=== PATIENT | male | born 1995 | race Caucasian/White ===

== ENCOUNTER 2017-07-31 16:16 | Emergency (ER) | payer MEDICARE, MEDICAID ==
[~2017-07-31] VITALS: Ht 165.1 cm; Wt 80.1 kg
[2017-07-31] MEDS ORDERED: TOPR25TA PO (16:28)
[2017-07-31] MEDS ORDERED: TRAM50TA2 PO (16:28)
[2017-07-31] MEDS ORDERED: DEPA250T32 PO (16:28)
[2017-07-31 18:36] VITALS: BP 140/89
== END 2017-07-31 18:37 | disposition home or self-care (01) ==
LOC: M ED 16:16
DX: G89.4 Chronic pain syndrome (principal); Z72.0 Tobacco use

== ENCOUNTER 2017-08-12 17:56 | Emergency (ER) | payer MEDICARE, MEDICAID ==
[~2017-08-12] VITALS: Ht 165.1 cm; Wt 82.1 kg
[~2017-08-12 17:56] MED LIST: DEPA250T32 PO; TOPR25TA PO; TRAM50TA2 PO
[2017-08-12 20:07] LABS: BASO # 0.2 10^3/uL (0.0-0.2); BASO % 1.1 % (0.0-1.0); EOS # 0.4 10^3/uL (0.0-0.50); EOS % 2.8 % (0.0-3.0); IMMATURE GRANULOCYTE % 0.2 % (0-0); LYMPH # 4.4 10^3/uL (1.5-6.5); LYMPH % 31.4 % (24.0-44.0); MEAN CORPUSCULAR HEMOGLOBIN 28.1 pg (27.0-33.0); MEAN CORPUSCULAR HGB CONC 34.2 g/dl (32.0-36.5); MEAN CORPUSCULAR VOLUME 82.2 fl (80.0-96.0); MONO # 1.1 10^3/uL (0.0-0.8); MONO % 8.1 % (0.0-5.0); NEUTROPHILS # 7.8 10^3/uL (1.8-7.7); NEUTROPHILS % 56.4 % (36.0-66.0); PLATELET COUNT, AUTOMATED 283 10^3/uL (150-450); RED CELL DISTRIBUTION WIDTH 13.2 % (11.5-14.5); WHITE BLOOD COUNT 13.9 10^3/uL (4.0-10.0)
[2017-08-12 20:31] LABS: ALBUMIN 3.8 GM/DL (3.2-5.2); ALBUMIN/GLOBULIN RATIO 1.06 (1.00-1.93); ALKALINE PHOSPHATASE 105 U/L (45-117); ALT/SGPT 88 U/L (12-78); ANION GAP 8 MEQ/L (8-16); AST/SGOT 28 U/L (15-37); BILIRUBIN,TOTAL 0.3 MG/DL (0.2-1.0); BLOOD UREA NITROGEN 10 MG/DL (7-18); CALCIUM LEVEL 9.4 MG/DL (8.5-10.1); CARBON DIOXIDE LEVEL 28 MEQ/L (21-32); CHLORIDE LEVEL 106 MEQ/L (98-107); GLOMERULAR FILTRATION RATE > 60.0 (>60); GLUCOSE, FASTING 109 MG/DL (70-105); POTASSIUM SERUM 3.8 MEQ/L (3.5-5.1); SODIUM LEVEL 142 MEQ/L (136-145); TOTAL PROTEIN 7.4 GM/DL (6.4-8.2)
--- NOTE | 2017-08-12 21:50 | REPUSA ---
Clinical history: Right upper quadrant pain. Findings: The pancreas is limited in visualization secondary to overlying bowel gas, but appears umm sly unremarkable. The liver demonstrates uniform echotexture and echogenicity, with no mass lesions. The gallbladder is unremarkable. The common bile duct measures 2 mm and is within normal limits. Ther e is no ascites. The right kidney measures 11.2 cm in length, and is unremarkable. Impression: Unremarkable ultrasound examination of the right upper quadrant.
[2017-08-12 21:59] VITALS: BP 137/91
== END 2017-08-12 22:21 | disposition home or self-care (01) ==
LOC: M ED 17:56
DX: K92.1 Melena (principal); R56.9 Unspecified convulsions; Z79.899 Other long term (current) drug therapy; Z88.8 Allergy status to other drugs, medicaments and biological substances; F17.210 Nicotine dependence, cigarettes, uncomplicated

== ENCOUNTER → 2017-09-13 | Outpatient (CLI) | payer MEDICARE, MEDICAID ==
[2017-09-13 15:53] LABS: BASO # 0.1 10^3/uL (0.0-0.2); BASO % 0.8 % (0.0-1.0); EOS # 0.4 10^3/uL (0.0-0.50); EOS % 3.3 % (0.0-3.0); IMMATURE GRANULOCYTE % 0.4 % (0-0); LYMPH # 3.5 10^3/uL (1.5-6.5); MEAN CORPUSCULAR HEMOGLOBIN 27.9 pg (27.0-33.0); MEAN CORPUSCULAR VOLUME 84.5 fl (80.0-96.0); MONO # 1.2 10^3/uL (0.0-0.8); MONO % 8.8 % (0.0-5.0); NEUTROPHILS # 7.8 10^3/uL (1.8-7.7); NEUTROPHILS % 59.7 % (36.0-66.0); PLATELET COUNT, AUTOMATED 253 10^3/uL (150-450); RED CELL DISTRIBUTION WIDTH 13.2 % (11.5-14.5); WHITE BLOOD COUNT 13.1 10^3/uL (4.0-10.0)
[2017-09-13 16:08] LABS: ALBUMIN 3.6 GM/DL (3.2-5.2); ALBUMIN/GLOBULIN RATIO 1.06 (1.00-1.93); ALKALINE PHOSPHATASE 107 U/L (45-117); ALT/SGPT 36 U/L (12-78); ANION GAP 6 MEQ/L (8-16); AST/SGOT 11 U/L (7-37); BILIRUBIN,TOTAL 0.4 MG/DL (0.2-1.0); BLOOD UREA NITROGEN 7 MG/DL (7-18); CALCIUM LEVEL 9.5 MG/DL (8.5-10.1); CARBON DIOXIDE LEVEL 33 MEQ/L (21-32); CHLORIDE LEVEL 101 MEQ/L (98-107); CREATININE FOR GFR 0.71 MG/DL (0.70-1.30); GLOMERULAR FILTRATION RATE > 60.0 (>60); GLUCOSE, FASTING 79 MG/DL (70-105); SODIUM LEVEL 140 MEQ/L (136-145)
== END ==
LOC: M LABDRAW1 13:20
PROVIDERS: ATTEND Psychiatry & Neurology Neurology
DX: G40.909 Epilepsy, unspecified, not intractable, without status epilepticus (principal)

== ENCOUNTER → 2017-09-14 | Outpatient (CLI) | payer MEDICARE, MEDICAID ==
--- NOTE | 2017-09-15 08:43 | REP ---
MRI CERVICAL SPINE WITHOUT CONTRAST: HISTORY: Spondylosis. A disc bulge is present at the C4-5 level. There is minimal effacement of the thecal sac without spinal cord compression. The C4 neural foramina are patent. There is no other disc bulge or herniation. The remaining neural foramina are patent. The spinal cord is normal in signal intensity. Normal signal intensity is present in the cervical vertebral bodies. IMPRESSION: Disc bulge at the C4-5 level without spinal cord compression. Signed by Tha Medrano MD 09/15/2017 08:54 A
--- NOTE | 2017-09-15 08:47 | REP ---
MRI LUMBAR SPINE WITHOUT CONTRAST: HISTORY: Back pain. Slight decreased signal intensity on T2-weighted images is present in the L1-2 intervertebral disc. The disc is decreased in height. These findings are consistent with disc degeneration. A diffuse disc bulge is present at the L1-2 level. There is minimal compression of the thecal sac. The L1 nerves exit the neural foramina without compression. There is no disc bulge or herniation at the L2-3, L3-4 and L5-S1 levels. The nerves exit the neural foramina without compression. A diffuse disc bulge is present at the L4-5 level. There is minimal compression of the thecal sac. The L4 nerves exit the neural foramina without compression. The conus medullaris is normal in appearance terminating at the level of the T12-L1 intervertebral disc. Normal signal intensity is present in the lumbar vertebral bodies. IMPRESSION: Diffuse disc bulges at the L1-2 and L4-5 levels with minimal thecal sac compression. Signed by Tha Medrano MD 09/15/2017 08:54 A
== END ==
LOC: M RAD 16:41
PROVIDERS: ATTEND Pain Medicine Interventional Pain Medicine
DX: M79.609 Pain in unspecified limb (principal); M79.1 Myalgia; M47.812 Spondylosis without myelopathy or radiculopathy, cervical region; M47.817 Spondylosis without myelopathy or radiculopathy, lumbosacral region; M54.12 Radiculopathy, cervical region; M54.16 Radiculopathy, lumbar region

== ENCOUNTER → 2017-09-20 | Outpatient (CLI) | payer MEDICARE, MEDICAID ==
--- NOTE | 2017-09-20 12:31 | REP ---
ULTRASOUND ABDOMEN: Real-time sonographic evaluation of the abdomen performed. The gallbladder demonstrates on evidence of intraluminal sludge or calculi, wall thickening or pericholecystic fluid. There is no intrahepatic or extrahepatic biliary dilatation, common bile duct measuring 2 mm in diameter. Liver and pancreas demonstrate homogeneous echotexture with no gross mass. Pancreatic tail is not well see due to overlying bowel gas. The spleen is normal in size with no intrinsic abnormality. The length is 11.5 cm. The kidneys are normal in size and echotexture, right kidney measuring 1.1 x 5.7 x 5.7 cm and left kidney 11.3 x 5.3 x 5.9 cm. There is no hydronephrosis, renal mass or nephrolithiasis. The abdominal aorta is normal in caliber, maximum AP diameter approximately 1.9 cm, mid aspect 1.7 cm and distally 1.5 cm. No ascites is seen. IMPRESSION: Essentially negative abdominal ultrasound. Signed by Wilton Estrada MD 09/20/2017 01:55 P
== END ==
LOC: M RAD 07:53
PROVIDERS: ATTEND Physician Assistant Medical
DX: R10.9 Unspecified abdominal pain (principal)

== ENCOUNTER → 2017-10-10 | Outpatient (CLI) | payer MEDICARE, MEDICAID ==
--- NOTE | 2017-10-10 16:23 | REP ---
Left wrist: Four views. History: Pain in the left wrist. Findings: Four views of the left wrist show overall normal mineralization. Bones, joints, soft tissues are unremarkable. No fracture or subluxation is seen. Impression: Negative left wrist radiographs. Signed by Wesley Cox MD 10/11/2017 02:43 P
== END ==
LOC: M RAD 14:34
PROVIDERS: ATTEND Physician Assistant Medical
DX: M25.532 Pain in left wrist (principal)

== ENCOUNTER → 2018-01-08 | Outpatient (REF) | payer OTHER, MEDICARE ==
[2018-01-08 17:49] LABS: BASO # 0.1 10^3/uL (0.0-0.2); BASO % 1.1 % (0.0-1.0); EOS # 0.3 10^3/uL (0.0-0.50); EOS % 2.7 % (0.0-3.0); HEMATOCRIT 49.9 % (42.0-52.0); HEMOGLOBIN 16.5 g/dl (14.0-18.0); IMMATURE GRANULOCYTE % 0.2 % (0-3.0); LYMPH # 4.5 10^3/uL (1.5-6.5); LYMPH % 40.3 % (24.0-44.0); MEAN CORPUSCULAR HGB CONC 33.1 g/dl (32.0-36.5); MEAN CORPUSCULAR VOLUME 84.6 fl (80.0-96.0); MONO # 0.8 10^3/uL (0.0-0.8); MONO % 7.6 % (0.0-5.0); NEUTROPHILS # 5.3 10^3/uL (1.8-7.7); NEUTROPHILS % 48.1 % (36.0-66.0); PLATELET COUNT, AUTOMATED 301 10^3/uL (150-450); RED CELL DISTRIBUTION WIDTH 13.4 % (11.5-14.5); WHITE BLOOD COUNT 11.1 10^3/uL (4.0-10.0)
[2018-01-08 18:21] LABS: ALBUMIN 4.3 GM/DL (3.2-5.2); ALBUMIN/GLOBULIN RATIO 1.23 (1.00-1.93); ALKALINE PHOSPHATASE 112 U/L (45-117); ALT/SGPT 72 U/L (12-78); ANION GAP 5 MEQ/L (8-16); AST/SGOT 24 U/L (7-37); BILIRUBIN,TOTAL 0.4 MG/DL (0.2-1.0); BLOOD UREA NITROGEN 11 MG/DL (7-18); CALCIUM LEVEL 9.4 MG/DL (8.5-10.1); CARBON DIOXIDE LEVEL 30 MEQ/L (21-32); CHLORIDE LEVEL 105 MEQ/L (98-107); CREATININE FOR GFR 0.75 MG/DL (0.70-1.30); GLOMERULAR FILTRATION RATE > 60.0 (>60); GLUCOSE, FASTING 79 MG/DL (70-100); POTASSIUM SERUM 4.4 MEQ/L (3.5-5.1); SODIUM LEVEL 140 MEQ/L (136-145); THYROID STIMULATING HORMONE 0.906 uIU/ML (0.358-3.740); TOTAL PROTEIN 7.8 GM/DL (6.4-8.2)
[2018-01-08 19:08] LABS: ESTIMATED AVERAGE GLUCOSE 108 MG/DL (60-110); HEMOGLOBIN A1c 5.4 %
[2018-01-08 20:41] LABS: HIV 1&2 SCREEN CENTAUR NEGATIVE (NEGATIVE)
[2018-01-08 22:20] LABS: CHLAMYDIA DNA AMPLIFICATION NEGATIVE (NEGATIVE); GC DNA AMPLIFICATION NEGATIVE (NEGATIVE)
== END ==
LOC: M LAB REF 16:31
DX: Z11.3 Encounter for screening for infections with a predominantly sexual mode of transmission (principal); Z83.3 Family history of diabetes mellitus; Z00.00 Encounter for general adult medical examination without abnormal findings

== ENCOUNTER 2018-02-22 19:52 | Emergency (ER) | payer OTHER, MEDICARE | END 2018-02-22 22:19 | disposition left against medical advice (07) | LOC: M ED 19:52 | DX: Z53.29 Procedure and treatment not carried out because of patient's decision for other reasons (principal) ==

== ENCOUNTER → 2018-06-20 | Outpatient (REF) | payer MEDICARE, MEDICAID | LOC: M SFHCLERA 13:18 | DX: L02.415 Cutaneous abscess of right lower limb (principal); L02.419 Cutaneous abscess of limb, unspecified (principal) | CPT/HCPCS: 87070; 87186 ==

== ENCOUNTER → 2018-07-12 | Outpatient (REF) | payer MEDICARE, MEDICAID ==
[2018-07-12 19:33] LABS: INR 1.01; PROTHROMBIN TIME 13.4 SECONDS (12.1-14.4)
[2018-07-12 19:36] LABS: BASO # 0.1 10^3/uL (0.0-0.2); BASO % 0.9 % (0.0-1.0); EOS # 0.2 10^3/uL (0.0-0.50); EOS % 1.7 % (0.0-3.0); HEMATOCRIT 50.9 % (42.0-52.0); HEMOGLOBIN 16.7 g/dl (13.5-17.5); IMMATURE GRANULOCYTE % 0.4 % (0-3.0); LYMPH # 3.6 10^3/uL (1.5-6.5); LYMPH % 34.9 % (24.0-44.0); MEAN CORPUSCULAR HEMOGLOBIN 27.9 pg (27.0-33.0); MEAN CORPUSCULAR HGB CONC 32.8 g/dl (32.0-36.5); MEAN CORPUSCULAR VOLUME 85.1 fl (80.0-96.0); MONO # 0.8 10^3/uL (0.0-0.8); MONO % 7.5 % (0.0-5.0); NEUTROPHILS # 5.7 10^3/uL (1.8-7.7); NEUTROPHILS % 54.6 % (36.0-66.0); PLATELET COUNT, AUTOMATED 325 10^3/uL (150-450); RED BLOOD COUNT 5.98 10^6/uL (4.30-6.10); RED CELL DISTRIBUTION WIDTH 13.3 % (11.5-14.5); WHITE BLOOD COUNT 10.4 10^3/uL (4.0-10.0)
[2018-07-12 19:38] LABS: ALBUMIN 4.6 GM/DL (3.2-5.2); ALBUMIN/GLOBULIN RATIO 1.18 (1.00-1.93); ALKALINE PHOSPHATASE 99 U/L (45-117); ALT/SGPT 64 U/L (12-78); ANION GAP 8 MEQ/L (8-16); AST/SGOT 23 U/L (7-37); BILIRUBIN,TOTAL 0.5 MG/DL (0.2-1.0); BLOOD UREA NITROGEN 9 MG/DL (7-18); CALCIUM LEVEL 9.7 MG/DL (8.5-10.1); CARBON DIOXIDE LEVEL 33 MEQ/L (21-32); CHLORIDE LEVEL 101 MEQ/L (98-107); CREATININE FOR GFR 0.79 MG/DL (0.70-1.30); GLOMERULAR FILTRATION RATE > 60.0 (>60); GLUCOSE, FASTING 94 MG/DL (70-100); POTASSIUM SERUM 3.8 MEQ/L (3.5-5.1); SODIUM LEVEL 142 MEQ/L (136-145); TOTAL PROTEIN 8.5 GM/DL (6.4-8.2)
[2018-07-12 20:43] LABS: ESTIMATED AVERAGE GLUCOSE 108 MG/DL (60-110); HEMOGLOBIN A1c 5.4 %
== END ==
LOC: M LAB REF 18:45
DX: Z01.818 Encounter for other preprocedural examination (principal); Z79.01 Long term (current) use of anticoagulants
CPT/HCPCS: 84443

== ENCOUNTER → 2018-09-03 | Outpatient (REF) | payer MEDICARE, MEDICAID ==
[2018-09-03 18:11] LABS: BASO # 0.1 10^3/uL (0.0-0.2); BASO % 0.9 % (0.0-1.0); EOS # 0.2 10^3/uL (0.0-0.50); EOS % 1.6 % (0.0-3.0); HEMATOCRIT 47.3 % (42.0-52.0); HEMOGLOBIN 15.9 g/dl (13.5-17.5); IMMATURE GRANULOCYTE % 0.3 % (0-3.0); LYMPH # 3.7 10^3/uL (1.5-6.5); LYMPH % 29.9 % (24.0-44.0); MEAN CORPUSCULAR HEMOGLOBIN 28.1 pg (27.0-33.0); MEAN CORPUSCULAR HGB CONC 33.6 g/dl (32.0-36.5); MEAN CORPUSCULAR VOLUME 83.6 fl (80.0-96.0); MONO # 0.6 10^3/uL (0.0-0.8); MONO % 4.8 % (0.0-5.0); NEUTROPHILS # 7.8 10^3/uL (1.8-7.7); NEUTROPHILS % 62.5 % (36.0-66.0); PLATELET COUNT, AUTOMATED 256 10^3/uL (150-450); RED BLOOD COUNT 5.66 10^6/uL (4.30-6.10); RED CELL DISTRIBUTION WIDTH 13.9 % (11.5-14.5); WHITE BLOOD COUNT 12.4 10^3/uL (4.0-10.0)
[2018-09-03 18:27] LABS: ALBUMIN 4.3 GM/DL (3.2-5.2); ALBUMIN/GLOBULIN RATIO 1.23 (1.00-1.93); ALKALINE PHOSPHATASE 101 U/L (45-117); ALT/SGPT 27 U/L (12-78); ANION GAP 11 MEQ/L (8-16); AST/SGOT 14 U/L (7-37); BILIRUBIN,TOTAL 0.4 MG/DL (0.2-1.0); BLOOD UREA NITROGEN 6 MG/DL (7-18); CALCIUM LEVEL 9.8 MG/DL (8.5-10.1); CARBON DIOXIDE LEVEL 31 MEQ/L (21-32); CHLORIDE LEVEL 96 MEQ/L (98-107); CREATININE FOR GFR 0.72 MG/DL (0.70-1.30); FREE THYROXINE INDEX 2.5 % (1.4-3.8); GLOMERULAR FILTRATION RATE > 60.0 (>60); GLUCOSE, FASTING 109 MG/DL (70-100); POTASSIUM SERUM 3.4 MEQ/L (3.5-5.1); SODIUM LEVEL 138 MEQ/L (136-145); T UPTAKE 29 % (33-40); THYROID STIMULATING HORMONE 0.702 uIU/ML (0.358-3.740); THYROXINE (T4) 8.6 UG/DL (4.5-12.0); TOTAL PROTEIN 7.8 GM/DL (6.4-8.2); VALPROIC ACID (DEPAKOTE) 33.2 UG/ML (50.0-100.0)
[2018-09-03 18:28] LABS: TOTAL 25(OH) VITAMIN D 21.5 NG/ML (30.0-100.0)
[2018-09-03 19:24] LABS: ESTIMATED AVERAGE GLUCOSE 108 MG/DL (60-110); HEMOGLOBIN A1c 5.4 %
== END ==
LOC: M LAB REF 16:30
DX: F34.1 Dysthymic disorder (principal)
CPT/HCPCS: 84443

== ENCOUNTER → 2018-09-03 | Outpatient (REF) | payer MEDICARE, MEDICAID | LOC: M LAB REF 17:43 | DX: F34.1 Dysthymic disorder (principal) ==

== ENCOUNTER → 2019-05-07 | Outpatient (CLI) | payer MEDICARE, MEDICAID ==
[~2019-05-07] MED LIST changes: +HYDR25TAB; +OMEP40CA2; +VENTOLIN
[2019-05-07 09:23] LABS: ALBUMIN 3.9 GM/DL (3.2-5.2); ALT/SGPT 30 U/L (12-78); BILIRUBIN,TOTAL 0.3 MG/DL (0.2-1.0); BLOOD UREA NITROGEN 8 MG/DL (7-18); CALCIUM LEVEL 9.4 MG/DL (8.5-10.1); CARBON DIOXIDE LEVEL 33 MEQ/L (21-32); CHLORIDE LEVEL 110 MEQ/L (98-107); CREATININE FOR GFR 0.82 MG/DL (0.70-1.30); GLOMERULAR FILTRATION RATE > 60.0 (>60); GLUCOSE, FASTING 98 MG/DL (70-100); POTASSIUM SERUM 3.3 MEQ/L (3.5-5.1); SODIUM LEVEL 132 MEQ/L (136-145); TOTAL PROTEIN 7.3 GM/DL (6.4-8.2); VALPROIC ACID (DEPAKOTE) 14.3 UG/ML (50.0-100.0)
== END ==
LOC: M LAB 08:19
PROVIDERS: ATTEND Nurse Practitioner Family
DX: G40.89 Other seizures (principal); R40.4 Transient alteration of awareness

== ENCOUNTER 2019-05-22 16:19 | Emergency (ER) | payer MEDICARE, MEDICAID ==
[~2019-05-22] VITALS: Ht 165.1 cm; Wt 75.9 kg
[2019-05-22] MEDS ORDERED: RANI150T14 (16:39)
[2019-05-22] MEDS ORDERED: DICL50TAB (16:39)
[2019-05-22] MEDS ORDERED: METO1TAB32 (16:39)
[2019-05-22] MEDS ORDERED: ACETAMINOPHEN TAB 650MG DOSE (2X325MG) PO ONE (17:45)
[2019-05-22] MEDS ORDERED: KETOROLAC 60 MG/2 ML VIAL (J1885) IM ONE (17:45)
--- NOTE | 2019-05-22 18:57 | REPVR ---
EXAM: CT Lumbar Spine Without Contrast EXAM DATE/TIME: 05/22/2019 5:54 PM CLINICAL HISTORY: 23 years old, male; Pain; Sciatica; Additional info: Low back pain, sciatica TECHNIQUE: Imaging protocol: Computed tomography images of the lumbar spine without contrast. Coronal and sagittal reformatted images were created and reviewed. Radiation optimization: All CT scans at this facility use at least one of these dose optimization techniques: automated exposure control; mA and/or kV adjustment per patient size (includes targeted exams where dose is matched to clinical indication); or iterative reconstruction. COMPARISON: MRI-Spine, L.S. without con 09/14/2017 5:07 PM FINDINGS: No segmental lumbar vertebral malalignment. Vertebral body height and morphology is maintained. No acute fracture or destructive process. Intervertebral disc height is maintained for age. No CT evidence of a large disc extrusion. Mild posterior annular ossification L1-2. No significant spinal canal narrowing. Appearance is similar compared to the prior MRI No dilatation of the imaged distal abdominal aorta. No significant abnormality of the imaged retroperitoneum. IMPRESSION: No fracture or other acute abnormality involving the lumbar spine. Minor stable disc bulge and annular ossification L1-2, similar to prior MRI Electronically signed by: Shiva Aguilar On 05/22/2019 18:57:26 PM
[2019-05-22] MEDS ORDERED: ROBA500T PO (19:06)
[2019-05-22] MEDS ORDERED: MEDR4PAK PO (19:06)
[2019-05-22 19:14] VITALS: BP 118/60
== END 2019-05-22 19:46 | disposition home or self-care (01) ==
LOC: M ED 16:19
DX: M54.42 Lumbago with sciatica, left side (principal); M51.36 Other intervertebral disc degeneration, lumbar region; M51.26 Other intervertebral disc displacement, lumbar region; Z72.0 Tobacco use; R56.9 Unspecified convulsions; I10 Essential (primary) hypertension; J44.9 Chronic obstructive pulmonary disease, unspecified; Z79.899 Other long term (current) drug therapy; Z88.8 Allergy status to other drugs, medicaments and biological substances
CPT/HCPCS: 72131; 96372; 99283; J1885

== ENCOUNTER 2019-08-02 04:29 | Inpatient (IN) | payer MEDICARE, MEDICAID ==
[~2019-08-02] VITALS: Ht 167.6 cm; Wt 75.5 kg
[~2019-08-02 04:29] MED LIST changes: +DICL50TAB; +MEDR4PAK PO; +METO1TAB32; +RANI150T14; +ROBA500T PO
[2019-08-02 05:31] LABS: HEMATOCRIT 47.5 % (42.0-52.0); HEMOGLOBIN 15.8 g/dl (13.5-17.5); MEAN CORPUSCULAR HEMOGLOBIN 28.3 pg (27.0-33.0); MEAN CORPUSCULAR HGB CONC 33.3 g/dl (32.0-36.5); PLATELET COUNT, AUTOMATED 281 10^3/uL (150-450); RED BLOOD COUNT 5.59 10^6/uL (4.30-6.10); WHITE BLOOD COUNT 9.6 10^3/uL (4.0-10.0)
[2019-08-02 06:07] LABS: ACETAMINOPHEN LEVEL < 2.0 UG/ML (10.0-30.0); ALT/SGPT 27 U/L (12-78); BILIRUBIN,DIRECT 0.1 MG/DL (0.0-0.2); BILIRUBIN,TOTAL 0.3 MG/DL (0.2-1.0); BLOOD UREA NITROGEN 9 MG/DL (7-18); CALCIUM LEVEL 9.1 MG/DL (8.5-10.1); CARBON DIOXIDE LEVEL 26 MEQ/L (21-32); CHLORIDE LEVEL 104 MEQ/L (98-107); CREATININE FOR GFR 0.86 MG/DL (0.70-1.30); ETHYL ALCOHOL (ETHANOL) < 0.003 % (0.000-0.010); GLOMERULAR FILTRATION RATE > 60.0 (>60); GLUCOSE, FASTING 134 MG/DL (70-100); POTASSIUM SERUM 3.6 MEQ/L (3.5-5.1); SALICYLATE LEVEL 3.5 MG/DL (5.0-30.0); SODIUM LEVEL 140 MEQ/L (136-145); THYROID STIMULATING HORMONE 0.705 uIU/ML (0.358-3.740); TOTAL PROTEIN 7.1 GM/DL (6.4-8.2)
[2019-08-02 06:09] LABS: AMPHETAMINES LEVEL URINE NEGATIVE (NEGATIVE); BARBITURATES URINE NEGATIVE (NEGATIVE); BENZODIAZEPINES URINE NEGATIVE (NEGATIVE); CANNABINOIDS URINE POSITIVE (NEGATIVE); COCAINE METABOLITE URINE NEGATIVE (NEGATIVE); METHADONE URINE NEGATIVE (NEGATIVE); OPIATES URINE NEGATIVE (NEGATIVE); PHENCYCLIDINE URINE NEGATIVE (NEGATIVE)
[2019-08-02] MEDS ORDERED: traZODone 50 MG TAB PO PRN (06:45)
[2019-08-02] MEDS ORDERED: MAALOX 30 ML SUSP *UDC PO PRN (06:45)
[2019-08-02] MEDS ORDERED: MOM 30ML SUSPENSION UDC PO PRN (06:45)
[2019-08-02] MEDS ORDERED: DIVA250T67 PO (06:47)
[2019-08-02] MEDS ORDERED: LOSA25TA14 PO (06:47)
[2019-08-02] MEDS ORDERED: HYDR-3363 PO (06:47)
[2019-08-02] MEDS ORDERED: PROAAER10 INH (06:47)
[2019-08-02] MEDS ORDERED: OMEP-221 PO (06:47)
[2019-08-02] MEDS ORDERED: CLOT1CRE71 TOP (06:47)
[2019-08-02] MEDS: NICOTINE 21MG/24HR 1 EA TRANSDERMAL TD SCH (09:18)
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
[2019-08-02 15:39] VITALS: BP 131/88
[2019-08-02] MEDS: ACETAMINOPHEN TAB 650MG DOSE (2X325MG) PO PRN (17:17)
[2019-08-02] MEDS ORDERED: OLANZapine ORAL DISINTEGRATING TAB 5MG PO SCH ×2 (18:00→21:00)
[2019-08-02] MEDS ORDERED: OLANZapine ORAL DISINTEGRATING TAB 5MG PO PRN (18:00)
[2019-08-02] MEDS: hydrOXYzine 25 MG TAB PO SCH (21:37)
[2019-08-03 06:52] VITALS: BP 133/74
[2019-08-03] MEDS ORDERED: VENLAFAXINE **XR** 37.5 MG CAPSULE PO SCH (09:00)
[2019-08-03] MEDS: NICOTINE 21MG/24HR 1 EA TRANSDERMAL TD SCH (09:09)
[2019-08-03] MEDS ORDERED: ALBUTEROL 90 MCG/ACT 8GM HFA INHALER INH PRN (09:15)
[2019-08-03] MEDS: DIVALPROEX 250 MG TAB PO SCH ×2 (09:24→21:41)
[2019-08-03] MEDS: ACETAMINOPHEN TAB 650MG DOSE (2X325MG) PO PRN (09:25)
[2019-08-03] MEDS: OMEPRAZOLE 20 MG CAP PO SCH (09:25)
[2019-08-03] MEDS: LOSARTAN 25 MG TAB PO SCH (09:50)
--- NOTE | 2019-08-03 13:01 | HPEPDOC ---
[facility] Medical History & Physical Date of Admission Aug 03, 2019 Date of Service: Aug 03, 2019 History and Physical CHIEF COMPLAINT: Medical co-management HISTORY OF PRESENT ILLNESS: 23 yo male admitted to [facility], complains of chronic back pain. Denies chest pain, shortness of breath, headaches, changes in vision, N/V/D, bladder/bowel symptoms, numbness/tingling lower extremities, saddle paresthesia. PAST MEDICAL HISTORY: COPD as per patient SOCIAL HISTORY: Tobacco use:13 pack year history ETOH: denies Illicit drug use: admits to occasional marijuana use ALLERGIES: Please see below. REVIEW OF SYSTEMS: Negative except as per HPI. HOME MEDICATIONS: Please see below. PHYSICAL EXAMINATION: VITAL SIGNS: See below General: NAD, sitting comfortably in bed HEENT: NC/AT, EOMI, PERRL Lungs: CTA B/L Heart: +S1S2, RRR Abd: soft, NT, +BS Ext: no edema LABORATORY DATA: See below. MICROBIOLOGY: Please see below. ASSESSMENT: 23 yo male admitted to [facility], PMHx of COPD as per patient, nicotine abuse. #COPD - as per patient - admits to nicotine use - continue with nicotine replacement therapy #psych - as per primary team #chronic back pain - no alarming symptoms Vital Signs Vital Signs Date Time Temp Pulse Resp B/P (MAP) Pulse Ox O2 Delivery O2 Flow Rate FiO2 08/03/19 09:50 131/84 08/03/19 06:52 97.1 71 16 08/02/19 08:13 98 Room Air Home Medications Scheduled Divalproex Sodium (Divalproex Sodium) 250 Mg Tablet.dr, 250 MG PO BID Hydroxyzine HCl (Hydroxyzine HCl) 25 Mg Tablet, 25 MG PO QHS Losartan Potassium (Losartan Potassium) 25 Mg Tablet, 25 MG PO DAILY Omeprazole (Omeprazole) 40 Mg Capsule.dr, 40 MG PO DAILY Scheduled PRN Albuterol Sulfate (Proair Hfa) 8.5 Gm Hfa.aer.ad, 2 PUFF INH Q4H PRN for SHORTNESS OF BREATH Clotrimazole/Betamethasone Dip (Clotrimazole-Betamethasone Crm) 15 Gm Cream..g., 1 DOSE TOP BID PRN for RASH APPLIES TO LEGS AND ARMS NEEDED Allergies Coded Allergies: ondansetron (Verified Allergy, Unknown, 05/22/19) A-FIB/CHADSVASC A-FIB History Current/History of A-Fib/PAF?: No VON WORLEY MD Aug 03, 2019 13:01
[2019-08-03] MEDS ORDERED: LORazepam 1 MG TAB PO STA (14:53)
[2019-08-03] MEDS ORDERED: LORazepam 1 MG TAB PO PRN (15:00)
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
[2019-08-03 16:03] VITALS: BP 135/87
[2019-08-03] MEDS: hydrOXYzine 25 MG TAB PO SCH (21:41)
[2019-08-03] MEDS: OLANZapine 10 MG TAB PO SCH (21:41)
[2019-08-03] MEDS: CLOTRIMAZOLE 1% TOPICAL CREAM 30GM TOP PRN (22:05)
[2019-08-04 06:37] VITALS: BP 115/68
[2019-08-04] MEDS: NICOTINE 21MG/24HR 1 EA TRANSDERMAL TD SCH (08:03)
[2019-08-04] MEDS: DIVALPROEX 250 MG TAB PO SCH ×2 (08:03→19:51)
[2019-08-04] MEDS: OMEPRAZOLE 20 MG CAP PO SCH (08:03)
[2019-08-04] MEDS: OLANZapine 5 MG TAB PO SCH (08:04)
[2019-08-04] MEDS: LOSARTAN 25 MG TAB PO SCH (08:06)
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
[2019-08-04] MEDS: ACETAMINOPHEN TAB 650MG DOSE (2X325MG) PO PRN ×2 (13:06→19:51)
[2019-08-04 16:03] VITALS: BP 129/75
[2019-08-04] MEDS: OLANZapine 10 MG TAB PO SCH (19:51)
[2019-08-04] MEDS: hydrOXYzine 25 MG TAB PO SCH (19:51)
[2019-08-04] MEDS: CLOTRIMAZOLE 1% TOPICAL CREAM 30GM TOP PRN (19:53)
[2019-08-05] MEDS ORDERED: IBUPROFEN 800 MG TAB PO ONE (00:11)
[2019-08-05 06:20] VITALS: BP 134/77
[2019-08-05 08:12] VITALS: BP 133/91
[2019-08-05] MEDS: DIVALPROEX 250 MG TAB PO SCH (08:12)
[2019-08-05] MEDS: OLANZapine 5 MG TAB PO SCH (08:12)
[2019-08-05] MEDS: LOSARTAN 25 MG TAB PO SCH (08:12)
[2019-08-05] MEDS: OMEPRAZOLE 20 MG CAP PO SCH (08:12)
[2019-08-05] MEDS: NICOTINE 21MG/24HR 1 EA TRANSDERMAL TD SCH (08:13)
[2019-08-05] MEDS ORDERED: NICO21PAT TD (09:23)
[2019-08-05] MEDS ORDERED: OLAN10TA2 PO (09:23)
--- NOTE | 2019-08-05 09:29 | MHDSPDOC ---
[facility] Discharge Summary Discharge Summary DATE OF ADMISSION: Aug 02, 2019 at 06:41 DATE OF DISCHARGE: 08/05/19 Discharge Chuck Pappas MRN: N/A Date of : N/A Date of Service: 08/05/2019 Diagnoses Unspecified psychotic disorder. Rule out substance-induced versus schizophrenia versus bipolar. Tobacco use disorder, use disorder, severe. Alcohol use disorder, severe, in remission. History of Present Illness The patient, a 23-year-old man, presented to [facility] claiming suicidal thoughts, auditory hallucinations, increasing paranoia, grandiose thoughts and difficulty attending to his basic needs. He reports he has moved out from [place] to be with his "." He continued to report that his thoughts have become more complex and that he started to endorse suicidal thoughts. He is not established with any mental health care providers in the local area, but had previously been on medications that was "really helpful." Consultants Involved Hospitalist/PCP screening Treatment and Progress On The Unit The patient was admitted to the inpatient unit, started on Zyprexa 5 mg nightly. He was noted to have some paranoia and bizarreness, but was generally amenable. Over the weekend, it was noted that he had some paranoia and did focus on a specific staff member, however, he demonstrated no concerning ideation or behavior, had been denying suicidal or homicidal ideation and had been amenable to staff redirection. On discharge, he had 10 mg nightly of Zyprexa, 5 mg in the morning with positive effects. The patient requested discharge and on the day of discharge, he did not meet involuntary criteria on my clinical judgment as despite his odd manner at times and reported episodes of paranoia, he has not acted on them or posing a significant danger to himself or others and has been denying suicidality prior to his discharge. He declined further voluntary admission and thus was discharged in good brigette as he could no longer be held against his will. He was able to cooperate with this discharge sufficiently well and his presented collateral information suggesting that the patient's functionality is close to his baseline at this time. Discharge Assessment The patient a 23-year-old man with a history schizoaffective disorder presents with auditory hallucinations after a reported stressor as well as suicidal thoughts. These quickly resolved with medication management. He does have some paranoia at times and can select certain individuals to be reserved around, however, when around this provider and most of his regular treatment team, he is amenable, friendly and although a slight bit odd, he does not meet involuntary criteria for further extension of his admission and declines voluntary. Mental Status Examination General: Fair Speech: Spontaneous and fluid Thought processes: Linear MSK: Smooth and coordinated gait, no signs of tremors or involuntary orofacial movements Thought content: Future orientated Abstract reasoning, and computation: Intact Description of associations: Intact Description of abnormal or psychotic thoughts: Denies any suicidal or homicidal ideation. Denies any auditory or visual hallucinations. Does not appear to be responding to internal stimuli. Does not appear to be endorsing any bizarre or paranoid ideation. Judgment: Improved Insight: Improved Orientation: Alert and orientated 3 Cognition: Grossly normal Recent and remote memory: Intact Attention span and concentration: Intact Fund of knowledge: Adequate Mood: "okay" Affect: Euthymic with a full range Follow Up The social work team worked during the predischarge meeting in order to evaluate for further issues of lethality address them fully before discharge. They worked on safety planning with the patient's family members in order to ensure that the patient will have a safe and effective discharge. Time Spent The amount of time spent in the coordination of care for this patient was approximately 20 minutes. Monday Vital Signs/I&Os Vital Signs Date Time Temp Pulse Resp B/P (MAP) Pulse Ox O2 Delivery O2 Flow Rate FiO2 08/05/19 08:12 133/91 08/05/19 06:20 97.8 65 16 08/02/19 08:13 98 Room Air Medications Scheduled Divalproex Sodium (Divalproex Sodium) 250 Mg Tablet.dr, 250 MG PO BID, (Reported) Hydroxyzine HCl (Hydroxyzine HCl) 25 Mg Tablet, 25 MG PO QHS, (Reported) Losartan Potassium (Losartan Potassium) 25 Mg Tablet, 25 MG PO DAILY, (Reported) Nicotine (Nicotine Patch) 21 Mg Patch.td24, 1 PATCH TD DAILY for tobacco for 30 Days, #30 Olanzapine (Olanzapine) 10 Mg Tablet, 10 MG PO ASDIRECTED for thoughts for 7 Days, #12 take 1/2 tab qam and 1 tab qhs Omeprazole (Omeprazole) 40 Mg Capsule.dr, 40 MG PO DAILY, (Reported) Scheduled PRN Albuterol Sulfate (Proair Hfa) 8.5 Gm Hfa.aer.ad, 2 PUFF INH Q4H PRN for SHORTNESS OF BREATH, (Reported) Clotrimazole/Betamethasone Dip (Clotrimazole-Betamethasone Crm) 15 Gm Cream..g., 1 DOSE TOP BID PRN for RASH, (Reported) APPLIES TO LEGS AND ARMS NEEDED Allergies Coded Allergies: ondansetron (Verified Allergy, Unknown, 05/22/19) TOÑO PRYOR DO Aug 05, 2019 09:29
== END 2019-08-05 12:00 | disposition home or self-care (01) | DRG 885 ==
LOC: M ED 04:29 → M ED INP 06:41 → M PSY 08:56
PROVIDERS: ADMIT Psychiatry & Neurology Addiction Medicine; ATTEND Psychiatry & Neurology Addiction Medicine
DX: F29 Unspecified psychosis not due to a substance or known physiological condition (principal); F20.9 Schizophrenia, unspecified; F31.9 Bipolar disorder, unspecified; Z62.810 Personal history of physical and sexual abuse in childhood; F90.9 Attention-deficit hyperactivity disorder, unspecified type; F17.210 Nicotine dependence, cigarettes, uncomplicated; F12.20 Cannabis dependence, uncomplicated; F10.21 Alcohol dependence, in remission; Z88.8 Allergy status to other drugs, medicaments and biological substances; Z79.899 Other long term (current) drug therapy; M54.9 Dorsalgia, unspecified; J44.9 Chronic obstructive pulmonary disease, unspecified; F22 Delusional disorders

== ENCOUNTER 2019-08-10 18:11 | Emergency (ER) | payer MEDICARE, MEDICAID, OTHER ==
[~2019-08-10] VITALS: Ht 165.1 cm; Wt 74.1 kg
[~2019-08-10 18:11] MED LIST changes: +CLOT1CRE71 TOP; +DIVA250T67 PO; +HYDR-3363 PO; +LOSA25TA14 PO; +NICO21PAT TD; +OLAN10TA2 PO; +OMEP-221 PO; -OMEP40CA2; +OMEP40CA97; +PROAAER10 INH
[2019-08-10 19:44] LABS: INFLUENZA A AMPLIFICATION NEGATIVE (NEGATIVE); INFLUENZA B AMPLIFICATION NEGATIVE (NEGATIVE)
[2019-08-10 20:01] VITALS: BP 139/86
== END 2019-08-10 20:08 | disposition home or self-care (01) ==
LOC: M ED 18:11
DX: J06.9 Acute upper respiratory infection, unspecified (principal); I10 Essential (primary) hypertension; F31.9 Bipolar disorder, unspecified; F42.9 Obsessive-compulsive disorder, unspecified; F84.0 Autistic disorder; F17.200 Nicotine dependence, unspecified, uncomplicated; J44.9 Chronic obstructive pulmonary disease, unspecified; K21.9 Gastro-esophageal reflux disease without esophagitis; Z88.8 Allergy status to other drugs, medicaments and biological substances; Z79.899 Other long term (current) drug therapy

== ENCOUNTER 2019-08-24 17:39 | Emergency (ER) | payer MEDICARE, MEDICAID ==
[~2019-08-24] VITALS: Ht 165.1 cm; Wt 76.8 kg
[2019-08-24] MEDS ORDERED: AMPICILLIN SOD/SULBACTAM SOD 3 GM in D5W MINI-BAG PLUS 100 ML IV ONE (18:15)
[2019-08-24 18:39] LABS: HEMATOCRIT 51.5 % (42.0-52.0); HEMOGLOBIN 17.3 g/dl (13.5-17.5); MEAN CORPUSCULAR HEMOGLOBIN 28.2 pg (27.0-33.0); MEAN CORPUSCULAR HGB CONC 33.6 g/dl (32.0-36.5); MEAN CORPUSCULAR VOLUME 83.9 fl (80.0-96.0); PLATELET COUNT, AUTOMATED 294 10^3/uL (150-450); RED BLOOD COUNT 6.14 10^6/uL (4.30-6.10); WHITE BLOOD COUNT 12.3 10^3/uL (4.0-10.0)
[2019-08-24 18:57] LABS: BLOOD UREA NITROGEN 7 MG/DL (7-18); CALCIUM LEVEL 9.5 MG/DL (8.5-10.1); CARBON DIOXIDE LEVEL 31 MEQ/L (21-32); CHLORIDE LEVEL 104 MEQ/L (98-107); CREATININE FOR GFR 0.75 MG/DL (0.70-1.30); GLOMERULAR FILTRATION RATE > 60.0 (>60); GLUCOSE, FASTING 86 MG/DL (70-100); POTASSIUM SERUM 4.1 MEQ/L (3.5-5.1); SODIUM LEVEL 141 MEQ/L (136-145)
[2019-08-24] MEDS ORDERED: AMOX875T2 PO (19:11)
[2019-08-24 19:24] VITALS: BP 135/86
--- NOTE | 2019-08-25 08:35 | REP ---
LEFT 1ST DIGIT, FOUR VIEWS: Four views of left 1st digit performed. No fracture, dislocation, or intrinsic bone disease is seen. There is no evidence of radiopaque foreign body. Electronically Signed by Wilton Estrada MD 08/25/2019 12:26 P
== END 2019-08-24 19:27 | disposition home or self-care (01) ==
LOC: M ED 17:39
DX: S61.052A Open bite of left thumb without damage to nail, initial encounter (principal); W55.01XA Bitten by cat, initial encounter; Y92.009 Unspecified place in unspecified non-institutional (private) residence as the place of occurrence of the external cause; Y93.89 Activity, other specified; Y99.8 Other external cause status; I10 Essential (primary) hypertension; F17.210 Nicotine dependence, cigarettes, uncomplicated; Z79.899 Other long term (current) drug therapy; Z88.8 Allergy status to other drugs, medicaments and biological substances

== ENCOUNTER → 2019-09-16 | Outpatient (REF) | payer MEDICARE, MEDICAID ==
[~2019-09-16] MED LIST changes: +AMOX875T2 PO
== END ==
LOC: M SFHCPLAZ 15:34
PROVIDERS: ATTEND Family Medicine
DX: E66.9 Obesity, unspecified (principal); F20.9 Schizophrenia, unspecified; Z53.8 Procedure and treatment not carried out for other reasons

== ENCOUNTER → 2019-10-17 | Outpatient (REF) | payer MEDICARE, MEDICAID ==
[2019-10-17 15:47] LABS: CHOLESTEROL RISK RATIO 5.357 (<5)
[2019-10-17 16:11] LABS: HEMOGLOBIN A1c 5.8 %
== END ==
LOC: M SFHCPLAZ 13:52
DX: Z00.00 Encounter for general adult medical examination without abnormal findings (principal); Z79.899 Other long term (current) drug therapy
CPT/HCPCS: 36415; 80061; 83036; G0463

== ENCOUNTER → 2019-11-01 | Outpatient (CLI) | payer MEDICARE, MEDICAID ==
[2019-11-01 09:46] LABS: HEMATOCRIT 50.6 % (42.0-52.0); MEAN CORPUSCULAR HGB CONC 31.6 g/dl (32.0-36.5); MEAN CORPUSCULAR VOLUME 85.3 fl (80.0-96.0); PLATELET COUNT, AUTOMATED 320 10^3/uL (150-450); RED BLOOD COUNT 5.93 10^6/uL (4.30-6.10); WHITE BLOOD COUNT 10.9 10^3/uL (4.0-10.0)
[2019-11-01 10:05] LABS: HEMOGLOBIN A1c 5.6 %
[2019-11-01 10:18] LABS: ATYPICAL LYMPH 1 % (0-5); BASOPHILS 2 % (0-1); EOSINOPHILS 5 % (0-3); LYMPHOCYTES 50 % (16-44); MONOCYTES 1 % (0-5); NEUTROPHILS 41 % (28-66)
[2019-11-01 10:19] LABS: PLATELET ESTIMATE NORMAL (NORMAL)
[2019-11-01 10:20] LABS: ANISOCYTOSIS 1+
[2019-11-01 10:25] LABS: CHOLESTEROL RISK RATIO 5.833 (<5)
== END ==
LOC: M LAB 08:38
PROVIDERS: ATTEND Student in an Organized Health Care Education/Training Program
DX: E66.9 Obesity, unspecified (principal); F20.9 Schizophrenia, unspecified; Z79.899 Other long term (current) drug therapy

== ENCOUNTER 2019-11-05 12:11 | Day surgery (SDC) | payer MEDICARE, MEDICAID ==
[~2019-11-05] VITALS: Ht 165.1 cm; Wt 84.0 kg
[~2019-11-05 12:11] MED LIST changes: +NS 1,000 ML IV ONE
[2019-11-05] MEDS ORDERED: LIDOCAINE 2% INJ 100 MG/5 ML SDV (FOR ANES.) As Ordered ONE (12:45)
[2019-11-05] MEDS ORDERED: propofoL 200 MG/20 ML VIAL As Ordered ONE (12:45)
[2019-11-05] MEDS ORDERED: fentaNYL 100 MCG/2 ML INJECTION (J3010) As Ordered ONE (13:55)
--- NOTE | 2019-11-05 14:26 | ROOR ---
Patient Name: Chuck Pappas Procedure Date: 11/05/2019 1:52 PM Date of : 1995 Age: 23 Room: [facility] Gender: Male Note Status: Finalized Procedure: Upper GI endoscopy Indications: Heartburn, Suspected gastro-esophageal reflux disease Providers: Deny Woods MD Referring MD: RACHELLE KILLIAN [facility] RACHELLE Benz Requesting Provider: Medicines: Monitored Anesthesia Care Complications: No immediate complications. Procedure: Pre-Anesthesia Assessment: - Prior to the procedure, a History and Physical was performed, and patient medications and allergies were reviewed. The patient is competent. The risks and benefits of the procedure and the sedation options and risks were discussed with the patient. All questions were answered and informed consent was obtained. Patient identification and proposed procedure were verified by the physician, the nurse and the anesthesiologist in the procedure room. Mental Status Examination: alert and oriented. Airway Examination: normal oropharyngeal airway and neck mobility. Respiratory Examination: clear to auscultation. CV Examination: normal. Prophylactic Antibiotics: The patient does not require prophylactic antibiotics. Prior Anticoagulants: The patient has taken no previous anticoagulant or antiplatelet agents. ASA Grade Assessment: II - A patient with mild systemic disease. After reviewing the risks and benefits, the patient was deemed in satisfactory condition to undergo the procedure. The anesthesia plan was to use monitored anesthesia care (MAC). Immediately prior to administration of medications, the patient was re-assessed for adequacy to receive sedatives. The heart rate, respiratory rate, oxygen saturations, blood pressure, adequacy of pulmonary ventilation, and response to care were monitored throughout the procedure. The physical status of the patient was re-assessed after the procedure. The Endoscope was introduced through the mouth, and advanced to the second part of duodenum. The upper GI endoscopy was accomplished without difficulty. The patient tolerated the procedure well. Findings: LA Grade A (one or more mucosal breaks less than 5 mm, not extending between tops of 2 mucosal folds) esophagitis with no bleeding was found in the distal esophagus. Biopsies were taken with a cold forceps for histology. Verification of patient identification for the specimen was done by the physician and nurse using the patient's name, date and medical record number. Estimated blood loss was minimal. Scattered mild inflammation characterized by friability and granularity was found in the gastric antrum. Biopsies were taken with a cold forceps for Helicobacter pylori testing. The duodenal bulb and second portion of the duodenum were normal. Impression: - LA Grade A reflux esophagitis. Biopsied. - Gastritis. Biopsied. - Normal duodenal bulb and second portion of the duodenum. Recommendation: - Patient has a contact number available for emergencies. The signs and symptoms of potential delayed complications were discussed with the patient. Return to normal activities tomorrow. Written discharge instructions were provided to the patient. - Resume previous diet. - Continue present medications. - Follow an antireflux regimen. - Await pathology results. - Telephone GI clinic for pathology results in 2 weeks. - Return to primary care physician. Deny Woods MD Deny Woods MD 11/05/2019 2:25:42 PM Electronically signed by Deny Woods MD Number of Addenda: 0 Note Initiated On: 11/05/2019 1:52 PM Estimated Blood Loss: Estimated blood loss was minimal.
[2019-11-05 14:35] VITALS: BP 121/76
== END 2019-11-05 14:46 | disposition home or self-care (01) ==
LOC: M OPP 12:11
PROVIDERS: ATTEND Internal Medicine Gastroenterology
DX: K21.0 Gastro-esophageal reflux disease with esophagitis (principal); K29.70 Gastritis, unspecified, without bleeding; R12 Heartburn
CPT/HCPCS: 43239; 88305; J3010

== ENCOUNTER → 2020-02-07 | Outpatient (REF) | payer MEDICARE, MEDICAID ==
[~2020-02-07] MED LIST changes: -NS 1,000 ML IV ONE
[2020-02-07 17:49] LABS: HEMOGLOBIN A1c 5.9 %
== END ==
LOC: M SFHCPLAZ 14:43
DX: R73.03 Prediabetes (principal); Z23 Encounter for immunization
CPT/HCPCS: 83036; 90471; 90732; G0463

== ENCOUNTER 2020-03-13 19:21 | Emergency (ER) | payer MEDICARE, MEDICAID ==
[~2020-03-13] VITALS: Ht 167.6 cm; Wt 94.7 kg
[2020-03-13] MEDS ORDERED: METF-838 PO (19:28)
[2020-03-13 20:23] LABS: BASO # 0.1 10^3/uL (0.0-0.2); EOS # 0.2 10^3/uL (0.0-0.5); EOS % 1.9 % (0.0-3.0); HEMATOCRIT 48.8 % (42.0-52.0); HEMOGLOBIN 16.1 g/dl (13.5-17.5); LYMPH # 4.4 10^3/uL (1.5-5.0); LYMPH % 37.9 % (24.0-44.0); MEAN CORPUSCULAR HEMOGLOBIN 27.1 pg (27.0-33.0); MEAN CORPUSCULAR VOLUME 82.2 fl (80.0-96.0); MONO # 0.8 10^3/uL (0.0-0.8); MONO % 6.6 % (0.0-5.0); NEUTROPHILS % 52.3 % (36.0-66.0); PLATELET COUNT, AUTOMATED 303 10^3/uL (150-450); RED BLOOD COUNT 5.94 10^6/uL (4.30-6.10); WHITE BLOOD COUNT 11.6 10^3/uL (4.0-10.0)
[2020-03-13 20:49] LABS: BLOOD UREA NITROGEN 8 MG/DL (7-18); CALCIUM LEVEL 9.2 MG/DL (8.5-10.1); CARBON DIOXIDE LEVEL 31 MEQ/L (21-32); CHLORIDE LEVEL 105 MEQ/L (98-107); CREATININE FOR GFR 0.74 MG/DL (0.70-1.30); GLOMERULAR FILTRATION RATE > 60.0 (>60); GLUCOSE, FASTING 88 MG/DL (70-100); POTASSIUM SERUM 3.9 MEQ/L (3.5-5.1); SODIUM LEVEL 141 MEQ/L (136-145)
[2020-03-13 21:08] VITALS: BP 137/90
== END 2020-03-13 21:09 | disposition home or self-care (01) ==
LOC: M ED 19:21
DX: E11.65 Type 2 diabetes mellitus with hyperglycemia (principal); G44.209 Tension-type headache, unspecified, not intractable; G40.909 Epilepsy, unspecified, not intractable, without status epilepticus; K21.9 Gastro-esophageal reflux disease without esophagitis; Z79.899 Other long term (current) drug therapy; Z79.84 Long term (current) use of oral hypoglycemic drugs; Z88.8 Allergy status to other drugs, medicaments and biological substances; F17.210 Nicotine dependence, cigarettes, uncomplicated

== ENCOUNTER 2020-08-06 12:43 | Emergency (ER) | payer MEDICARE, MEDICAID ==
[~2020-08-06] VITALS: Ht 165.1 cm; Wt 97.1 kg
[~2020-08-06 12:43] MED LIST changes: +METF-838 PO
[2020-08-06] MEDS ORDERED: ZYPR10TA PO (13:03)
[2020-08-06] MEDS ORDERED: ISOVUE-370 76% 100ML VIAL As Ordered ONE (14:11)
[2020-08-06 14:15] LABS: BASO # 0.1 10^3/uL (0.0-0.2); EOS # 0.3 10^3/uL (0.0-0.5); EOS % 2.5 % (0.0-3.0); HEMATOCRIT 49.7 % (42.0-52.0); HEMOGLOBIN 16.3 g/dl (13.5-17.5); LYMPH # 3.8 10^3/uL (1.5-5.0); LYMPH % 31.7 % (24.0-44.0); MEAN CORPUSCULAR HEMOGLOBIN 27.3 pg (27.0-33.0); MEAN CORPUSCULAR HGB CONC 32.8 g/dl (32.0-36.5); MEAN CORPUSCULAR VOLUME 83.2 fl (80.0-96.0); MONO # 1.1 10^3/uL (0.0-0.8); MONO % 9.2 % (0.0-5.0); NEUTROPHILS # 6.6 10^3/uL (1.5-8.5); NEUTROPHILS % 55.2 % (36.0-66.0); PLATELET COUNT, AUTOMATED 296 10^3/uL (150-450); RED BLOOD COUNT 5.97 10^6/uL (4.30-6.10)
[2020-08-06 14:38] LABS: ALBUMIN 3.4 GM/DL (3.2-5.2); ALT/SGPT 76 U/L (12-78); BILIRUBIN,TOTAL 0.3 MG/DL (0.2-1.0); BLOOD UREA NITROGEN 10 MG/DL (7-18); CALCIUM LEVEL 9.4 MG/DL (8.5-10.1); CARBON DIOXIDE LEVEL 29 MEQ/L (21-32); CHLORIDE LEVEL 104 MEQ/L (98-107); CREATININE FOR GFR 0.68 MG/DL (0.70-1.30); GLOMERULAR FILTRATION RATE > 60.0 (>60); GLUCOSE, FASTING 97 MG/DL (70-100); LIPASE 155 U/L (73-393); POTASSIUM SERUM 3.9 MEQ/L (3.5-5.1); SODIUM LEVEL 140 MEQ/L (136-145); TOTAL PROTEIN 7.2 GM/DL (6.4-8.2)
[2020-08-06] MEDS ORDERED: KETOROLAC 30 MG/ML 1ML VIAL IV ONE (14:45)
--- NOTE | 2020-08-06 14:56 | REPVR ---
PROCEDURE INFORMATION: Exam: CT Abdomen And Pelvis With Contrast Exam date and time: 08/06/2020 1:40 PM Age: 24 years old Clinical indication: Abdominal pain; Localized; Left lower quadrant (llq); Additional info: Llq pain TECHNIQUE: Imaging protocol: Computed tomography of the abdomen and pelvis with intravenous contrast. Radiation optimization: All CT scans at this facility use at least one of these dose optimization techniques: automated exposure control; mA and/or kV adjustment per patient size (includes targeted exams where dose is matched to clinical indication); or iterative reconstruction. Contrast material: ISOVUE 370; Contrast volume: 100 ml; Contrast route: INTRAVENOUS (IV); COMPARISON: ABD COMPLETE US 09/20/2017 8:07 AM FINDINGS: Lungs: The lung bases are unremarkable. Liver: There is a diffuse decrease in hepatic parenchymal density, consistent with fatty infiltration. Gallbladder and bile ducts: The gallbladder is unremarkable. Pancreas: The pancreas is normal. Spleen: The spleen is normal. Adrenals: The adrenal glands are unremarkable. Kidneys and ureters: The kidneys are unremarkable. Stomach and bowel: There is no evidence of intestinal obstruction. There are several mildly enlarged mesenteric lymph nodes up to 1.5 cm, medial aspect of the cecum and there is mild thickening of the cecal tip. The appendix is not identified although this could represent an appendiceal stump. There is no pericecal inflammation. Appendix: See "Stomach and bowel" finding. Intraperitoneal space: Unremarkable. No free air. No significant fluid collection. Vasculature: The aorta is unremarkable. Lymph nodes: As above. Urinary bladder: Unremarkable as visualized. Reproductive: Unremarkable as visualized. Bones/joints: Unremarkable. No acute fracture. Soft tissues: Unremarkable. IMPRESSION: Possible typhlitis with adjacent mesenteric lymphadenopathy. Other etiologies for cecal wall thickening are also within the differential and mesenteric lymphadenitis. No further acute abnormalities are identified. Electronically signed by: Joann Dhillon On 08/06/2020 14:56:16 PM
[2020-08-06 15:36] VITALS: BP 142/99
--- NOTE | 2020-08-07 10:57 | ED PDOC ---
Post-Departure Follow-Up roel wang faxed formal report of ct abd/p for fu Melissa Churchill MD Aug 07, 2020 10:57
== END 2020-08-06 15:38 | disposition home or self-care (01) ==
LOC: M ED 12:43
DX: I88.0 Nonspecific mesenteric lymphadenitis (principal); R10.9 Unspecified abdominal pain; F17.200 Nicotine dependence, unspecified, uncomplicated; Z88.8 Allergy status to other drugs, medicaments and biological substances
CPT/HCPCS: 74177; 80047; 80053; 83690; 85025; 96374; 99284; J1885; Q9967

== ENCOUNTER 2020-11-17 16:19 | Emergency (ER) | payer MEDICARE, MEDICAID ==
[~2020-11-17] VITALS: Ht 165.1 cm; Wt 107.0 kg
[~2020-11-17 16:19] MED LIST changes: +HYDR-3490; -HYDR25TAB; +ZYPR10TA PO
--- OUTSIDE RECORDS SUMMARY | 2020-11-17 17:06 | CCD ---
Author Author [facility] Organization [facility] Address Unknown Phone Unavailable Care Team Providers Care Skin Care Instructor Name Role Phone Nieves Pulido Unavailable PROBLEMS Type Condition ICD9-CM Code [id number] Code Onset Dates Condition S tatus SNOMED Code Notes Problem Marijuana use F12.90 Active 552920181 Problem Schizophrenia, unspecified type F20.9 Active 09191976 Problem Low HDL (under 40) E78.6 Active 643453285 Problem Sleep disturbance, unspecified G47.9 Active 5 5135994 Problem Body mass index (BMI) 32.0-32.9, adult Z68.32 A ctive 434830218 Problem Essential (primary) hypertension I10 Active 96012620 Problem Obesity, unspecified E66.9 Active 152251997 Problem GERD with esophagitis K21.0 Active 735240011 Problem Gastroesophageal reflux disease without esophagitis K21.9 Active 231476804 Problem Anxiety F41.9 Active 76729154 Problem Cigarette nicotine dependence without complication F17.210 Active 16167797 ALLERGIES Allergen (clinical drug ingredient) Drug/Non Drug Allergy do cumented on EMR Reaction Allergy Type Onset Date Status ondansetron Zofran(ND Code:[address]-50) Anaphylaxis Drug Allergy Active Wellbutrin Violence/Aggitation Drug Allergy Act faisal fluoxetine PROzac(ND Code:[address]-85) Hallucinations Drug Allergy Active ENCOUNTERS from 1993 to 2020-09-15 Encounter Location Date Provider Diagnosis [facility] GME Resident [address] [place] [address] 30 Jul, 2020 Nieves Pulido Left lower quadrant abdomina l pain R10.32 ; Sleep disturbance, unspecified G47.9 ; Schizophrenia, unspecified type F20.9 ; Prediabetes R73.03 ; Obesity, unspecified E66.9 ; Essential (primary) hypertens ion I10 ; Hidradenitis axillaris L73.2 and Encounter for preventive care Z00.00 IMMUNIZATIONS Vaccine Route Administration Date Status HPV9 0.5mL (Gardasil 9) IM Intramuscular February 20, 2020 Adminis tered Pneumococcal Adult 0.5mL (Pneumovax 23) IM Intramuscular January 292019 Administered SOCIAL HISTORY Tobacco Use: Social History Observation Description Date Details (start date - stop date) Current Smoker Sex Assigned At : Social History Observation Description Sex Assigned At Unknown Education: Question Answer Notes Level of Education: Finished High School Audit Question Answer Notes Total Score: 1 Interpretation: Alcohol Education Language: Question Answer Notes Languages spoken: Uzbek Episcopalian: Question Answer Notes [employer] Sexual Hx: Question Answer Notes Had sex in the last 12 months (vaginal, oral, or anal)? Yes with Women only Use protection? No Drug and Alcohol Question Answer Notes Total Score: 0 Interpretation: No problems reported Alcohol Screening: Question Answer Notes Did you have a drink containing alcohol in the past year? Ye s Points 1 Interpretation Negative How many drinks did you have on a typica l day when you were drinking in the past year? 1 or 2 (0 points) How often did you have a drink containing alcohol in t he past year? Monthly or less (1 point) Tobacco Use: Question Answer Notes Are you a: current smoker Patient counseled on the dangers of tobacco use and urged to quit: 09/16/2019 How many cigarettes a day do you smoke? 11- REASON FOR REFERRAL No Information VITAL SIGNS Weight 222.2 lbs Jul, Height 65.25 in Jul, BMI 36.69 kg/m2 Jul, Heart Rate 133 /min Jul, Respiratory Rate 18 /min Jul, Temperature 97.3 degrees Fahrenheit Jul, Oximetry 97 Jul, Blood pressure systolic 134 mm Hg Jul, Blood pressure diastolic 98 mm Hg Jul, MEDICATIONS Medication SIG (Take, Route, Frequency, Duration) Notes Start Da te End Date Status Depakote 250 MG 1 tab Orally Twice a day Active ProAir HFA 108 (90 Base) mcg/act 2 puffs as needed Inh alation qid prn for 90 day(s) Not-Taking MetFORMIN HCl ER 500 MG 1 tablet with evening meal O rally Once a day for 30 day(s) Jan, Not-Taking Clotrimazole-Betamethasone 1-0.05 % 1 application Externally Twi ce a day Apr, Active Losartan Potassium 25 mg TAKE 1 TABLET BY MOUTH EVERY DAY orally Agapito y Active Benadryl 25 MG 1 tablet Orally before bedtime for 30 Days Jul, Active Omeprazole 40 MG 1 capsule Orally Once a day for 30 Days Active Olanzapine 10 MG TAKE 1/2 TABLET BY MOUTH IN THE MORNING AND 1 TABLET IN THE EVENING Active Metformin HCl 500 MG 1 tablet with a meal Orally Once a day for 30 Not-Taking PROCEDURES No Information RESULTS No Results REASON FOR VISIT [facility] hospital follow up MEDICAL (GENERAL) HISTORY Type Description Date Medical History GERD Medical History Schizophrenia/schizoaffective Medical History Hypertension Medical History ODD Medical History Ganglion cyst of hand Medical History tobacco dependence Medical History Hidradenitits Surgical History Appendectomy Goals Section No Information Health Concerns No Information MEDICAL EQUIPMENT No Information MENTAL STATUS No Information FUNCTIONAL STATUS No Information ASSESSMENTS Encounter Date Diagnosis Assessment Notes Treatment Notes Treatm ent Clinical Notes Jul, Left lower quadrant abdominal pain (ICD-10 - R10 .32) CT ABD/PEL: FINDINGS: Lungs: The lung bases are unremarkable. Liver: There is a diffuse decrease in hepatic parenchymal density, consistent with fatty infiltration. Gallbladder and bile ducts: The gallbladder is unremarkable. Pancreas: The pancreas is normal. Spleen: The spleen is normal. Adrenals: The adrenal glands are unremarkable. Kidneys and ureters: The kidneys are unremarkable. Stomach and bowel: There is no evidence of intestinal obstruction. There are several mildly enlarged mesenteric lymph nodes up to 1.5 cm, medial aspect of the cecum and there is mild thickening of the cecal tip. The appendix is not identified although this could represent an appendiceal stump. There is no pericecal inflammation. Appendix: See "Stomach and bowel" finding. Intraperitoneal space: Unremarkable. No free air. No significant fluid collection. Vasculature: The aorta is unremarkable. Lymph nodes: As above. Urinary bladder: Unremarkable as visualized. Reproductive: Unremarkable as visualized. Bones/joints: Unr emarkable. No acute fracture. Soft tissues: Unremarkable. IMPRESSION: Possible typhlitis with adjacent mesenteric lymphadenopathy. Other etiologies for cecal wall thickening are also within the differential and mesenteric lymphadenitis. No further acute abnormalities are identified. Patient is asymptomatic at this time and exam is benign. He will let me know if his abdominal pain returns. He did state that he ate at a different restuarant the night before his presentation to the ED, and he ate food he does not normally eat. This may be from food poisoning although he did not have any diarrhea or nausea or vomiting. I am not concerned for any acute infection or typhlitis at this time as the patient is not showing signs that are worrisome. Jul, Sleep disturbance, unspecified (ICD-10 - G47.9) The patient reports he is having trouble falling asleep at night due to racing thoughts. I suspect this may be due to his schizophrenia versus stresses at home. I have advised him on some sleep hygiene measures, including shutting off all screens prior to bedtime, and creating a routine. For now I have offered him to start Benadryl 25 mg before bedtime to help him fall sleep. His STOPBANG questionaire is 3, putting him at high risk of JANINA. I asked if he be willing to undergo sleep study and possibly obtain a CPAP which he refused. I will try again at the next appointment. Jul, Schizophrenia, unspecified type (ICD-10 - F20.9) The patient stated he is having trouble finding a counselor or psychiatrist because "I was turned away as a smoke marijuana." I encouraged him to show up for drop in behavior health hours and gave him a flyer. For now I will continue his Depakote and Olanzapine. I stressed the importance of him finding a psychiatrist as he has several psychiatric issues that need to be addressed. Vision voiced understanding Jul, Prediabetes (ICD-10 - R73.03) Chuck's last hemoglobin A1c was found to be 6.0. I previously instructed him to start taking metformin but as stated in the HPI he refused to take it due to the GI side effects. I stressed to him the importance of weight loss as his obesity is concerning to his prediabetes. Jul, Obesity, unspecified (ICD-10 - E66.9) Likely secondary to poor diet and olanzapine use. I do not fill comfortable stopping his olanzapine at this time as a feel the benefits outweigh the risks of stopping it. Once he establishes with a psychiatrist he can explore any alternatives. He declined offer to refer him to dietitian. Jul, Essential (primary) hypertension (ICD-10 - I10) Patient's BP in office today slightly over goal at 134 systolic. Will continue Losartan for now. Jul, Hidradenitis axillaris (ICD-10 - L73.2) The patient has a history of hidradenitis axillary and intermittently requires betamethasone. He is not currenlty in a flare today. Jul, Encounter for preventive care (ICD-10 - Z00.00) Patient refused flu shot, has already received Gardasil, refused P13 PLAN OF TREATMENT Medication Medication Name Sig Start Date Stop Date Benadryl 25 MG 1 tablet Orally before bedtime for 30 Days 2019 Depakote 250 MG 1 tab Orally Twice a day Clotrimazole-Betamethasone 1-0.05 % 1 application Externally Twice a day Apr, Olanzapine 10 MG TAKE 1/2 TABLET BY MOUTH IN THE MORNING AND 1 TABLET IN THE EVENING Losartan Potassium 25 mg TAKE 1 TABLET BY MOUTH EVERY DAY orally Daily Treatment Notes Assessment Notes Clinical Notes Left lower quadrant abdominal pain CT AB D/PEL:FINDINGS: Lungs: The lung bases are unremarkable. Liver: There is a diffuse decrease in hepatic parenchymal density, consistent with fatty infiltration. Gallbladder and bile ducts: The gal lbladder is unremarkable. Pancreas: The pancreas is normal. Spleen: The spleen is normal. Adrenals: The adrenal glands are unremarkable. Kidneys and ureters: The kidneys are unremarkable. Stomach and bowel: There is no evidence of intestinal obstruction. There are several mildly enlarged mesenteric lymph nodes up to 1.5 cm, medial aspect of the cecum and there is mild thickening of the cecal tip. The appendix is not identified although this could represent an appendiceal stump. There is no pericecal inflammation. Appendix: See "Stomach and bowel" finding. Intraperitoneal space: Unremarkable. No free air. No significant fluid collection. Vasculature: The aorta is unremarkable. Lymph nodes: As above. Urinary bladder: Unremarkable as visualized. Reproductive: Unremarkable as visualized. Bones/joints: Unremarkable. No acute fracture. Soft tissues: Unremarkable.IMPRESSION: Possible typhlitis with adjacent mesenteric lymphadenopathy. Other etiologies for cecal wall thickening are also within the differential and mesenteric lymphadenitis. No further acute abnormalities are identified.Patient is asymptomatic at this time and exam is benign. He will let me know if his abdominal pain returns. He did state that he ate at a different restuarant the night before his presentation to the ED, and he ate food he does not normally eat. This may be from food poisoning although he did not have any diarrhea or nausea or vomiting. I am not concerned for any acute infection or typhlitis at this time as the patient is not showing signs that are worrisome. Sleep disturbance, unspecified The patie nt reports he is having trouble falling asleep at night due to racing thoughts. I suspect this may be due to his schizophrenia versus stresses at home. I have advised him on some sleep hygiene measures, including shutting off all screens prior to bedtime, and creating a routine. For now I have offered him to start Benadryl 25 mg before bedtime to help him fall sleep. His STOPBANG questionaire is 3, putting him at high risk of JANINA. I asked if he be willing to undergo sleep study and possibly obtain a CPAP which he refused. I will try again at the next appointment. Schizophrenia, unspecified type The nayeli ent stated he is having trouble finding a counselor or psychiatrist because "I was turned away as a smoke marijuana." I encouraged him to show up for drop in behavior health hours and gave him a flyer. For now I will continue his Depakote and Olanzapine. I stressed the importance of him finding a psychiatrist as he has several psychiatric issues that need to be addressed. Vision voiced understanding Prediabetes Chuck's last hemoglobi n A1c was found to be 6.0. I previously instructed him to start taking metformin but as stated in the HPI he refused to take it due to the GI side effects. I stressed to him the importance of weight loss as his obesity is concerning to his prediabetes. Obesity, unspecified Likely secondary to poor diet and olanzapine use. I do not fill comfortable stopping his olanzapine at this time as a feel the benefits outweigh the risks of stopping it. Once he establishes with a psychiatrist he can explore any alternatives. He declined offer to refer him to dietitian. Essential (primary) hypertension Patient 's BP in office today slightly over goal at 134 systolic. Will continue Losartan for now. Hidradenitis axillaris The patient has a history of hidradenitis axillary and intermittently requires betamethasone. He is not currenlty in a flare today. Encounter for preventive care Patient re fused flu shot, has already received Gardasil, refused P13 Next Appt Details 6 Months Reason:f/u chronic conditions Follow Up:6 Monthsf/u chronic conditions Insurance Providers Payer Name Payer Address Payer Phone Insured Name Patient Relati onship to Insured Coverage Start Date Coverage End Date MEDICAID [id number] [address] [facility] [id number] CHUCK MANCIA [facility] [address] [facility] [id number] CHUCK MANCIA self
--- OUTSIDE RECORDS SUMMARY | 2020-11-17 17:06 | CCD ---
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 Name Role Phone Marjorie BarrP Unavailable Unavailable NIR, H RACHNA OBSTETRICS SCRUB NURSE Unavailable Unavailable NIR, H RACHNA OBSTETRICS SCRUB NURSE Unavailable Unavailable NIR, H RACHNA OBSTETRICS SCRUB NURSE Unavailable Unavailable NIR, H RACHNA OBSTETRICS SCRUB NURSE Unavailable Unavailable NIR, H RACHNA OBSTETRICS SCRUB NURSE Unavailable Unavailable NIR, H RACHNA OBSTETRICS SCRUB NURSE Unavailable Unavailable NIR, H RACHNA OBSTETRICS SCRUB NURSE Unavailable Unavailable Barr, F Marjorie FARE ENFORCEMENT OFFICER-BC Unavailable Unavailable Barr, F Marjorie FARE ENFORCEMENT OFFICER-BC Unavailable Unavailable Barr, F Marjorie FARE ENFORCEMENT OFFICER-BC Unavailable Unavailable Barr, F Marjorie FARE ENFORCEMENT OFFICER-BC Unavailable Unavailable Barr, F Marjorie FARE ENFORCEMENT OFFICER-BC Unavailable Unavailable Barr, F Marjorie FARE ENFORCEMENT OFFICER-BC Unavailable Unavailable Barr, F Marjorie FARE ENFORCEMENT OFFICER-BC Unavailable Unavailable Barr, F Marjorie FARE ENFORCEMENT OFFICER-BC Unavailable Unavailable Barr, F Marjorie FARE ENFORCEMENT OFFICER-BC Unavailable Unavailable Barr, F Marjorie FARE ENFORCEMENT OFFICER-BC Unavailable Unavailable Barr, F Marjorie FARE ENFORCEMENT OFFICER-BC Unavailable Unavailable Barr, F Marjorie FARE ENFORCEMENT OFFICER-BC Unavailable Unavailable Barr, F Marjorie FARE ENFORCEMENT OFFICER-BC Unavailable Unavailable Brar, F Marjorie FARE ENFORCEMENT OFFICER-BC Unavailable Unavailable Barr, F Marjorie FARE ENFORCEMENT OFFICER-BC Unavailable Unavailable Barr, F Marjorie FARE ENFORCEMENT OFFICER-BC Unavailable Unavailable Barr, F Marjorie FARE ENFORCEMENT OFFICER-BC Unavailable Unavailable Barr, F Marjorie FARE ENFORCEMENT OFFICER-BC Unavailable Unavailable Barr, F Marjorie FARE ENFORCEMENT OFFICER-BC Unavailable Unavailable Barr, F Marjorie FARE ENFORCEMENT OFFICER-BC Unavailable Unavailable Barr, F Marjorie FARE ENFORCEMENT OFFICER-BC Unavailable Unavailable Barr, F Marjorie FARE ENFORCEMENT OFFICER-BC Unavailable Unavailable Tara Rajput Unavailable Re-disclosure Warning The records that you are about to access may contain information from federally-assisted alcohol or drug abuse programs. If such information is present, then the following federally mandated warning applies: This information has been disclosed to you from records protected by federal confidentiality rules (42 CFR part 2). The federal rules prohibit you from making any further disclosure of this information unless further disclosure is expressly permitted by the written consent of the person to whom it pertains or as otherwise permitted by 42 CFR part 2. A general authorization for the release of medical or other information is NOT sufficient for this purpose. The Federal rules restrict any use of the information to criminally investigate or prosecute any alcohol or drug abuse patient.The records that you are about to access may contain highly sensitive health information, the redisclosure of which is protected by Article 27-F of the [facility] Public Health law. If you continue you may have access to information: Regarding HIV / AIDS; Provided by facilities licensed or operated by the [facility] Office of Mental Health; or Provided by the [facility] Office for People With Developmental Disabilities. If such information is present, then the following [place] mandated warning applies: This information has been disclosed to you from confidential records which are protected by state law. State law prohibits you from making any further disclosure of this information without the specific written consent of the person to whom it pertains, or as otherwise permitted by law. Any unauthorized further disclosure in violation of state law may result in a fine or half-way sentence or both. A general authorization for the release of medical or other information is NOT sufficient authorization for further disc losure. Allergies and Adverse Reactions Type Description Substance Reaction Status Data Source(s ) Drug allergy PROzac Fluoxetine Hallucinations Active eCW1 ([facility]) Drug allergy Zofran Ondansetron Anaphylaxis Active eCW1 ([facility]) Wellbutrin Wellbutrin Wellbutrin Violence/Aggitation Active eCW1 ([facility]) Wellbutrin Wellbutrin Wellbutrin Violence/Aggitation Active eCW1 ([facility]) Wellbutrin Wellbutrin Wellbutrin Violence/Aggitation Active eCW1 ([facility]) Family History Family Member Name Family Member Gender Family Member Status Date o f Status Description Data Source(s) Unknown Unknown Problem MEDENT ([facility]) Unknown Male Problem MEDENT ([facility]) Unknown Male Problem MEDENT ([facility] ) Encounters Encounter Providers Location Date Indications Data Source(s ) [place] [address] [facility] [address] 11/06/2020 12:00:00 AM EST eCW1 ([facility]) Outpatient [address] [facility] [place] [address] 08/28/2020 12:00:00 AM EDT eCW1 ([facility]) Unknown [address] [facility] [place] [address] 08/18/2020 12:00:00 AM EDT eCW1 ([facility]) Unknown [address] [facility] [address] 08/10/2020 12:00:00 AM EDT eCW1 ([facility]) Outpatient Attender: ANA VARGAS 06/16/2020 12:02:24 AM EDT [facility] Outpatient Attender: Marjorie VARGAS 06/10/2020 01: 22:00 PM EDT [facility] [place] [address] [facility] [address] 05/18/2020 12:00:00 AM EDT eCW1 ([facility]) [place] [address] [facility] [address] 05/15/2020 12:00:00 AM EDT eCW1 ([facility]) Outpatient Attender: Marjorie DAMON FP 03/16/2020 02: 33:02 PM EDT [facility] [place] [address] [facility] [address] 03/16/2020 12:00:00 AM EDT eCW1 ([facility]) [facility] [place] [address] [facility] [address] 03/13/2020 12:00:00 AM EDT eCW1 ([facility]) [facility] [place] [address] [facility] [address] 02/20/2020 12:00:00 AM EDT eCW1 ([facility]) [facility] [place] [address] [facility] [address] 02/18/2020 12:00:00 AM EDT eCW1 ([facility]) [facility] [address] [place] [phone] 02/17/2020 12:00:00 AM EDT eCW1 ([facility]) [facility] GME Resident [address] [place] [phone] 02/07/2020 12:00:00 AM EDT eCW1 ([facility]) Outpatient Attender: ANA VARGAS 01/24/2020 08:02:09 PM EDT [facility] Resident [address] [place] [phone] 11/30/2019 12:00:00 AM EST eCW1 ([facility]) Outpatient Attender: Marjorie DAMON FP 11/29/2019 04: 53:02 PM EST [facility] [place] [address] [facility] [address] 11/13/2019 12:00:00 AM EST eCW1 ([facility]) Unknown [address] [facility] [address] 11/12/2019 12:00:00 AM EST eCW1 ([facility]) [facility] GME Resident [address] [place] [address] 11/12/2019 12:00:00 AM EST eCW1 ([facility]) [facility] [place] [address] [place] [phone] 11/11/2019 12:00:00 AM EST eCW1 ([facility]) [facility] GME Resident [address] [place] [phone] 11/11/2019 12:00:00 AM EST eCW1 ([facility]) [facility] [place] [address] [place] [address] 11/11/2019 12:00:00 AM EST eCW1 ([facility]) [facility] GME Resident [address] [place] [phone] 11/09/2019 12:00:00 AM EST eCW1 ([facility]) [facility] GME Resident [address] [place] [phone] 11/08/2019 12:00:00 AM EST eCW1 ([facility]) [facility] GME Resident [address] [place] [phone] 11/08/2019 12:00:00 AM EST eCW1 ([facility]) Outpatient Attender: ANA PEREZ FP 10/28/2019 03:50:00 PM EST [facility] Outpatient Attender: Marjorie DAMON FP 10/28/2019 03: 49:02 PM EST [facility] Outpatient Attender: RACHNA LOYOLA NP [facility] kristy 10/28/2019 02:30:00 AM EST - 10/28/2019 02:30:00 AM EST [facility] ([facility]) Attender: RACHNA LOYOLA NP 10/28/2019 12:00:00 AM EST [facility] ([facility]) [facility] [address] [place] [address] 10/19/2019 12:00:00 AM EST eCW1 ([facility]) [facility] GME Resident [address] [place] [phone] 10/17/2019 12:00:00 AM EST eCW1 ([facility]) [facility] [place] [address] [facility] [address] 10/17/2019 12:00:00 AM EST eCW1 ([facility]) Health Monitoring - 30 Min Attender: Tara Rajput [facility] alicia May 10/01/2019 02:00:00 AM EST - 10/01/2019 02:00:00 AM EST [facility] ([facility]) Attender: Tara Rajput 10/01/2019 12:00:00 AM EST [facility] ([facility]) Outpatient Attender: RACHNA LOYOLA NP [facility] kristy 09/24/2019 03:30:00 AM EST - 09/24/2019 03:30:00 AM EST [facility] ([facility]) Attender: RACHNA LOYOLA NP 09/24/2019 12:00:00 AM EST [facility] ([facility]) Functional Status Immunizations Vaccine Date Status Description Data Source(s) pneumococcal polysaccharide PPV23 02/20/2020 04:22:00 PM EDT comple vladimir eCW1 ([facility]) pneumococcal polysaccharide PPV23 02/20/2020 04:22:00 PM EDT comple vladimir eCW1 ([facility]) pneumococcal polysaccharide PPV23 02/20/2020 04:22:00 PM EDT comple vladimir eCW1 ([facility]) pneumococcal polysaccharide PPV23 02/20/2020 04:22:00 PM EDT comple vladimir eCW1 ([facility]) pneumococcal polysaccharide PPV23 02/20/2020 04:22:00 PM EDT comple vladimir eCW1 ([facility]) pneumococcal polysaccharide PPV23 02/20/2020 04:22:00 PM EDT comple vladimir eCW1 ([facility]) pneumococcal polysaccharide PPV23 02/20/2020 04:22:00 PM EDT comple vladimir eCW1 ([facility]) HPV9 02/20/2020 04:21:00 PM EDT completed e CW1 ([facility]) HPV9 02/20/2020 04:21:00 PM EDT completed e CW1 ([facility]) HPV9 02/20/2020 04:21:00 PM EDT completed e CW1 ([facility]) HPV9 02/20/2020 04:21:00 PM EDT completed e CW1 ([facility]) HPV9 02/20/2020 04:21:00 PM EDT completed e CW1 ([facility]) HPV9 02/20/2020 04:21:00 PM EDT completed e CW1 ([facility]) HPV9 02/20/2020 04:21:00 PM EDT completed e CW1 ([facility]) Medications Medication Brand Name Start Date Product Form Dose Route Admi nistrative Instructions Pharmacy Instructions Status Indications Reaction Description Data Source(s) Diphenhydramine Hydrochloride 25 MG Oral Tablet [Benad ryl] Benadryl 25 MG Benadryl 25 MG 08/28/2020 12:00:00 AM EDT 1.0 {tablet} active Benadryl 25 MG eCW1 ([facility]) Diphenhydramine Hydrochloride 25 MG Oral Tablet [Benad ryl] Benadryl 25 MG Benadryl 25 MG 08/28/2020 12:00:00 AM EDT 1.0 {tablet} active Benadryl 25 MG eCW1 ([facility]) Betamethasone 0.5 MG/ML / Clotrimazole 1 0 MG/ML Topical Cream Clotrimazole- Betamethasone 1-0.05 % Clotrimazole-Betamethasone 1-0.05 % 05/19/2020 12:00:0 0 AM EDT 1.0 {application} active Clotri mazole-Betamethasone 1-0.05 % eCW1 ([facility]) Betamethasone 0.5 MG/ML / Clotrimazole 1 0 MG/ML Topical Cream Clotrimazole- Betamethasone 1-0.05 % Clotrimazole-Betamethasone 1-0.05 % 05/19/2020 12:00:0 0 AM EDT 1.0 {application} active Clotri mazole-Betamethasone 1-0.05 % eCW1 ([facility]) Betamethasone 0.5 MG/ML / Clotrimazole 1 0 MG/ML Topical Cream Clotrimazole- Betamethasone 1-0.05 % Clotrimazole-Betamethasone 1-0.05 % 05/19/2020 12:00:0 0 AM EDT 1.0 {application} active Clotri mazole-Betamethasone 1-0.05 % eCW1 ([facility]) Betamethasone 0.5 MG/ML / Clotrimazole 1 0 MG/ML Topical Cream Clotrimazole- Betamethasone 1-0.05 % Clotrimazole-Betamethasone 1-0.05 % 05/19/2020 12:00:0 0 AM EDT 1.0 {application} active Clotri mazole-Betamethasone 1-0.05 % eCW1 ([facility]) Betamethasone 0.5 MG/ML / Clotrimazole 1 0 MG/ML Topical Cream Clotrimazole- Betamethasone 1-0.05 % Clotrimazole-Betamethasone 1-0.05 % 05/19/2020 12:00:0 0 AM EDT 1.0 {application} active Clotri mazole-Betamethasone 1-0.05 % eCW1 ([facility]) MetFORMIN HCl ER 500 MG MetFORMIN HCl ER 500 MG 02/07/2020 12:00:00 AM EDT 1.0 {tablet_with_evening_meal} active MetF ORMIN HCl ER 500 MG eCW1 ([facility]) 24 HR Metformin hydrochloride 500 MG Ext ended Release Oral Tablet MetFORMIN HCl ER 500 MG MetFORMIN HCl ER 500 MG 02/07/2020 12:00:00 AM EDT 1.0 {tablet_with_evening_meal} suspended Met FORMIN HCl ER 500 MG eCW1 ([facility]) MetFORMIN HCl ER 500 MG MetFORMIN HCl ER 500 MG 02/07/2020 12:00:00 AM EDT 1.0 {tablet_with_evening_meal} active MetF ORMIN HCl ER 500 MG eCW1 ([facility]) MetFORMIN HCl ER 500 MG MetFORMIN HCl ER 500 MG 02/07/2020 12:00:00 A M EDT active 1 tablet with evenin g meal eCW1 ([facility]) MetFORMIN HCl ER 500 MG MetFORMIN HCl ER 500 MG 02/07/2020 12:00:00 AM EDT 1.0 {tablet_with_evening_meal} active MetF ORMIN HCl ER 500 MG eCW1 ([facility]) MetFORMIN HCl ER 500 MG MetFORMIN HCl ER 500 MG 02/07/2020 12:00:00 AM EDT 1.0 {tablet_with_evening_meal} active MetF ORMIN HCl ER 500 MG eCW1 ([facility]) 24 HR Metformin hydrochloride 500 MG Ext ended Release Oral Tablet MetFORMIN HCl ER 500 MG MetFORMIN HCl ER 500 MG 02/07/2020 12:00:00 AM EDT 1.0 {tablet_with_evening_meal} suspended Met FORMIN HCl ER 500 MG eCW1 ([facility]) Metformin hydrochloride 500 MG Oral Tablet Metformin H Cl 500 MG Metformin HCl 500 MG 11/09/2019 12:00:00 AM EST active 1 tablet with a meal eCW1 ([facility]) Metformin hydrochloride 500 MG Oral Tablet Metformin H Cl 500 MG Metformin HCl 500 MG 11/09/2019 12:00:00 AM EST active 1 tablet with a meal eCW1 ([facility]) Insurance Providers Payer name Policy type / Coverage type Policy ID Covered democrat ID Covered democrat's relationship to balderas Policy Balderas Plan Information NAILA [id number] SP [id number] [facility] [id number] SP [id number] [facility] [id number] SP [id number] [facility](MCAID) O [id number] S [id number] MEDICAID M [id number] [facility] Secure Horizons P [id number] S [id number] Medicare Wrap S [id number] S [id number] [facility] MEDICARE DUAL G [id number] Self [id number] MEDICAID M [id number] Self [id number] MEDICAID [id number] SP [id number] MEDICARE [id number] SP [id number] [facility] COMMUNITY PLAN MCDHMO [id number] SP [id number] [facility] HMO [id number] SP [id number] [facility] Secure Horizons P [id number] S [id number] UN COMMUNITY PLAN MCDHMO [id number] SP [id number] Medicare S [id number] S [id number] UN CP DUAL COMP CO [id number] 18 [id number] [facility] COMMUNTY PLAN [id number] 18 [id number] [facility] COMMUNITY PLAN XIX [id number] 18 [id number] MEDICAID [id number] [facility] MEDICARE COMPLETE -PHYS [id number] 18 [id number] [facility] MEDICARE COMPLETE - O/P [id number] 18 [id number] MEDICAID -O/P EMERGENCY ROOM [id number] 18 [id number] MEDICAID -PHYSICIAN [id number] [facility] CP DUAL COMP -PHYSICIAN [id number] 18 [id number] [facility] CP DUAL COMP - FACILITY [id number] 18 [id number] [facility] COMMUNITY PLAN [place] [id number] 18 [id number] [facility] COMMUNITY PLAN XIX [id number] 18 [id number] MEDICAID [id number] Managed Care - [facility] O [id number] S [id number] [place] Medig[place] Part B [id number] Self [id number] Dual Complete Commercial [id number] Self [id number] [place]ig[place] Part B [id number] Self [id number] Dual Complete Commercial [id number] Self [id number] [facility] Comm Plan Medicare F [id number] SELF [id number] Medicare C [id number] SELF [id number] [place] Medicaid F [id number] SELF [id number] [facility] Comm Plan Medicaid F [id number] SELF [id number] [facility] Comm Plan Medicaid F [id number] SELF [id number] [facility] Communty Plan Medicaid [id number] Self [id number] MEDICAID [id number] [facility] Communty Plan Medicaid [id number] Self [id number] [facility] Communty Plan Medicaid [id number] Self [id number] [facility] COMMUNTY PLAN [id number] 18 [id number] MEDICARE PART A [facility] [id number] 18 [id number] SECURE HORIZONS [facility] MEDICARE O/P [id number] 18 [id number] MEDICAID -O/P [id number] 18 [id number] [facility] Secure Horizons P [id number] S [id number] BLUE CROSS BLUE [facility] MCR -OP [id number] 18 [id number] MEDICARE [id number] SP [id number] ANSI-Medicaid [id number] ANSI-Medicare Part B [id number] [place] Medig[place] Part B [id number] Self [id number] [facility] ([facility]) Commercial [id number] Self [id number] [place] [id number] Self [id number] [facility] ([facility]) Commercial [id number] Self [id number] [place] [id number] Self [id number] [facility] ([facility]) Commercial [id number] Self [id number] [place] Medig[place] Part [place] [id number] Self [id number] [facility] ([facility]) Commercial [id number] Self [id number] Medicare Wrap S [id number] S [id number] MEDICARE [id number] SP [id number] [facility] MEDICARE DUAL G [id number] Self [id number] [facility] DUAL COMPLETE O [id number] S [id number] [facility](MCAID) O [id number] S [id number] [employer] COMMUNITY PLAN XIX [id number] 18 [id number] [facility] Communty Plan Medicaid [id number] Self [id number] Medicaid Commercial [id number] Self [id number] Medicare Part A [place] Primary [id number] Self [id number] Managed Care - [facility] P [id number] S [id number] [place] Medig[place] Part B [id number] Self [id number] [facility] ([facility]) Commercial [id number] Self [id number] MEDICAID [id number] SP [id number] MEDICARE C [id number] S [id number] Problems, Conditions, and Diagnoses Code Display Name Description Problem Type Effective Dates Data Source(s) I10 01494692 Essential (primary) hypertension Problem 09/14/2020 12:00:00 AM EST eCW1 ([facility]) G47.9 99349612 Sleep disturbance, unspecified Problem 08/28/2020 12:00:00 AM EDT eCW1 ([facility]) E78.6 989900125 Low HDL (under 40) Problem 11/15/2019 12:00: 00 AM EST eCW1 ([facility]) E78.6 662233543 Low HDL (under 40) Problem 11/15/2019 12:00: 00 AM EST eCW1 ([facility]) K21.9 006638793 Gastroesophageal reflux disease without e sophagitis Problem 11/07/2019 12:00:00 AM EST eCW1 ([facility]) K21.0 772857112 GERD with esophagitis Problem 11/07/2019 12: 00:00 AM EST eCW1 ([facility]) K21.9 043515099 Gastroesophageal reflux disease without e sophagitis Problem 11/07/2019 12:00:00 AM EST eCW1 ([facility]) K21.0 084142410 GERD with esophagitis Problem 11/07/2019 12: 00:00 AM EST eCW1 ([facility]) F43.12 Post-traumatic stress disorder, chronic Post-traumatic stress disorder, chronic Condition 10/28/2019 12:00:00 AM EST [facility] ([facility]) F20.89 Other schizophrenia Other schizophrenia Condition 1 12:00:00 AM EST [facility] ([facility]) F12.20 Cannabis dependence, uncomplicated Cannabis Use Disorder, Moderate Condition 10/28/2019 12:00:00 AM EST [facility] ([facility]) F32.9 Major depressive disorder, single episod e, unspecified Unspecified depressive Disorder Condition 10/28/2019 12:00:00 AM EST [facility] ([facility]) F17.210 93697699 Cigarette nicotine dependence without com plication Problem 10/18/2019 12:00:00 AM EST eCW1 ([facility]) F41.9 65992104 Anxiety Problem 10/18/2019 12:00:00 AM ES T eCW1 ([facility]) I10 85051028 Essential hypertension Problem 10/18/2019 12 :00:00 AM EST eCW1 ([facility]) F17.210 76088252 Cigarette nicotine dependence without com plication Problem 10/18/2019 12:00:00 AM EST eCW1 ([facility]) F41.9 88666137 Anxiety Problem 10/18/2019 12:00:00 AM ES T eCW1 ([facility]) I10 30667127 Essential hypertension Problem 10/18/2019 12 :00:00 AM EST eCW1 ([facility]) F12.90 077899910 Marijuana use Problem 09/27/2019 12:00:00 AM EST eCW1 ([facility]) F12.90 181889157 Marijuana use Problem 09/27/2019 12:00:00 AM EST eCW1 ([facility]) Surgeries/Procedures Procedure Description Date Indications Data Source(s) HPV9 0.5mL (Gardasil 9) 02/20/2020 12:00:00 AM EDT eCW1 ([facility]) Pneumococcal Adult 0.5mL (Pneumovax 23) 02/20/2020 12: 00:00 AM EDT eCW1 ([facility]) IMMUNIZATION ADMIN 02/20/2020 12:00:00 AM EDT eCW1 ([facility]) HPV9 (VFC) 0.5mL (Gardasil 9) 02/07/2020 12:00:00 AM E DT eCW1 ([facility]) VFC Administration Charge 02/07/2020 12:00:00 AM EDT eCW1 ([facility]) Injection: Tuberculin Purified Protein 0.1mL Intradermal (PP D) 11/13/2019 12:00:00 AM EST eCW1 ([facility]) TB Intradermal Test 11/08/2019 12:00:00 AM EST eCW1 ([facility]) OFFICE OUTPATIENT VISIT 15 MINUTES 10/28 12:00:00 AM EST - 10/28/2019 12:00:00 AM EST [facility] ([facility]) OFFICE OUTPATIENT VISIT 15 MINUTES 10/28/2019 12:00:00 AM EST [facility] ([facility]) Office Visit, Est Pt., Level 2 FC 10/17/2019 12:00:00 AM EST eCW1 ([facility]) PREVENT MED TOP INVENTORY CONTROL EXECUTIVE&/RISK FACTOR REDJ SPX 30 MIN 10/01/2019 12:00:00 AM EST - 10/01/2019 12:00:00 AM EST [facility] ([facility]) PREVENT MED TOP INVENTORY CONTROL EXECUTIVE&/RISK FACTOR REDJ SPX 30 MIN 10/01 12:00:00 AM EST [facility] ([facility]) OFFICE OUTPATIENT VISIT 15 MINUTES 09/24 12:00:00 AM EST - 09/24/2019 12:00:00 AM EST [facility] ([facility]) OFFICE OUTPATIENT VISIT 15 MINUTES 09/24/2019 12:00:00 AM EST [facility] ([facility]) Results ID Date Data Source LIPID PANEL (CARDIAC RISK) 11/01/2019 12:00:00 AM EST eCW1 ( [facility]) Name Value Range Interpretation Code Description Data Avis rce(s) Supporting Document(s) Triglyceride [Mass/volume] in Serum or Plasma by calculation 367 <150 TRIGLYCERIDES LEVEL eCW1 ([facility]) Cholesterol in LDL [Mass/volume] in Serum or Plasma by calculation 43 <100 LDL CHOLESTEROL eCW1 ([facility]) Cholesterol in HDL [Moles/volume] in Serum or Plasma 24 >40 HDL CHOLESTEROL eCW1 ([facility]) 5.833 <5 CHOLESTEROL RISK RATIO eCW1 ([facility]) 116 NON-HDL-C eCW1 ([facility]) Cholesterol [Moles/volume] in Serum or Plasma 140 <200 CHOLESTEROL LEVEL eCW1 ([facility]) ID Date Data Source [id number] 11/01/2019 12:00:00 AM EST eCW1 ([facility]) Name Value Range Interpretation Code Description Data Avis rce(s) Supporting Document(s) Hemoglobin A1c/Hemoglobin.total in Blood 5.6 HEMOGLOBIN A1c eCW1 ([facility]) ID Date Data Source CBC with Differential 11/01/2019 12:00:00 AM EST eCW1 ([facility]) Name Value Range Interpretation Code Description Data Avis rce(s) Supporting Document(s) 10.9 4.0-10.0 WHITE BLOOD COUNT eCW1 ([facility]) 16.0 13.5-17.5 HEMOGLOBIN eCW1 (Count includes the [facility]) 50.6 42.0-52.0 HEMATOCRIT eCW1 (Count includes the [facility]) 5.93 4.30-6.10 RED BLOOD COUNT eCW1 ([facility]) 31.6 32.0-36.5 MEAN CORPUSCULAR HGB CONC eCW1 ([facility]) 13.4 11.5-14.5 RED CELL DISTRIBUTION WID TH eCW1 ([facility]) 320 150-450 PLATELET COUNT, AUTOMATED eCW1 ([facility]) 85.3 80.0-96.0 MEAN CORPUSCULAR VOLUME e CW1 ([facility]) 27.0 27.0-33.0 MEAN CORPUSCULAR HEMOGLOB IN eCW1 ([facility]) Procedure Social History Code Duration Value Status Description Data Source(s ) Smoking 09/14/2020 12:00:00 AM EST Current Smoker completed Curre nt Smoker eCW1 ([facility]) Smoking 09/14/2020 12:00:00 AM EST Current Smoker completed Curre nt Smoker eCW1 ([facility]) Smoking 02/17/2020 12:00:00 AM EDT Current Smoker completed Curre nt Smoker eCW1 ([facility]) Smoking 02/17/2020 12:00:00 AM EDT Current Smoker completed Curre nt Smoker eCW1 ([facility]) Smoking 02/17/2020 12:00:00 AM EDT Current Smoker completed Curre nt Smoker eCW1 ([facility]) Smoking 02/17/2020 12:00:00 AM EDT Current Smoker completed Curre nt Smoker eCW1 ([facility]) Smoking 10/28/2019 12:00:00 AM EST Unknown if ever smoked comp leted Unknown if ever smoked [facility] ([facility]) Smoking 10/01/2019 12:00:00 AM EST Unknown if ever smoked comp leted Unknown if ever smoked [facility] ([facility]) Smoking 09/24/2019 12:00:00 AM EST Unknown if ever smoked comp leted Unknown if ever smoked [facility] ([facility]) Vital Signs ID Date Data Source UNK Name Value Range Interpretation Code Description Data Source(s) Diastolic blood pressure 98 mm[Hg] 98 mm[Hg] eCW1 ([facility]) Systolic blood pressure 134 mm[Hg] 134 mm[Hg] e CW1 ([facility]) Body temperature 97.3 [degF] 97.3 [degF] eCW1 ( [facility]) Respiratory rate 18 /min 18 /min eCW1 ([facility] 1928[facility]1983) Heart rate 133 /min 133 /min eCW1 ([facility]) Body mass index (BMI) [Ratio] 36.69 kg/m2 36.69 kg/m2 eCW1 ([facility]) Body height 65.25 [in_i] 65.25 [in_i] eCW1 ([facility]) Body weight 222.2 [lb_av] 222.2 [lb_av] eCW1 ([facility]) Diastolic blood pressure 70 mm[Hg] 70 mm[Hg] eCW1 ([facility]) Systolic blood pressure 120 mm[Hg] 120 mm[Hg] e CW1 ([facility]) Body temperature 98.4 [degF] 98.4 [degF] eCW1 ( [facility]) Respiratory rate 20 /min 20 /min eCW1 ([facility], 1928[facility]) Heart rate 88 /min 88 /min eCW1 ([facility]) Body mass index (BMI) [Ratio] 34.01 kg/m2 34.01 kg/m2 eCW1 ([facility]) Body height 65.25 [in_us] 65.25 [in_us] eCW1 ([facility]) Body weight Measured 206 [lb_av] 206 [lb_av] eC W1 ([facility]) Diastolic blood pressure 78 mm[Hg] 78 mm[Hg] eCW1 ([facility]) Systolic blood pressure 132 mm[Hg] 132 mm[Hg] e CW1 ([facility]) Body temperature 99.1 [degF] 99.1 [degF] eCW1 ( [facility]) Respiratory rate 18 /min 18 /min eCW1 ([facility], 1928[facility]) Heart rate 127 /min 127 /min eCW1 ([facility]) Body mass index (BMI) [Ratio] 30.71 kg/m2 30.71 kg/m2 eCW1 ([facility]) Body height 65.25 [in_us] 65.25 [in_us] eCW1 ([facility]) Body weight Measured 186 [lb_av] 186 [lb_av] eC W1 ([facility]) Diastolic blood pressure 60 mm[Hg] 60 mm[Hg] eCW1 ([facility]) Systolic blood pressure 110 mm[Hg] 110 mm[Hg] e CW1 ([facility]) Body temperature 98.8 [degF] 98.8 [degF] eCW1 ( [facility]) Respiratory rate 20 /min 20 /min eCW1 ([facility] 1928[facility]) Heart rate 88 /min 88 /min eCW1 ([facility]) Body mass index (BMI) [Ratio] 31.04 kg/m2 31.04 kg/m2 eCW1 ([facility]) Body height 65.25 [in_us] 65.25 [in_us] eCW1 ([facility]) Body weight Measured 188 [lb_av] 188 [lb_av] eC W1 ([facility]) Respiratory rate 16 min Normal (applies to non-numeric results) 16 min [facility] ([facility]) Body height --lying 102 min Normal (applies to non-nume tyra results) 102 min [facility] ([facility]) Diastolic blood pressure 88 mm[Hg] Normal (applies to non-numeric results) 88 mm[Hg] [facility] ([facility]) Systolic blood pressure 126 mm[Hg] Normal (applies t o non-numeric results) 126 mm[Hg] [facility] ([facility]) Body mass index (BMI) [Ratio] 31.45 kg/m2 No rmal (applies to non-numeric results) 31.45 kg/m2 [facility] ([facility]) Body weight Measured 189.00 lbs Normal (applies to n on-numeric results) 189.00 lbs [facility] ([facility]) Body height 65.00 in Normal (applies to non-numeric resu lts) 65.00 in [facility] ([facility]) Patient Treatment Plan of Care Planned Activity Planned Date Details Description Data Source (s) Diphenhydramine Hydrochloride 25 MG Oral Tablet [Benad ryl] 08/28/2020 12:00:00 AM EDT eCW1 ([facility]) Diphenhydramine Hydrochloride 25 MG Oral Tablet [Benad ryl] 08/28/2020 12:00:00 AM EDT eCW1 ([facility]) Betamethasone 0.5 MG/ML / Clotrimazole 10 MG/ML Topica l Cream 05/19/2020 12:00:00 AM EDT eCW1 ([facility]) Betamethasone 0.5 MG/ML / Clotrimazole 10 MG/ML Topica l Cream 05/19/2020 12:00:00 AM EDT eCW1 ([facility]) Betamethasone 0.5 MG/ML / Clotrimazole 10 MG/ML Topica l Cream 05/19/2020 12:00:00 AM EDT eCW1 ([facility]) Betamethasone 0.5 MG/ML / Clotrimazole 10 MG/ML Topica l Cream 05/19/2020 12:00:00 AM EDT eCW1 ([facility]) Betamethasone 0.5 MG/ML / Clotrimazole 10 MG/ML Topica l Cream 05/19/2020 12:00:00 AM EDT eCW1 ([facility]) MetFORMIN HCl ER 500 MG 02/07/2020 12:00:00 AM EDT eCW1 ([facility]) MetFORMIN HCl ER 500 MG 02/07/2020 12:00:00 AM EDT eCW1 ([facility]) MetFORMIN HCl ER 500 MG 02/07/2020 12:00:00 AM EDT eCW1 ([facility]) MetFORMIN HCl ER 500 MG 02/07/2020 12:00:00 AM EDT eCW1 ([facility]) MetFORMIN HCl ER 500 MG 02/07/2020 12:00:00 AM EDT eCW1 ([facility]) Metformin hydrochloride 500 MG Oral Tablet 11/09/2019 12:00:[address] eCW1 ([facility]) Metformin hydrochloride 500 MG Oral Tablet 11/09/2019 12:00:[address] eCW1 ([facility])
--- OUTSIDE RECORDS SUMMARY | 2020-11-17 17:06 | CCD ---
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 Role Phone Nieves Pulido Unavailable PROBLEMS Type Condition ICD9-CM Code [id number] Code Onset Dates Condition S tatus SNOMED Code Notes Problem Marijuana use F12.90 Active 334852042 Problem Schizophrenia, unspecified type F20.9 Active 73597455 Problem Low HDL (under 40) E78.6 Active 053227069 Problem Sleep disturbance, unspecified G47.9 Active 5 2871187 Problem Body mass index (BMI) 32.0-32.9, adult Z68.32 A ctive 757765650 Problem Essential (primary) hypertension I10 Active 50528543 Problem Obesity, unspecified E66.9 Active 312845278 Problem GERD with esophagitis K21.0 Active 457419404 Problem Gastroesophageal reflux disease without esophagitis K21.9 Active 919153539 Problem Anxiety F41.9 Active 32144240 Problem Cigarette nicotine dependence without complication F17.210 Active 24910026 ALLERGIES Allergen (clinical drug ingredient) Drug/Non Drug Allergy do cumented on EMR Reaction Allergy Type Onset Date Status ondansetron Zofran(ND Code:[address]-31) Anaphylaxis Drug Allergy Active Wellbutrin Violence/Aggitation Drug Allergy Act faisal fluoxetine PROzac(ND Code:[address]-76) Hallucinations Drug Allergy Active ENCOUNTERS from 1993 to 2020-11-07 Encounter Location Date Provider Diagnosis [facility] Resident [address] [place] [address] Oct, Nieves Pulido GERD with esophagitis K21.0 IMMUNIZATIONS Vaccine Route Administration Date Status HPV9 [...] Education Language: Question Answer Notes Languages spoken: Romanian Spiritism: Question Answer Notes Spiritism 08 Scientology Sexual Hx: Question Answer Notes Had sex [...] many cigarettes a day do you smoke? 11-20 REASON FOR REFERRAL No Information VITAL SIGNS No information MEDICATIONS Medication SIG (Take, Route, Frequency, Duration) [...] 1 capsule Orally Once a day for 90 day(s) Active Olanzapine 10 MG TAKE 1/2 TABLET BY MOUTH IN THE MORNING AND 1 TABLET IN THE EVENING Active Metformin HCl 500 MG 1 tablet with a meal Orally Once a day for 30 Not-Taking PROCEDURES No Information RESULTS No Results REASON FOR VISIT refill MEDICAL (GENERAL) HISTORY Type Description Date Medical [...] Notes Treatment Notes Treatm ent Clinical Notes Oct, GERD with esophagitis (ICD-10 - K21.0) PLAN OF TREATMENT Medication Medication Name Sig Start Date Stop Date Depakote 250 MG 1 tab Orally Twice a day Omeprazole 40 MG 1 capsule Orally Once a day for 90 day(s) Olanzapine 10 MG TAKE 1/2 TABLET BY MOUTH IN THE MORNING AND 1 TABLET IN THE EVENING Benadryl 25 MG 1 tablet Orally before bedtime for 30 Days 30 Oc 2019 Losartan Potassium 25 mg TAKE 1 TABLET BY MOUTH EVERY DAY orally Daily Clotrimazole-Betamethasone 1-0.05 % 1 application Externally Twice a day Apr, Next Appt Details Provider Name:Nieves Pulido, 2020-12-04 03:00:00 PM, [address] [facility], [place], [place], [id number], Insurance Providers Payer Name Payer Address Payer Phone Insured Name Patient Relati onship to Insured Coverage Start Date Coverage End Date [facility] [address] [facility] [id number] HAILEE MANCIA MEDICAID [facility] [address] [facility] [id number] HAILEE MANCIA self
--- OUTSIDE RECORDS SUMMARY | 2020-11-17 17:06 | CCD ---
Author Author [facility] Organization 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 Role Phone Nieves Pulido Unavailable PROBLEMS Type Condition ICD9-CM Code YQS55-KT Code Onset Dates Condition S tatus SNOMED Code Notes Problem Obesity, unspecified E66.9 Active 946393653 Problem Marijuana use F12.90 Active 501074464 Problem Schizophrenia, unspecified type F20.9 Active 65938119 Problem Essential hypertension I10 Active 20956804 Problem Body mass index (BMI) 32.0-32.9, adult Z68.32 A ctive 861262960 Problem Anxiety F41.9 Active 05226631 Problem GERD with esophagitis K21.0 Active 332556808 Problem Gastroesophageal reflux disease without esophagitis K21.9 Active 119229680 Problem Low HDL (under 40) E78.6 Active 027266197 Problem Cigarette nicotine dependence without complication F17.210 Active 91097133 ALLERGIES Allergen (clinical drug ingredient) Drug/Non Drug Allergy do cumented on EMR Reaction Allergy Type Onset Date Status ondansetron Zofran(ND Code:[address]-69) Anaphylaxis Drug Allergy Active Wellbutrin Violence/Aggitation Drug Allergy Act faisal fluoxetine PROzac(ND Code:[address]-53) Hallucinations Drug Allergy Active ENCOUNTERS from 1993 to 2020-08-19 Encounter Location Date Provider Diagnosis [facility] Res[place] [address] [place] [address] Jul, Nieves Pulido IMMUNIZATIONS Vaccine Route Administration Date Status HPV9 [...] Education Language: Question Answer Notes Languages spoken: Romansh Scientology: Question Answer Notes Scientology 08 [employer] Sexual Hx: Question Answer Notes Had sex in the last 12 months (vaginal, oral, or anal)? Yes with Women only Use protection? No Drug and Alcohol Question Answer Notes Total Score: 0 Interpretation: No problems reported Tobacco Use: Question Answer Notes Are you a: current smoker Patient counseled on the dangers of tobacco use and urged to quit: 09/16/2019 How many cigarettes a day do you smoke? - REASON FOR REFERRAL No Information VITAL SIGNS No information MEDICATIONS Medication SIG (Take, Route, Frequency, Duration) Start Date En d Date Status Metformin HCl 500 MG 1 tablet with a meal Orally Once a day for 30 Not-Taking Losartan Potassium 25 mg TAKE 1 TABLET BY MOUTH EVERY DAY orally Daily for 90 days Active ProAir HFA 108 (90 Base) mcg/act 2 puffs as needed Inh alation qid prn for 90 day(s) Active Divalproex Sodium 250 MG TAKE 1 TABLET BY MOUTH TWICE DAILY orally bid for 90 days Active Olanzapine 10 MG 1/2 tab in the am and 1 tab in the pm Orally bi d for 30 Days Active MetFORMIN HCl ER 500 MG 1 tablet with evening meal O rally Once a day for 30 day(s) Jan, Active Clotrimazole-Betamethasone 1-0.05 % 1 application Exte rnally Twice a day for 30 Days Apr, Active Omeprazole 40 MG 1 capsule Orally Once a day for 30 Days Active Depakote 250 MG 1 tab Orally Twice a day for 30 days Active PROCEDURES No Information RESULTS No Results REASON FOR VISIT divalproex MEDICAL (GENERAL) HISTORY Type Description Date Medical History GERD Medical History Schizophrenia/schizoaffective Medical History Hypertension Medical History ODD Medical History Ganglion cyst of hand Medical History tobacco dependence Surgical History Appendectomy Goals Section No Information Health Concerns No Information MEDICAL EQUIPMENT No Information MENTAL STATUS No Information FUNCTIONAL STATUS No Information ASSESSMENTS No Information PLAN OF TREATMENT Medication Medication Name Sig Start Date Stop Date MetFORMIN HCl ER 500 MG 1 tablet with evening meal O rally Once a day for 30 day(s) Jan, Clotrimazole-Betamethasone 1-0.05 % 1 application Exte rnally Twice a day for 30 Days Apr, Divalproex Sodium 250 MG TAKE 1 TABLET BY MOUTH TWICE DAILY orally bid for 90 days Omeprazole 40 MG 1 capsule Orally Once a day for 30 Days Losartan Potassium 25 mg TAKE 1 TABLET BY MOUTH EVERY DAY orally Daily for 90 days Depakote 250 MG 1 tab Orally Twice a day for 30 days Next Appt Details Provider Name:Nieves Pulido, 2020-08-28 02:30:00 PM, [address] [place] [address], [place], [address], Provider Name:Nieves Pulido, 2020-09-04 01:30:00 PM, [address] [place] [address], [place], [address], Insurance Providers Payer Name Payer Address Payer Phone Insured Name Patient Relati onship to Insured Coverage Start Date Coverage End Date [facility] [address] [facility] [id number] HAILEE MANCIA MEDICAID [facility] [address] [facility] [id number] [phone] HAILEE MANCIA self
[2020-11-17 17:11] LABS: BASO # 0.1 10^3/uL (0.0-0.2); BASO % 1.2 % (0.0-1.0); EOS # 0.4 10^3/uL (0.0-0.5); EOS % 3.5 % (0.0-3.0); HEMATOCRIT 49.7 % (42.0-52.0); HEMOGLOBIN 16.4 g/dl (13.5-17.5); LYMPH # 3.6 10^3/uL (1.5-5.0); LYMPH % 34.6 % (24.0-44.0); MEAN CORPUSCULAR HEMOGLOBIN 28.1 pg (27.0-33.0); MEAN CORPUSCULAR VOLUME 85.2 fl (80.0-96.0); MONO # 0.7 10^3/uL (0.0-0.8); MONO % 6.9 % (0.0-5.0); NEUTROPHILS # 5.5 10^3/uL (1.5-8.5); NEUTROPHILS % 53.3 % (36.0-66.0); PLATELET COUNT, AUTOMATED 281 10^3/uL (150-450); RED BLOOD COUNT 5.83 10^6/uL (4.30-6.10); WHITE BLOOD COUNT 10.4 10^3/uL (4.0-10.0)
--- OUTSIDE RECORDS SUMMARY | 2020-11-17 17:26 | CCD ---
Author Author [facility] Address Unknown Phone Unavailable Care Team Providers Care Product Safety Head Name Role Phone Marjorie Barr Unavailable Unavailable NIR, H RACHNA DIESEL STATIONARY ENGINEER Unavailable Unavailable NIR, H RACHNA DIESEL STATIONARY ENGINEER Unavailable Unavailable NIR, H RACHNA DIESEL STATIONARY ENGINEER Unavailable Unavailable NIR, H RACHNA DIESEL STATIONARY ENGINEER Unavailable Unavailable NIR, H RACHNA DIESEL STATIONARY ENGINEER Unavailable Unavailable NIR, H RACHNA DIESEL STATIONARY ENGINEER Unavailable Unavailable NIR, H RACHNA DIESEL STATIONARY ENGINEER Unavailable Unavailable Barr, F Marjorie FURNITURE DIPPER-BC Unavailable Unavailable Barr, F Marjorie FURNITURE DIPPER-BC Unavailable Unavailable Barr, F Marjorie FURNITURE DIPPER-BC Unavailable Unavailable Barr, F Marjorie FURNITURE DIPPER-BC Unavailable Unavailable Barr, F Marjorie FURNITURE DIPPER-BC Unavailable Unavailable Barr, F Marjorie FURNITURE DIPPER-BC Unavailable Unavailable Barr, F Marjorie FURNITURE DIPPER-BC Unavailable Unavailable Barr, F Marjorie FURNITURE DIPPER-BC Unavailable Unavailable Barr, F Marjorie FURNITURE DIPPER-BC Unavailable Unavailable Barr, F Marjorie FURNITURE DIPPER-BC Unavailable Unavailable Barr, F Marjorie FURNITURE DIPPER-BC Unavailable Unavailable Barr, F Marjorie FURNITURE DIPPER-BC Unavailable Unavailable Barr, F Marjorie FURNITURE DIPPER-BC Unavailable Unavailable Barr, F Marjorie FURNITURE DIPPER-BC Unavailable Unavailable Barr, F Marjorie FURNITURE DIPPER-BC Unavailable Unavailable Barr, F Marjorie FURNITURE DIPPER-BC Unavailable Unavailable Barr, F Marjorie FURNITURE DIPPER-BC Unavailable Unavailable Barr, F Marjorie FURNITURE DIPPER-BC Unavailable Unavailable Barr, F Marjorie FURNITURE DIPPER-BC Unavailable Unavailable Barr, F Marjorie FURNITURE DIPPER-BC Unavailable Unavailable Barr, F Marjorie FURNITURE DIPPER-BC Unavailable Unavailable Barr, F Marjorie FURNITURE DIPPER-BC Unavailable Unavailable Tara Rajput Unavailable Re-disclosure Warning [...] is protected by Article 27-F of the [facility] Public Health law. If you continue you may have access to information: Regarding HIV / AIDS; Provided by facilities licensed or operated by the [facility] Office of Mental Health; or Provided by the [facility] Office for People With Developmental Disabilities. If such information is present, then the following [facility] mandated warning applies: This information has been [...] law may result in a fine or correction sentence or both. A general authorization for the release of medical or other information is NOT sufficient authorization for further disc losure. Allergies and Adverse Reactions Type Description Substance Reaction Status Data Source(s ) Drug allergy PROzac Fluoxetine Hallucinations Active eCW1 ([facility]) Drug allergy Zofran Ondansetron Anaphylaxis Active eCW1 ([facility]) Wellbutrin Wellbutrin Wellbutrin Violence/Aggitation Active eCW1 ([facility]) Wellbutrin Wellbutrin Wellbutrin Violence/Aggitation Active eCW1 ([facility]) Wellbutrin Wellbutrin Wellbutrin Violence/Aggitation Active eCW1 ([facility]) Family History Family Member Name Family Member Gender Family Member Status Date o f Status Description Data Source(s) Unknown Unknown Problem MEDENT ([facility]) Unknown Male Problem MEDENT ([facility]) Unknown Male Problem MEDENT ([facility] ) Encounters Encounter Providers Location Date Indications Data Source(s ) [place] [address] [address] 11/06/2020 12:00:00 AM EST eCW1 ([facility]) [place] [address] [facility] [place] [address] 08/28/2020 12:00:00 AM EDT eCW1 ([facility]) [place] [address] [facility] [place] [address] 08/18/2020 12:00:00 AM EDT eCW1 ([facility]) [place] [address] [address] 08/10/2020 12:00:00 AM EDT eCW1 ([facility]) Outpatient Attender: ANA VARGAS 06/16/2020 12:02:24 AM EDT [facility] Outpatient Attender: Marjorie VARGAS 06/10/2020 01: 22:00 PM EDT [facility] [place] [address] [address] 05/18/2020 12:00:00 AM EDT eCW1 ([facility]) [place] [address] [address] 05/15/2020 12:00:00 AM EDT eCW1 ([facility]) Outpatient Attender: Marjorie DAMON FP 03/16/2020 02: 33:02 PM EDT [facility] [place] [address] [address] 03/16/2020 12:00:00 AM EDT eCW1 ([facility]) [facility] [place] [address] [address] 03/13/2020 12:00:00 AM EDT eCW1 ([facility]) [facility] [place] [address] [address] 02/20/2020 12:00:00 AM EDT eCW1 ([facility]) [facility] [place] [address] [address] 02/18/2020 12:00:00 AM EDT eCW1 ([facility]) [facility] [address] [place] [phone] 02/17/2020 12:00:00 AM EDT eCW1 ([facility]) [facility] GME Resident [address] [place] [phone] 02/07/2020 12:00:00 AM EDT eCW1 ([facility]) Outpatient Attender: ANA VARGAS 01/24/2020 08:02:09 PM EDT [facility] Resident [address] [place] [phone] 11/30/2019 12:00:00 AM EST eCW1 ([facility]) Outpatient Attender: Marjorie DAMON FP 11/29/2019 04: 53:02 PM EST [facility] [place] [address] [facility] [address] 11/13/2019 12:00:00 AM EST eCW1 ([facility]) Unknown [address] [facility] [address] 11/12/2019 12:00:00 AM EST eCW1 ([facility]) [facility] GME Resident [address] [place] [phone] 11/12/2019 12:00:00 AM EST eCW1 ([facility]) [facility] [place] [address] [place] [phone] 11/11/2019 12:00:00 AM EST eCW1 ([facility]) [facility] GME Resident [address] [place] [phone] 11/11/2019 12:00:00 AM EST eCW1 ([facility]) [facility] [place] [address] [place] [phone] 11/11/2019 12:00:00 AM EST eCW1 ([facility]) [facility] GME Resident [address] [place] [phone] 11/09/2019 12:00:00 AM EST eCW1 ([facility]) [facility] GME Resident [address] [place] [phone] 11/08/2019 12:00:00 AM EST eCW1 ([facility]) [facility] GME Resident [address] [place] [phone] 11/08/2019 12:00:00 AM EST eCW1 ([facility]) Outpatient Attender: ANA PEREZ FP 10/28/2019 03:50:00 PM EST [facility] Outpatient Attender: Marjorie DAMON FP 10/28/2019 03: 49:02 PM EST [facility] Outpatient Attender: RACHNA LOYOLA NP [facility] kristy 10/28/2019 02:30:00 AM EST - 10/28/2019 02:30:00 AM EST [facility] ([facility]) Attender: RACHNA LOYOLA NP 10/28/2019 12:00:00 AM EST [facility] ([facility]) [facility] [address] [place] [address] 10/19/2019 12:00:00 AM EST eCW1 ([facility]) [facility] GME Resident [address] [place] [phone] 10/17/2019 12:00:00 AM EST eCW1 ([facility]) [facility] [place] [address] [address] 10/17/2019 12:00:00 AM EST eCW1 ([facility]) Health Monitoring - 30 Min Attender: Tara Rajput [facility] alicia May 10/01/2019 02:00:00 AM EST - 10/01/2019 02:00:00 AM EST [facility] ([facility]) Attender: Tara Rajput 10/01/2019 12:00:00 AM EST [facility] ([facility]) Outpatient Attender: RACHNA LOYOLA NP [facility] kristy 09/24/2019 03:30:00 AM EST - 09/24/2019 03:30:00 AM EST [facility] ([facility]) Attender: RACHNA LOYOLA NP 09/24/2019 12:00:00 AM EST [facility] ([facility]) Functional Status Immunizations Vaccine Date Status Description Data Source(s) pneumococcal polysaccharide PPV23 02/20/2020 04:22:00 PM EDT comple vladimir eCW1 ([facility]) pneumococcal polysaccharide PPV23 02/20/2020 04:22:00 PM EDT comple vladimir eCW1 ([facility]) pneumococcal polysaccharide PPV23 02/20/2020 04:22:00 PM EDT comple vladimir eCW1 ([facility]) pneumococcal polysaccharide PPV23 02/20/2020 04:22:00 PM EDT comple vladimir eCW1 ([facility]) pneumococcal polysaccharide PPV23 02/20/2020 04:22:00 PM EDT comple vladimir eCW1 ([facility]) pneumococcal polysaccharide PPV23 02/20/2020 04:22:00 PM EDT comple vladimir eCW1 ([facility]) pneumococcal polysaccharide PPV23 02/20/2020 04:22:00 PM EDT comple vladimir eCW1 ([facility]) HPV9 02/20/2020 04:21:00 PM EDT completed e CW1 ([facility]) HPV9 02/20/2020 04:21:00 PM EDT completed e CW1 ([facility]) HPV9 02/20/2020 04:21:00 PM EDT completed e CW1 ([facility]) HPV9 02/20/2020 04:21:00 PM EDT completed e CW1 ([facility]) HPV9 02/20/2020 04:21:00 PM EDT completed e CW1 ([facility]) HPV9 02/20/2020 04:21:00 PM EDT completed e CW1 ([facility]) HPV9 02/20/2020 04:21:00 PM EDT completed e CW1 ([facility]) Medications Medication Brand Name Start Date Product Form Dose Route Admi nistrative Instructions Pharmacy Instructions Status Indications Reaction Description Data Source(s) Diphenhydramine Hydrochloride 25 MG Oral Tablet [Benad ryl] Benadryl 25 MG Benadryl 25 MG 08/28/2020 12:00:00 AM EDT 1.0 {tablet} active Benadryl 25 MG eCW1 ([facility]) Diphenhydramine Hydrochloride 25 MG Oral Tablet [Benad ryl] Benadryl 25 MG Benadryl 25 MG 08/28/2020 12:00:00 AM EDT 1.0 {tablet} active Benadryl 25 MG eCW1 ([facility]) Betamethasone 0.5 MG/ML / Clotrimazole 1 0 MG/ML Topical Cream Clotrimazole- Betamethasone 1-0.05 % Clotrimazole-Betamethasone 1-0.05 % 05/19/2020 12:00:0 0 AM EDT 1.0 {application} active Clotri mazole-Betamethasone 1-0.05 % eCW1 ([facility]) Betamethasone 0.5 MG/ML / Clotrimazole 1 0 MG/ML Topical Cream Clotrimazole- Betamethasone 1-0.05 % Clotrimazole-Betamethasone 1-0.05 % 05/19/2020 12:00:0 0 AM EDT 1.0 {application} active Clotri mazole-Betamethasone 1-0.05 % eCW1 ([facility]) Betamethasone 0.5 MG/ML / Clotrimazole 1 0 MG/ML Topical Cream Clotrimazole- Betamethasone 1-0.05 % Clotrimazole-Betamethasone 1-0.05 % 05/19/2020 12:00:0 0 AM EDT 1.0 {application} active Clotri mazole-Betamethasone 1-0.05 % eCW1 ([facility]) Betamethasone 0.5 MG/ML / Clotrimazole 1 0 MG/ML Topical Cream Clotrimazole- Betamethasone 1-0.05 % Clotrimazole-Betamethasone 1-0.05 % 05/19/2020 12:00:0 0 AM EDT 1.0 {application} active Clotri mazole-Betamethasone 1-0.05 % eCW1 ([facility]) Betamethasone 0.5 MG/ML / Clotrimazole 1 0 MG/ML Topical Cream Clotrimazole- Betamethasone 1-0.05 % Clotrimazole-Betamethasone 1-0.05 % 05/19/2020 12:00:0 0 AM EDT 1.0 {application} active Clotri mazole-Betamethasone 1-0.05 % eCW1 ([facility]) MetFORMIN HCl ER 500 MG MetFORMIN HCl ER 500 MG 02/07/2020 12:00:00 AM EDT 1.0 {tablet_with_evening_meal} active MetF ORMIN HCl ER 500 MG eCW1 ([facility]) 24 HR Metformin hydrochloride 500 MG Ext ended Release Oral Tablet MetFORMIN HCl ER 500 MG MetFORMIN HCl ER 500 MG 02/07/2020 12:00:00 AM EDT 1.0 {tablet_with_evening_meal} suspended Met FORMIN HCl ER 500 MG eCW1 ([facility]) MetFORMIN HCl ER 500 MG MetFORMIN HCl ER 500 MG 02/07/2020 12:00:00 AM EDT 1.0 {tablet_with_evening_meal} active MetF ORMIN HCl ER 500 MG eCW1 ([facility]) MetFORMIN HCl ER 500 MG MetFORMIN HCl ER 500 MG 02/07/2020 12:00:00 A M EDT active 1 tablet with evenin g meal eCW1 ([facility]) MetFORMIN HCl ER 500 MG MetFORMIN HCl ER 500 MG 02/07/2020 12:00:00 AM EDT 1.0 {tablet_with_evening_meal} active MetF ORMIN HCl ER 500 MG eCW1 ([facility]) MetFORMIN HCl ER 500 MG MetFORMIN HCl ER 500 MG 02/07/2020 12:00:00 AM EDT 1.0 {tablet_with_evening_meal} active MetF ORMIN HCl ER 500 MG eCW1 ([facility]) 24 HR Metformin hydrochloride 500 MG Ext ended Release Oral Tablet MetFORMIN HCl ER 500 MG MetFORMIN HCl ER 500 MG 02/07/2020 12:00:00 AM EDT 1.0 {tablet_with_evening_meal} suspended Met FORMIN HCl ER 500 MG eCW1 ([facility]) Metformin hydrochloride 500 MG Oral Tablet Metformin H Cl 500 MG Metformin HCl 500 MG 11/09/2019 12:00:00 AM EST active 1 tablet with a meal eCW1 ([facility]) Metformin hydrochloride 500 MG Oral Tablet Metformin H Cl 500 MG Metformin HCl 500 MG 11/09/2019 12:00:00 AM EST active 1 tablet with a meal eCW1 ([facility]) Insurance Providers Payer name Policy type / Coverage type Policy ID Covered democrat ID Covered democrat's relationship to balderas Policy Balderas Plan Information NAILA [id number] SP [id number] [facility] [id number] SP [id number] [facility] [id number] SP [id number] [facility](MCAID) O [id number] S [id number] MEDICAID M [id number] [facility] Secure Horizons P [id number] S [id number] Medicare Wrap S [id number] S [id number] [facility] MEDICARE DUAL G [id number] Self [id number] MEDICAID M [id number] Self [id number] MEDICAID [id number] SP [id number] MEDICARE [id number] SP [id number] UN COMMUNITY PLAN MCDHMO [id number] SP [id number] [facility] HMO [id number] SP [id number] [facility] Secure Horizons P [id number] S [id number] UN COMMUNITY PLAN MCDHMO [id number] SP [id number] Medicare S [id number] S [id number] UNHC CP DUAL COMP CO [id number] 18 [id number] [facility] COMMUNTY PLAN [id number] 18 [id number] UN COMMUNITY PLAN XIX [id number] 18 [id number] MEDICAID [id number] COUNTS INCLUDE 234 [facility]EDS AT THE [facility] MEDICARE COMPLETE -PHYS [id number] 18 [id number] COUNTS INCLUDE 234 BEDS AT THE [facility] MEDICARE COMPLETE - O/P [id number] 18 [id number] MEDICAID -O/P EMERGENCY ROOM [id number] MEDICAID -PHYSICIAN [id number] COUNTS INCLUDE 234 BEDS AT THE [facility] CP DUAL COMP -PHYSICIAN [id number] 18 [id number] UNHC CP DUAL COMP - FACILITY [id number] 18 [id number] [facility] [place] [id number] 18 [id number] COUNTS INCLUDE 234 BEDS AT THE [facility] COMMUNITY PLAN XIX [id number] 18 [id number] MEDICAID [id number] Managed Care - [facility] O [id number] S [id number] [place] Medig[place] Part B [id number] Self [id number] Dual Complete Commercial [id number] Self [id number] [place]ig[place] Part B [id number] Self [id number] Dual Complete Commercial [id number] Self [id number] [facility] Comm Plan Medicare F [id number] SELF [id number] Medicare C [id number] SELF [id number] [place] Medicaid F [id number] SELF [id number] [facility] Comm Plan Medicaid F [id number] SELF [id number] [facility] Comm Plan Medicaid F [id number] SELF [id number] [facility] Communty Plan Medicaid [id number] Self [id number] MEDICAID [id number] [facility] Communty Plan Medicaid [id number] Self [id number] [facility] Communty Plan Medicaid [id number] Self [id number] [facility] COMMUNTY PLAN [id number] 18 [id number] MEDICARE PART A [facility] [id number] 18 [id number] SECURE HORIZONS UNHC MEDICARE O/P [id number] 18 [id number] MEDICAID -O/P [id number] [facility] Secure Horizons P [id number] S [id number] [facility] MCR -OP [id number] 18 [id number] MEDICARE [id number] SP [id number] ANSI-Medicaid [id number] ANSI-Medicare Part B [id number] [place] Part [place] [id number] Self [id number] [facility] ([facility]) Commercial [id number] Self [id number] [place] Med[place] [id number] Self [id number] [facility] ([facility]) Commercial [id number] Self [id number] [place] [id number] Self [id number] [facility] ([facility]) Commercial [id number] Self [id number] [place] [id number] Self [id number] [facility] ([facility]) Commercial [id number] Self [id number] Medicare Wrap S [id number] S [id number] MEDICARE [id number] SP [id number] [facility] MEDICARE DUAL G [id number] Self [id number] [facility] DUAL COMPLETE O [id number] S [id number] [facility](MCAID) O [id number] S [id number] UNHC COMMUNITY PLAN XIX [id number] 18 [id number] [facility] Communty Plan Medicaid [id number] Self [id number] Medicaid Commercial [id number] Self [id number] Medicare Part A [place] Medicare Primary [id number] Self [id number] Managed Care - [facility] P [id number] S [id number] Medicaid [place] Medigap Part B [id number] Self [id number] [facility] ([facility]) Commercial [id number] Self [id number] MEDICAID [id number] SP [id number] MEDICARE C [id number] S [id number] Problems, Conditions, and Diagnoses Code Display Name Description Problem Type Effective Dates Data Source(s) I10 [id number] Essential (primary) hypertension Problem 09/14/2020 12:00:00 AM EST eCW1 ([facility]) G47.9 [id number] Sleep disturbance, unspecified Problem 08/28/2020 12:00:00 AM EDT eCW1 ([facility]) E78.6 [id number] Low HDL (under 40) Problem 11/15/2019 12:00: 00 AM EST eCW1 ([facility]) E78.6 390128894 Low HDL (under 40) Problem 11/15/2019 12:00: 00 AM EST eCW1 ([facility]) K21.9 790857242 Gastroesophageal reflux disease without e sophagitis Problem 11/07/2019 12:00:00 AM EST eCW1 ([facility]) K21.0 503533051 GERD with esophagitis Problem 11/07/2019 12: 00:00 AM EST eCW1 ([facility]) K21.9 271577294 Gastroesophageal reflux disease without e sophagitis Problem 11/07/2019 12:00:00 AM EST eCW1 ([facility]) K21.0 210834656 GERD with esophagitis Problem 11/07/2019 12: 00:00 AM EST eCW1 ([facility]) F43.12 Post-traumatic stress disorder, chronic Post-traumatic stress disorder, chronic Condition 10/28/2019 12:00:00 AM EST [facility] ([facility]) F20.89 Other schizophrenia Other schizophrenia Condition 1 12:00:00 AM EST [facility] ([facility]) F12.20 Cannabis dependence, uncomplicated Cannabis Use Disorder, Moderate Condition 10/28/2019 12:00:00 AM EST [facility] ([facility]) F32.9 Major depressive disorder, single episod e, unspecified Unspecified depressive Disorder Condition 10/28/2019 12:00:00 AM EST [facility] ([facility]) F17.210 00589182 Cigarette nicotine dependence without com plication Problem 10/18/2019 12:00:00 AM EST eCW1 ([facility]) F41.9 49209426 Anxiety Problem 10/18/2019 12:00:00 AM ES T eCW1 ([facility]) I10 84816936 Essential hypertension Problem 10/18/2019 12 :00:00 AM EST eCW1 ([facility]) F17.210 09432311 Cigarette nicotine dependence without com plication Problem 10/18/2019 12:00:00 AM EST eCW1 ([facility]) F41.9 85727242 Anxiety Problem 10/18/2019 12:00:00 AM ES T eCW1 ([facility]) I10 97164137 Essential hypertension Problem 10/18/2019 12 :00:00 AM EST eCW1 ([facility]) F12.90 233270409 Marijuana use Problem 09/27/2019 12:00:00 AM EST eCW1 ([facility]) F12.90 599462056 Marijuana use Problem 09/27/2019 12:00:00 AM EST eCW1 ([facility]) Surgeries/Procedures Procedure Description Date Indications Data Source(s) HPV9 0.5mL (Gardasil 9) 02/20/2020 12:00:00 AM EDT eCW1 ([facility]) Pneumococcal Adult 0.5mL (Pneumovax 23) 02/20/2020 12: 00:00 AM EDT eCW1 ([facility]) IMMUNIZATION ADMIN 02/20/2020 12:00:00 AM EDT eCW1 ([facility]) HPV9 (VFC) 0.5mL (Gardasil 9) 02/07/2020 12:00:00 AM E DT eCW1 ([facility]) VFC Administration Charge 02/07/2020 12:00:00 AM EDT eCW1 ([facility]) Injection: Tuberculin Purified Protein 0.1mL Intradermal (PP D) 11/13/2019 12:00:00 AM EST eCW1 ([facility]) TB Intradermal Test 11/08/2019 12:00:00 AM EST eCW1 ([facility]) OFFICE OUTPATIENT VISIT 15 MINUTES 10/28 12:00:00 AM EST - 10/28/2019 12:00:00 AM EST [facility] ([facility]) OFFICE OUTPATIENT VISIT 15 MINUTES 10/28/2019 12:00:00 AM EST [facility] ([facility]) Office Visit, Est Pt., Level 2 FC 10/17/2019 12:00:00 AM EST eCW1 ([facility]) PREVENT MED COMMERCIAL MORTGAGE BROKER&/RISK FACTOR REDJ SPX 30 MIN 10/01/2019 12:00:00 AM EST - 10/01/2019 12:00:00 AM EST [facility] ([facility]) PREVENT MED COMMERCIAL MORTGAGE BROKER&/RISK FACTOR REDJ SPX 30 MIN 10/01 12:00:00 AM EST [facility] ([facility]) OFFICE OUTPATIENT VISIT 15 MINUTES 09/24 12:00:00 AM EST - 09/24/2019 12:00:00 AM EST [facility] ([facility]) OFFICE OUTPATIENT VISIT 15 MINUTES 09/24/2019 12:00:00 AM EST [facility] ([facility]) Results ID Date Data Source LIPID PANEL (CARDIAC RISK) 11/01/2019 12:00:00 AM EST eCW1 ( [facility]) Name Value Range Interpretation Code Description Data Avis rce(s) Supporting Document(s) Triglyceride [Mass/volume] in Serum or Plasma by calculation 367 <150 TRIGLYCERIDES LEVEL eCW1 ([facility] [facility]) Cholesterol in LDL [Mass/volume] in Serum or Plasma by calculation 43 <100 LDL CHOLESTEROL eCW1 ([facility]) Cholesterol in HDL [Moles/volume] in Serum or Plasma 24 >40 HDL CHOLESTEROL eCW1 ([facility]) 5.833 <5 CHOLESTEROL RISK RATIO eCW1 ([facility]) 116 NON-HDL-C eCW1 ([facility]) Cholesterol [Moles/volume] in Serum or Plasma 140 <200 CHOLESTEROL LEVEL eCW1 ([facility]) ID Date Data Source [id number] 11/01/2019 12:00:00 AM EST eCW1 ([facility]) Name Value Range Interpretation Code Description Data Avis rce(s) Supporting Document(s) Hemoglobin A1c/Hemoglobin.total in Blood 5.6 HEMOGLOBIN A1c eCW1 ([facility]) ID Date Data Source CBC with Differential 11/01/2019 12:00:00 AM EST eCW1 ([facility]) Name Value Range Interpretation Code Description Data Avis rce(s) Supporting Document(s) 10.9 4.0-10.0 WHITE BLOOD COUNT eCW1 ([facility]) 16.0 13.5-17.5 HEMOGLOBIN eCW1 ([facility]) 50.6 42.0-52.0 HEMATOCRIT eCW1 ([facility]) 5.93 4.30-6.10 RED BLOOD COUNT eCW1 ([facility]) 31.6 32.0-36.5 MEAN CORPUSCULAR HGB CONC eCW1 ([facility]) 13.4 11.5-14.5 RED CELL DISTRIBUTION WID TH eCW1 ([facility]) 320 150-450 PLATELET COUNT, AUTOMATED eCW1 ([facility]) 85.3 80.0-96.0 MEAN CORPUSCULAR VOLUME e CW1 ([facility]) 27.0 27.0-33.0 MEAN CORPUSCULAR HEMOGLOB IN eCW1 ([facility]) Procedure Social History Code Duration Value Status Description Data Source(s ) Smoking 09/14/2020 12:00:00 AM EST Current Smoker completed Curre nt Smoker eCW1 ([facility]) Smoking 09/14/2020 12:00:00 AM EST Current Smoker completed Curre nt Smoker eCW1 ([facility]) Smoking 02/17/2020 12:00:00 AM EDT Current Smoker completed Curre nt Smoker eCW1 ([facility]) Smoking 02/17/2020 12:00:00 AM EDT Current Smoker completed Curre nt Smoker eCW1 ([facility]) Smoking 02/17/2020 12:00:00 AM EDT Current Smoker completed Curre nt Smoker eCW1 ([facility]) Smoking 02/17/2020 12:00:00 AM EDT Current Smoker completed Curre nt Smoker eCW1 ([facility]) Smoking 10/28/2019 12:00:00 AM EST Unknown if ever smoked comp leted Unknown if ever smoked [facility] ([facility]) Smoking 10/01/2019 12:00:00 AM EST Unknown if ever smoked comp leted Unknown if ever smoked [facility] ([facility]) Smoking 09/24/2019 12:00:00 AM EST Unknown if ever smoked comp leted Unknown if ever smoked [facility] ([facility]) Vital Signs ID Date Data Source UNK Name Value Range Interpretation Code Description Data Source(s) Diastolic blood pressure 98 mm[Hg] 98 mm[Hg] eCW1 ([facility]) Systolic blood pressure 134 mm[Hg] 134 mm[Hg] e CW1 ([facility]) Body temperature 97.3 [degF] 97.3 [degF] eCW1 ( [facility]) Respiratory rate 18 /min 18 /min eCW1 ([facility]) Heart rate 133 /min 133 /min eCW1 ([facility]) Body mass index (BMI) [Ratio] 36.69 kg/m2 36.69 kg/m2 eCW1 ([facility]) Body height 65.25 [in_i] 65.25 [in_i] eCW1 ([facility]) Body weight 222.2 [lb_av] 222.2 [lb_av] eCW1 ([facility]) Diastolic blood pressure 70 mm[Hg] 70 mm[Hg] eCW1 ([facility]) Systolic blood pressure 120 mm[Hg] 120 mm[Hg] e CW1 ([facility]) Body temperature 98.4 [degF] 98.4 [degF] eCW1 ( [facility]) Respiratory rate 20 /min 20 /min eCW1 ([facility]) Heart rate 88 /min 88 /min eCW1 ([facility]) Body mass index (BMI) [Ratio] 34.01 kg/m2 34.01 kg/m2 eCW1 ([facility]) Body height 65.25 [in_us] 65.25 [in_us] eCW1 ([facility]) Body weight Measured 206 [lb_av] 206 [lb_av] eC W1 ([facility]) Diastolic blood pressure 78 mm[Hg] 78 mm[Hg] eCW1 ([facility]) Systolic blood pressure 132 mm[Hg] 132 mm[Hg] e CW1 ([facility]) Body temperature 99.1 [degF] 99.1 [degF] eCW1 ( [facility]) Respiratory rate 18 /min 18 /min eCW1 ([facility]) Heart rate 127 /min 127 /min eCW1 ([facility]) Body mass index (BMI) [Ratio] 30.71 kg/m2 30.71 kg/m2 eCW1 ([facility]) Body height 65.25 [in_us] 65.25 [in_us] eCW1 ([facility]) Body weight Measured 186 [lb_av] 186 [lb_av] eC W1 ([facility]) Diastolic blood pressure 60 mm[Hg] 60 mm[Hg] eCW1 ([facility]) Systolic blood pressure 110 mm[Hg] 110 mm[Hg] e CW1 ([facility]) Body temperature 98.8 [degF] 98.8 [degF] eCW1 ( [facility]) Respiratory rate 20 /min 20 /min eCW1 ([facility]) Heart rate 88 /min 88 /min eCW1 ([facility]) Body mass index (BMI) [Ratio] 31.04 kg/m2 31.04 kg/m2 eCW1 ([facility]) Body height 65.25 [in_us] 65.25 [in_us] eCW1 ([facility]) Body weight Measured 188 [lb_av] 188 [lb_av] eC W1 ([facility]) Respiratory rate 16 min Normal (applies to non-numeric results) 16 min [facility] ([facility]) Body height --lying 102 min Normal (applies to non-nume tyra results) 102 min [facility] ([facility]) Diastolic blood pressure 88 mm[Hg] Normal (applies to non-numeric results) 88 mm[Hg] [facility] ([facility]) Systolic blood pressure 126 mm[Hg] Normal (applies t o non-numeric results) 126 mm[Hg] [facility] ([facility]) Body mass index (BMI) [Ratio] 31.45 kg/m2 No rmal (applies to non-numeric results) 31.45 kg/m2 [facility] ([facility]) Body weight Measured 189.00 lbs Normal (applies to n on-numeric results) 189.00 lbs [facility] ([facility]) Body height 65.00 in Normal (applies to non-numeric resu lts) 65.00 in [facility] ([facility]) Patient Treatment Plan of Care Planned Activity Planned Date Details Description Data Source (s) Diphenhydramine Hydrochloride 25 MG Oral Tablet [Benad ryl] 08/28/2020 12:00:00 AM EDT eCW1 ([facility]) Diphenhydramine Hydrochloride 25 MG Oral Tablet [Benad ryl] 08/28/2020 12:00:00 AM EDT eCW1 ([facility]) Betamethasone 0.5 MG/ML / Clotrimazole 10 MG/ML Topica l Cream 05/19/2020 12:00:00 AM EDT eCW1 ([facility]) Betamethasone 0.5 MG/ML / Clotrimazole 10 MG/ML Topica l Cream 05/19/2020 12:00:00 AM EDT eCW1 ([facility]) Betamethasone 0.5 MG/ML / Clotrimazole 10 MG/ML Topica l Cream 05/19/2020 12:00:00 AM EDT eCW1 ([facility]) Betamethasone 0.5 MG/ML / Clotrimazole 10 MG/ML Topica l Cream 05/19/2020 12:00:00 AM EDT eCW1 ([facility]) Betamethasone 0.5 MG/ML / Clotrimazole 10 MG/ML Topica l Cream 05/19/2020 12:00:00 AM EDT eCW1 ([facility]) MetFORMIN HCl ER 500 MG 02/07/2020 12:00:00 AM EDT eCW1 ([facility]) MetFORMIN HCl ER 500 MG 02/07/2020 12:00:00 AM EDT eCW1 ([facility]) MetFORMIN HCl ER 500 MG 02/07/2020 12:00:00 AM EDT eCW1 ([facility]) MetFORMIN HCl ER 500 MG 02/07/2020 12:00:00 AM EDT eCW1 ([facility]) MetFORMIN HCl ER 500 MG 02/07/2020 12:00:00 AM EDT eCW1 ([facility]) Metformin hydrochloride 500 MG Oral Tablet 11/09/2019 12:00:[address] eCW1 ([facility]) Metformin hydrochloride 500 MG Oral Tablet 11/09/2019 12:00:[address] eCW1 ([facility])
[2020-11-17] MEDS ORDERED: cloNIDine 0.1MG TABLET PO ONE (18:15)
[2020-11-17 18:51] VITALS: BP 148/98
--- NOTE | 2020-11-18 05:54 | ECGEPIP ---
[facility] - ED Test Date: 2020-11-17 Pat Name: HAILEE MANCIA Department: Room: - Gender: Male Addiction Psychiatrist: JACK : 1995 Requested By: SHEELA Cui PA-C Order Number: [id number] Reading MD: Matheus Ray Measurements Intervals [place] Rate: 117 P: 59 [place]: 150 QRS: 69 QRSD: 84 T: 52 QT: 352 QTc: 491 Interpretive Statements SINUS TACHYCARDIA NONSPECIFIC T-WAVE ABNORMALITY NO PRIORS FOR COMPARISON Electronically Signed on 11-18-2020 5:54:22 EST by Matheus Ray
== END 2020-11-17 18:52 | disposition home or self-care (01) ==
LOC: M ED 16:19
DX: I10 Essential (primary) hypertension (principal); E11.9 Type 2 diabetes mellitus without complications; J44.9 Chronic obstructive pulmonary disease, unspecified; F17.200 Nicotine dependence, unspecified, uncomplicated; Z88.8 Allergy status to other drugs, medicaments and biological substances

== ENCOUNTER 2020-11-28 19:54 | Emergency (ER) | payer MEDICARE, MEDICAID ==
[~2020-11-28] VITALS: Ht 167.6 cm; Wt 109.1 kg
[~2020-11-28 19:54] MED LIST changes: -HYDR-3490; +HYDR25TAB
--- OUTSIDE RECORDS SUMMARY | 2020-11-28 19:58 | CCD ---
Author Author [facility] Organization [facility] ems Address Unknown Phone Unavailable Care Team Providers Care Mainframe Systems Administrator Name Role Phone Nieves Pulido Unavailable PROBLEMS Type Condition ICD9-CM Code UTX25-EP Code Onset Dates Condition S tatus SNOMED Code Notes Problem Marijuana use F12.90 Active 031995052 Problem Schizophrenia, unspecified type F20.9 Active 04000359 Problem Low HDL (under 40) E78.6 Active 975210381 Problem Sleep disturbance, unspecified G47.9 Active 5 7171365 Problem Body mass index (BMI) 32.0-32.9, adult Z68.32 A ctive 389296774 Problem Essential (primary) hypertension I10 Active 78098137 Problem Obesity, unspecified E66.9 Active 305946435 Problem GERD with esophagitis K21.0 Active 064806377 Problem Gastroesophageal reflux disease without esophagitis K21.9 Active 091134649 Problem Anxiety F41.9 Active 36188683 Problem Cigarette nicotine dependence without complication F17.210 Active 25989711 ALLERGIES Allergen (clinical drug ingredient) Drug/Non Drug Allergy do cumented on EMR Reaction Allergy Type Onset Date Status ondansetron Zofran(NDC Code:[address]-52) Anaphylaxis Drug Allergy Active Wellbutrin Violence/Aggitation Drug Allergy Act faisal fluoxetine PROzac(ND Code:[address]-42) Hallucinations Drug Allergy Active ENCOUNTERS from 1993 to 2020-11-20 Encounter Location Date Provider Diagnosis [address] [address] Oct, Nieves Segurahay IMMUNIZATIONS Vaccine Route Administration Date Status HPV9 [...] Education Language: Question Answer Notes Languages spoken: [place] [facility]: Question Answer Notes [facility] 08 Denominational Sexual Hx: Question Answer Notes Had sex [...] Information RESULTS No Results REASON FOR VISIT ER Visit [facility] 11/17; Blood Pressure MEDICAL (GENERAL) HISTORY Type Description Date Medical [...] Orally before bedtime for 30 Days 30 2019 Losartan Potassium 25 mg TAKE 1 TABLET BY MOUTH EVERY DAY orally Daily Clotrimazole-Betamethasone 1-0.05 % 1 application Externally Twice a day Apr, Next Appt Details Provider Name:Nieves Reynosoy, 2020-12-04 03:00:00 PM, [address] [facility], [place], [address], Insurance Providers Payer Name Payer Address Payer Phone Insured Name Patient Relati onship to Insured Coverage Start Date Coverage End Date MEDICAID [employer] [address] [facility] [id number] HAILEE MANCIA [facility] [address] [facility] [id number] HAILEE MANCIA
--- OUTSIDE RECORDS SUMMARY | 2020-11-28 19:58 | CCD ---
Author Author [facility] Address Unknown Phone Unavailable Care Team Providers Care Bag Tester Name Role Phone Marjorie Barr Unavailable Unavailable NIR, H RACHNA ANTIQUE REFINISHER Unavailable Unavailable NIR, H RACHNA ANTIQUE REFINISHER Unavailable Unavailable NIR, H RACHNA ANTIQUE REFINISHER Unavailable Unavailable NIR, H RACHNA ANTIQUE REFINISHER Unavailable Unavailable NIR, H RACHNA ANTIQUE REFINISHER Unavailable Unavailable NIR, H RACHNA ANTIQUE REFINISHER Unavailable Unavailable NIR, H RACHNA ANTIQUE REFINISHER Unavailable Unavailable Barr, F Marjorie SKIN FORMER-BC Unavailable Unavailable Barr, F Marjorie SKIN FORMER-BC Unavailable Unavailable Barr, F Marjorie SKIN FORMER-BC Unavailable Unavailable Barr, F Marjorie SKIN FORMER-BC Unavailable Unavailable Barr, F Marjorie SKIN FORMER-BC Unavailable Unavailable Barr, F Marjorie SKIN FORMER-BC Unavailable Unavailable Barr, F Marjorie SKIN FORMER-BC Unavailable Unavailable Barr, F Marjorie SKIN FORMER-BC Unavailable Unavailable Barr, F Marjorie SKIN FORMER-BC Unavailable Unavailable Barr, F Marjorie SKIN FORMER-BC Unavailable Unavailable Barr, F Marjorie SKIN FORMER-BC Unavailable Unavailable Barr, F Marjorie SKIN FORMER-BC Unavailable Unavailable Barr, F Marjorie SKIN FORMER-BC Unavailable Unavailable Barr, F Marjorie SKIN FORMER-BC Unavailable Unavailable Barr, F Marjorie SKIN FORMER-BC Unavailable Unavailable Barr, F Marjorie SKIN FORMER-BC Unavailable Unavailable Barr, F Marjorie SKIN FORMER-BC Unavailable Unavailable Barr, F Marjorie SKIN FORMER-BC Unavailable Unavailable Barr, F Marjorie SKIN FORMER-BC Unavailable Unavailable Barr, F Marjorie SKIN FORMER-BC Unavailable Unavailable Barr, F Marjorie SKIN FORMER-BC Unavailable Unavailable Barr, F Marjorie SKIN FORMER-BC Unavailable Unavailable Tara Rajput Unavailable Re-disclosure Warning [...] is protected by Article 27-F of the [facility] Public Health law. If you continue you may have access to information: Regarding HIV / AIDS; Provided by facilities licensed or operated by the [facility] Office of Mental Health; or Provided by the [facility] Office for People With Developmental Disabilities. If such information is present, then the following [facility] mandated warning applies: This information has been [...] law may result in a fine or fci sentence or both. A general authorization for the release of medical or other information is NOT sufficient authorization for further disc losure. Allergies and Adverse Reactions Type Description Substance Reaction Status Data Source(s ) Drug allergy PROzac Fluoxetine Hallucinations Active eCW1 ([facility]) Drug allergy Zofran Ondansetron Anaphylaxis Active eCW1 ([facility]) Wellbutrin Wellbutrin Wellbutrin Violence/Aggitation Active eCW1 ([facility]) Wellbutrin Wellbutrin Wellbutrin Violence/Aggitation Active eCW1 (Pending [facility] To [facility]) Wellbutrin Wellbutrin Wellbutrin Violence/Aggitation Active eCW1 ([facility]) Family History Family Member Name Family Member Gender Family Member Status Date o f Status Description Data Source(s) Unknown Unknown Problem MEDENT ([facility]) Unknown Male Problem MEDENT ([facility]) Unknown Male Problem MEDENT ([facility]) Encounters Encounter Providers Location Date Indications Data Source(s ) Unknown [address] [facility] [address] 11/18/2020 12:00:00 AM EST eCW1 ([facility]) Unknown [address] [facility] [place] [address] 11/06/2020 12:00:00 AM EST eCW1 ([facility]) Outpatient [address] [facility] [place] [address] 08/28/2020 12:00:00 AM EDT eCW1 ([facility]) Unknown [address] [facility] [place] [address] 08/18/2020 12:00:00 AM EDT eCW1 ([facility]) Unknown [address] [facility] [place] [address] 08/10/2020 12:00:00 AM EDT eCW1 ([facility]) Outpatient Attender: ANA VARGAS 06/16/2020 12:02:24 AM EDT [facility] Outpatient Attender: Marjorie VARGAS 06/10/2020 01: 22:00 PM EDT [facility] Unknown [address] [facility] [address] 05/18/2020 12:00:00 AM EDT eCW1 ([facility]) Unknown [address] [facility] [address] 05/15/2020 12:00:00 AM EDT eCW1 ([facility]) Outpatient Attender: Marjorie VARGAS 03/16/2020 02: 33:02 PM EDT [facility] [address] [place] [phone] 03/16/2020 12:00:00 AM EDT eCW1 ([facility]) [facility] [address] [facility] [address] 03/13/2020 12:00:00 AM EDT eCW1 ([facility]) [facility] [place] [address] [facility] [address] 02/20/2020 12:00:00 AM EDT eCW1 ([facility]) [facility] [address] [facility] [address] 02/18/2020 12:00:00 AM EDT eCW1 ([facility]) [facility] [address] [place] [phone] 02/17/2020 12:00:00 AM EDT eCW1 ([facility]) [facility] GME Resident [address] [place] [phone] 02/07/2020 12:00:00 AM EDT eCW1 ([facility]) Outpatient Attender: ANA VARGAS 01/24/2020 08:02:09 PM EDT [facility] Resident [address] [place] [phone] 11/30/2019 12:00:00 AM EST eCW1 ([facility]) Outpatient Attender: Marjorie DAMON FP 11/29/2019 04: 53:02 PM EST [facility] [place] [address] [place] [phone] 11/13/2019 12:00:00 AM EST eCW1 ([facility]) Unknown [address] [place] [phone] 11/12/2019 12:00:00 AM EST eCW1 ([facility]) [facility] GME Resident [address] [place] [phone] 11/12/2019 12:00:00 AM EST eCW1 ([facility]) [facility] [address] [place] [phone] 11/11/2019 12:00:00 AM EST eCW1 ([facility]) [facility] GME Resident [address] [place] [phone] 11/11/2019 12:00:00 AM EST eCW1 ([facility]) [facility] [place] [address] [place] [phone] 11/11/2019 12:00:00 AM EST eCW1 ([facility]) [facility] GME Resident [address] [place] [phone] 11/09/2019 12:00:00 AM EST eCW1 ([facility]) [facility] GME Resident [address] [place] [phone] 11/08/2019 12:00:00 AM EST eCW1 ([facility]) [facility] GME Resident [address] [place] [phone] 11/08/2019 12:00:00 AM EST eCW1 ([facility]) Outpatient Attender: ANA VARGAS 10/28/2019 03:50:00 PM EST [facility] Outpatient Attender: Marjorie DAMON FP 10/28/2019 03: 49:02 PM EST [facility] Outpatient Attender: RACHNA LOYOLA ANTIQUE REFINISHER [facility] 10/28/2019 02:30:00 AM EST - 10/28/2019 02:30:00 AM EST [facility] ([facility]) Attender: RACHNA LOYOLA NP 10/28/2019 12:00:00 AM EST [facility] ([facility]) [facility] [address] [place] [phone] 10/19/2019 12:00:00 AM EST eCW1 ([facility]) [facility] GME Resident [address] [place] [phone] 10/17/2019 12:00:00 AM EST [facility]CW1 [facility] [place] [address] [place] [address], [place] [address] 10/17/2019 12:00:00 AM EST eCW1 ([facility]) Health Monitoring - 30 Min Attender: Tara Rajput [facility] alicia May 10/01/2019 02:00:00 AM EST - 10/01/2019 02:00:00 AM EST [facility] ([facility]) Attender: Tara Rajput 10/01/2019 12:00:00 AM EST [facility] ([facility]) Functional Status Immunizations Vaccine Date Status Description Data Source(s) pneumococcal polysaccharide PPV23 02/20/2020 04:22:00 PM EDT comple vladimir eCW1 ([facility]) pneumococcal polysaccharide PPV23 02/20/2020 04:22:00 PM EDT comple vladimir eCW1 (Pending Sale To [facility]) pneumococcal polysaccharide PPV23 02/20/2020 04:22:00 PM EDT comple vladimir eCW1 (Pending Sale To [facility]) pneumococcal polysaccharide PPV23 02/20/2020 04:22:00 PM EDT comple vladimir eCW1 (Pending Sale To [facility]) pneumococcal polysaccharide PPV23 02/20/2020 04:22:00 PM EDT comple vladimir eCW1 (Pending Sale To [facility]) pneumococcal polysaccharide PPV23 02/20/2020 04:22:00 PM EDT comple vladimir eCW1 (Pending Sale To [facility]) pneumococcal polysaccharide PPV23 02/20/2020 04:22:00 PM EDT comple vladimir eCW1 (Pending Sale To [facility]) pneumococcal polysaccharide PPV23 02/20/2020 04:22:00 PM EDT comple vladimir eCW1 (Pending Sale To [facility]) HPV9 02/20/2020 04:21:00 PM EDT completed e CW1 (Pending Sale To [facility]) HPV9 02/20/2020 04:21:00 PM EDT completed e CW1 (Pending Sale To [facility]) HPV9 02/20/2020 04:21:00 PM EDT completed e CW1 (Pending Sale To [facility]) HPV9 02/20/2020 04:21:00 PM EDT completed e CW1 (Pending Sale To [facility]) HPV9 02/20/2020 04:21:00 PM EDT completed e CW1 (Pending Sale To [facility]) HPV9 02/20/2020 04:21:00 PM EDT completed e CW1 (Pending [facility] To [facility]) HPV9 02/20/2020 04:21:00 PM EDT completed e CW1 (Pending [facility]) HPV9 02/20/2020 04:21:00 PM EDT completed e CW1 (Pending [facility] To [facility]) Medications Medication Brand Name Start Date Product Form Dose Route Admi nistrative Instructions Pharmacy Instructions Status Indications Reaction Description Data Source(s) Diphenhydramine Hydrochloride 25 MG Oral Tablet [Benad ryl] Benadryl 25 MG Benadryl 25 MG 08/28/2020 12:00:00 AM EDT 1.0 {tablet} active Benadryl 25 MG eCW1 (Pending Sale To [facility]) Diphenhydramine Hydrochloride 25 MG Oral Tablet [Benad ryl] Benadryl 25 MG Benadryl 25 MG 08/28/2020 12:00:00 AM EDT 1.0 {tablet} active Benadryl 25 MG eCW1 (Pending Sale To [facility]) Diphenhydramine Hydrochloride 25 MG Oral Tablet [Benad ryl] Benadryl 25 MG Benadryl 25 MG 08/28/2020 12:00:00 AM EDT 1.0 {tablet} active Benadryl 25 MG eCW1 (Pending Sale To [facility]) Betamethasone 0.5 MG/ML / Clotrimazole 1 0 MG/ML Topical Cream Clotrimazole- Betamethasone 1-0.05 % Clotrimazole-Betamethasone 1-0.05 % 05/19/2020 12:00:0 0 AM EDT 1.0 {application} active Clotri mazole-Betamethasone 1-0.05 % eCW1 (Pending Sale To [facility]) Betamethasone 0.5 MG/ML / Clotrimazole 1 0 MG/ML Topical Cream Clotrimazole- Betamethasone 1-0.05 % Clotrimazole-Betamethasone 1-0.05 % 05/19/2020 12:00:0 0 AM EDT 1.0 {application} active Clotri mazole-Betamethasone 1-0.05 % eCW1 (Pending Sale To [facility]) Betamethasone 0.5 MG/ML / Clotrimazole 1 0 MG/ML Topical Cream Clotrimazole- Betamethasone 1-0.05 % Clotrimazole-Betamethasone 1-0.05 % 05/19/2020 12:00:0 0 AM EDT 1.0 {application} active Clotri mazole-Betamethasone 1-0.05 % eCW1 (Pending Sale To [facility]) Betamethasone 0.5 MG/ML / Clotrimazole 1 0 MG/ML Topical Cream Clotrimazole- Betamethasone 1-0.05 % Clotrimazole-Betamethasone 1-0.05 % 05/19/2020 12:00:0 0 AM EDT 1.0 {application} active Clotri mazole-Betamethasone 1-0.05 % eCW1 (Pending Sale To [facility]) Betamethasone 0.5 MG/ML / Clotrimazole 1 0 MG/ML Topical Cream Clotrimazole- Betamethasone 1-0.05 % Clotrimazole-Betamethasone 1-0.05 % 05/19/2020 12:00:0 0 AM EDT 1.0 {application} active Clotri mazole-Betamethasone 1-0.05 % eCW1 (Pending Sale To [facility]) Betamethasone 0.5 MG/ML / Clotrimazole 1 0 MG/ML Topical Cream Clotrimazole- Betamethasone 1-0.05 % Clotrimazole-Betamethasone 1-0.05 % 05/19/2020 12:00:0 0 AM EDT 1.0 {application} active Clotri mazole-Betamethasone 1-0.05 % eCW1 (Pending Sale To [facility]) MetFORMIN HCl ER 500 MG MetFORMIN HCl ER 500 MG 02/07/2020 12:00:00 AM EDT 1.0 {tablet_with_evening_meal} active MetF ORMIN HCl ER 500 MG eCW1 (Pending Sale To [facility]) 24 HR Metformin hydrochloride 500 MG Ext ended Release Oral Tablet MetFORMIN HCl ER 500 MG MetFORMIN HCl ER 500 MG 02/07/2020 12:00:00 AM EDT 1.0 {tablet_with_evening_meal} suspended Met FORMIN HCl ER 500 MG eCW1 (Pending Sale To [facility]) 24 HR Metformin hydrochloride 500 MG Ext ended Release Oral Tablet MetFORMIN HCl ER 500 MG MetFORMIN HCl ER 500 MG 02/07/2020 12:00:00 AM EDT 1.0 {tablet_with_evening_meal} suspended Met FORMIN HCl ER 500 MG eCW1 (Pending Sale To [facility]) MetFORMIN HCl ER 500 MG MetFORMIN HCl ER 500 MG 02/07/2020 12:00:00 AM EDT 1.0 {tablet_with_evening_meal} active MetF ORMIN HCl ER 500 MG eCW1 (Pending Sale To [facility]) MetFORMIN HCl ER 500 MG MetFORMIN HCl ER 500 MG 02/07/2020 12:00:00 A M EDT active 1 tablet with evenin g meal eCW1 (Pending Sale To [facility]) MetFORMIN HCl ER 500 MG MetFORMIN HCl ER 500 MG 02/07/2020 12:00:00 AM EDT 1.0 {tablet_with_evening_meal} active MetF ORMIN HCl ER 500 MG eCW1 (Pending Sale To [facility]) MetFORMIN HCl ER 500 MG MetFORMIN HCl ER 500 MG 02/07/2020 12:00:00 AM EDT 1.0 {tablet_with_evening_meal} active MetF ORMIN HCl ER 500 MG eCW1 (Pending Sale To [facility]) 24 HR Metformin hydrochloride 500 MG Ext ended Release Oral Tablet MetFORMIN HCl ER 500 MG MetFORMIN HCl ER 500 MG 02/07/2020 12:00:00 AM EDT 1.0 {tablet_with_evening_meal} suspended Met FORMIN HCl ER 500 MG eCW1 (Pending Sale To [facility]) Metformin hydrochloride 500 MG Oral Tablet Metformin H Cl 500 MG Metformin HCl 500 MG 11/09/2019 12:00:00 AM EST active 1 tablet with a meal eCW1 (Pending Sale To [facility]) Metformin hydrochloride 500 MG Oral Tablet Metformin H Cl 500 MG Metformin HCl 500 MG 11/09/2019 12:00:00 AM EST active 1 tablet with a meal eCW1 (Pending [facility] To [facility]) Insurance Providers Payer name Policy type / Coverage type Policy ID Covered constitution party ID Covered constitution party's relationship to balderas Policy Balderas Plan Information EMEDNY [id number] SP [id number] SP [id number] [facility] [id number] SP [id number] [facility] O [id number] S [id number] MEDICAID M [id number] S [id number] [facility] Secure Horizons P [id number] S [id number] Medicare Wrap S [id number] S [id number] UHC UNITED MEDICARE DUAL G [id number] Self [id number] MEDICAID M [id number] Self [id number] MEDICAID [id number] SP [id number] MEDICARE [id number] SP [id number] [facility] [id number] SP [id number] [facility] [id number] SP [id number] [facility] Secure Horizons P [id number] S [id number] [facility] COMMUNITY PLAN MCDO [id number] SP [id number] Medicare S [id number] S [id number] [facility] CP DUAL COMP [place] [id number] 18 [id number] [facility] COMMUNTY PLAN [id number] 18 [id number] [facility] COMMUNITY PLAN XIX [id number] 18 [id number] MEDICAID [id number] 18 [id number] [facility] MEDICARE COMPLETE -PHYS [id number] 18 [id number] [facility] MEDICARE COMPLETE - O/P [id number] 18 [id number] MEDICAID -O/P EMERGENCY ROOM [id number] MEDICAID -PHYSICIAN [id number] UNHC CP DUAL COMP -PHYSICIAN [id number] 18 [id number] UNHC CP DUAL COMP - FACILITY [id number] 18 [id number] [facility] [place] [facility] [id number] 18 [id number] UNHC COMMUNITY PLAN XIX [id number] 18 [id number] MEDICAID [id number] Managed Care - [facility] O [id number] S [id number] [place] Medigap Part B [id number] Self [id number] Dual Complete Commercial [id number] Self [id number] [place]ig[place] Part B [id number] Self [id number] Dual Complete Commercial [id number] Self [id number] [facility] Comm Plan Medicare F [id number] SELF [id number] Medicare C [id number] SELF [id number] [place] Medicaid F [id number] SELF [id number] [facility] Comm Plan Medicaid F [id number] SELF [id number] [facility] Comm Plan Medicaid F [id number] SELF [id number] [facility] Communty Plan Medicaid [id number] Self [id number] MEDICAID [id number] 18 [id number] [facility] Communty Plan Medicaid [id number] Self [id number] [facility] Communty Plan Medicaid [id number] Self [id number] [facility] COMMUNTY PLAN [id number] 18 [id number] MEDICARE PART A [facility] [id number] 18 [id number] SECURE HORIZONS UNHC MEDICARE O/P [id number] 18 [id number] MEDICAID -O/P [id number] [facility] Secure Horizons P [id number] S [id number] BLUE CROSS BLUE SHIELD MCR -OP [id number] 18 [id number] MEDICARE [id number] SP [id number] ANSI-Medicaid [id number] ANSI-Medicare Part B [id number] Medicaid [place] Medigap Part B [id number] Self [id number] [facility] ([facility]) Commercial [id number] Self [id number] [place] Medig[place] Part [place] [id number] Self [id number] [facility] ([facility]) Commercial [id number] Self [id number] [place] Medig[place] Part [place] [id number] Self [id number] [facility] ([facility]) Commercial [id number] Self [id number] [place] Medigap Part [place] [id number] Self [id number] [facility] ([facility]) Commercial [id number] Self [id number] Medicare Wrap S [id number] S [id number] MEDICARE [id number] SP [id number] [facility] MEDICARE DUAL G [id number] Self [id number] [facility] DUAL COMPLETE O [id number] S [id number] [facility]) O [id number] S [id number] [facility] COMMUNITY PLAN XIX [id number] 18 [id number] [facility] Communty Plan Medicaid [id number] Self [id number] Medicaid Commercial [id number] Self [id number] Medicare Part A [place] Primary [id number] Self [id number] Managed Care - [facility] P [id number] S [id number] Medicaid [place] Medigap Part B [id number] Self [id number] [facility] ([facility]) Commercial [id number] Self [id number] MEDICAID [id number] SP [id number] MEDICARE C [id number] S [id number] Problems, Conditions, and Diagnoses Code Display Name Description Problem Type Effective Dates Data Source(s) I10 22340368 Essential (primary) hypertension Problem 09/14/2020 12:00:00 AM EST eCW1 (Pending [facility]) G47.9 87175103 Sleep disturbance, unspecified Problem 08/28/2020 12:00:00 AM EDT eCW1 (Pending Sale To [facility]) E78.6 [id number] Low HDL (under 40) Problem 11/15/2019 12:00: 00 AM EST eCW1 (Pending Sale To [facility]) E78.6 [id number] Low HDL (under 40) Problem 11/15/2019 12:00: 00 AM EST eCW1 (Pending Sale To [facility]) K21.9 [id number] Gastroesophageal reflux disease without e sophagitis Problem 11/07/2019 12:00:00 AM EST eCW1 (Pending Sale To [facility]) K21.0 063168217 GERD with esophagitis Problem 11/07/2019 12: 00:00 AM EST eCW1 (Pending Sale To [facility]) K21.9 737975395 Gastroesophageal reflux disease without e sophagitis Problem 11/07/2019 12:00:00 AM EST eCW1 (Pending Sale To [facility]) K21.0 809829054 GERD with esophagitis Problem 11/07/2019 12: 00:00 AM EST eCW1 (Pending Sale To [facility]) F43.12 Post-traumatic stress disorder, chronic Post-traumatic stress disorder, chronic Condition 10/28/2019 12:00:00 AM EST [facility] ([facility]) F20.89 Other schizophrenia Other schizophrenia Condition 1 12:00:00 AM EST [facility] ([facility]) F12.20 Cannabis dependence, uncomplicated Cannabis Use Disorder, Moderate Condition 10/28/2019 12:00:00 AM EST [facility] ([facility]) F32.9 Major depressive disorder, single episod e, unspecified Unspecified depressive Disorder Condition 10/28/2019 12:00:00 AM EST [facility] ([facility]) F17.210 91144775 Cigarette nicotine dependence without com plication Problem 10/18/2019 12:00:00 AM EST eCW1 (Pending [facility] To [facility]) F41.9 59796451 Anxiety Problem 10/18/2019 12:00:00 AM ES T eCW1 (Pending Sale To [facility]) I10 86130822 Essential hypertension Problem 10/18/2019 12 :00:00 AM EST eCW1 (Pending Sale To [facility]) F17.210 66634267 Cigarette nicotine dependence without com plication Problem 10/18/2019 12:00:00 AM EST eCW1 (Pending Sale To [facility]) F41.9 86628535 Anxiety Problem 10/18/2019 12:00:00 AM ES T eCW1 (Pending Sale To [facility]) I10 41408476 Essential hypertension Problem 10/18/2019 12 :00:00 AM EST eCW1 (Pending Sale To [facility]) Surgeries/Procedures Procedure Description Date Indications Data Source(s) HPV9 0.5mL (Gardasil 9) 02/20/2020 12:00:00 AM EDT eCW1 (Pending Sale To [facility]) Pneumococcal Adult 0.5mL (Pneumovax 23) 02/20/2020 12: 00:00 AM EDT eCW1 (Pending Sale To [facility]) IMMUNIZATION ADMIN 02/20/2020 12:00:00 AM EDT eCW1 (Pending Sale To [facility]) HPV9 (VFC) 0.5mL (Gardasil 9) 02/07/2020 12:00:00 AM E DT eCW1 (Pending Sale To [facility]) VFC Administration Charge 02/07/2020 12:00:00 AM EDT eCW1 (Pending Sale To [facility]) Injection: Tuberculin Purified Protein 0.1mL Intradermal (PP D) 11/13/2019 12:00:00 AM EST eCW1 ([facility]) TB Intradermal Test 11/08/2019 12:00:00 AM EST eCW1 (Pending Sale To [facility]) OFFICE OUTPATIENT VISIT 15 MINUTES 10/28 12:00:00 AM EST - 10/28/2019 12:00:00 AM EST [facility] ([facility]) OFFICE OUTPATIENT VISIT 15 MINUTES 10/28/2019 12:00:00 AM EST [facility] ([facility]) Office Visit, Est Pt., Level 2 FC 10/17/2019 12:00:00 AM EST eCW1 (Pending Sale To [facility]) PREVENT MED EXTENSION DIVISION DIRECTOR&/RISK FACTOR REDJ SPX 30 MIN 10/01/2019 12:00:00 AM EST - 10/01/2019 12:00:00 AM EST [facility] ([facility]) PREVENT MED EXTENSION DIVISION DIRECTOR&/RISK FACTOR REDJ SPX 30 MIN 10/01 12:00:00 AM EST [facility] ([facility]) Results ID Date Data Source LIPID PANEL (CARDIAC RISK) 11/01/2019 12:00:00 AM EST eCW1 ( Pending [facility] To [facility]) Name Value Range Interpretation Code Description Data Avis rce(s) Supporting Document(s) Triglyceride [Mass/volume] in Serum or Plasma by calculation 367 <150 TRIGLYCERIDES LEVEL eCW1 (Pending Sale To [facility]) Cholesterol in LDL [Mass/volume] in Serum or Plasma by calculation 43 <100 LDL CHOLESTEROL eCW1 (Pending Sale To [facility]) Cholesterol in HDL [Moles/volume] in Serum or Plasma 24 >40 HDL CHOLESTEROL eCW1 (Pending Sale To [facility]) 5.833 <5 CHOLESTEROL RISK RATIO eCW1 ([facility]) 116 NON-HDL-C eCW1 ([facility]) Cholesterol [Moles/volume] in Serum or Plasma 140 <200 CHOLESTEROL LEVEL eCW1 (Pending Sale To [facility]) ID Date Data Source [id number] 11/01/2019 12:00:00 AM EST eCW1 ([facility]) Name Value Range Interpretation Code Description Data Avis rce(s) Supporting Document(s) Hemoglobin A1c/Hemoglobin.total in Blood 5.6 HEMOGLOBIN A1c eCW1 (Pending Sale To [facility]) ID Date Data Source CBC with Differential 11/01/2019 12:00:00 AM EST eCW1 ([facility] [facility]) Name Value Range Interpretation Code Description Data Avis rce(s) Supporting Document(s) 10.9 4.0-10.0 WHITE BLOOD COUNT eCW1 ([facility]) 16.0 13.5-17.5 HEMOGLOBIN eCW1 ([facility]) 50.6 42.0-52.0 HEMATOCRIT eCW1 ([facility]) 5.93 4.30-6.10 RED BLOOD COUNT eCW1 ([facility]) 31.6 32.0-36.5 MEAN CORPUSCULAR HGB CONC eCW1 (Pending Sale To [facility]) 13.4 11.5-14.5 RED CELL DISTRIBUTION WID TH eCW1 (Pending Sale To [facility]) 320 150-450 PLATELET COUNT, AUTOMATED eCW1 (Pending Sale To [facility]) 85.3 80.0-96.0 MEAN CORPUSCULAR VOLUME e CW1 (Pending Sale To [facility]) 27.0 27.0-33.0 MEAN CORPUSCULAR HEMOGLOB IN eCW1 (Pending Sale To [facility]) Procedure Social History Code Duration Value Status Description Data Source(s ) Smoking 09/14/2020 12:00:00 AM EST Current Smoker completed Curre nt Smoker eCW1 ([facility]ending Sale To [facility]) Smoking 09/14/2020 12:00:00 AM EST Current Smoker completed Curre nt Smoker eCW1 (Pending Sale To [facility]) Smoking 09/14/2020 12:00:00 AM EST Current Smoker completed Curre nt Smoker eCW1 ([facility]ending Sale To [facility]) Smoking 02/17/2020 12:00:00 AM EDT Current Smoker completed Curre nt Smoker eCW1 ([facility]ending Sale To [facility]) Smoking 02/17/2020 12:00:00 AM EDT Current Smoker completed Curre nt Smoker eCW1 ([facility]ending Sale To [facility]) Smoking 02/17/2020 12:00:00 AM EDT Current Smoker completed Curre nt Smoker eCW1 ([facility]ending Sale To [facility]) Smoking 02/17/2020 12:00:00 AM EDT Current Smoker completed Curre nt Smoker eCW1 ([facility]ending Sale To [facility]) Smoking 10/28/2019 12:00:00 AM EST Unknown if ever smoked comp leted Unknown if ever smoked [facility] ([facility]) Smoking 10/01/2019 12:00:00 AM EST Unknown if ever smoked comp leted Unknown if ever smoked [facility] ([facility]) Vital Signs ID Date Data Source UNK Name Value Range Interpretation Code Description Data Source(s) Diastolic blood pressure 98 mm[Hg] 98 mm[Hg] eCW1 ([facility]ending Sale To [facility]) Systolic blood pressure 134 mm[Hg] 134 mm[Hg] e CW1 ([facility] To [facility]) Body temperature 97.3 [degF] 97.3 [degF] eCW1 ( [facility] To [facility]) Respiratory rate 18 /min 18 /min [facility] Heart rate 133 /min 133 /min eCW1 ([facility]) Body mass index (BMI) [Ratio] 36.69 kg/m2 36.69 kg/m2 eCW1 ([facility]ending Sale To [facility]) Body height 65.25 [in_i] 65.25 [in_i] eCW1 ([facility]) Body weight 222.2 [lb_av] 222.2 [lb_av] eCW1 ([facility]) Diastolic blood pressure 70 mm[Hg] 70 mm[Hg] eCW1 ([facility]ending Sale To [facility]) Systolic blood pressure 120 mm[Hg] 120 mm[Hg] e CW1 ([facility]ending Sale To [facility]) Body temperature 98.4 [degF] 98.4 [degF] eCW1 ( [facility] Sale To [facility]) Respiratory rate 20 /min 20 /min eCW1 [facility] Heart rate 88 /min 88 /min eCW1 ([facility]) Body mass index (BMI) [Ratio] 34.01 kg/m2 34.01 kg/m2 eCW1 ([facility]ending Sale To [facility]) Body height 65.25 [in_us] 65.25 [in_us] eCW1 ([facility]) Body weight Measured 206 [lb_av] 206 [lb_av] eC W1 ([facility] Sale To [facility]) Diastolic blood pressure 78 mm[Hg] 78 mm[Hg] eCW1 ([facility] Sale To [facility]) Systolic blood pressure 132 mm[Hg] 132 mm[Hg] e CW1 ([facility] Sale To [facility]) Body temperature 99.1 [degF] 99.1 [degF] eCW1 ( [facility] Sale To [facility]) Respiratory rate 18 /min 18 /min eCW1 [facility] Heart rate 127 /min 127 /min eCW1 ([facility]) Body mass index (BMI) [Ratio] 30.71 kg/m2 30.71 kg/m2 eCW1 ([facility]ending Sale To [facility]) Body height 65.25 [in_us] 65.25 [in_us] eCW1 ([facility]) Body weight Measured 186 [lb_av] 186 [lb_av] eC W1 ([facility]ending Sale To [facility]) Diastolic blood pressure 60 mm[Hg] 60 mm[Hg] eCW1 ([facility] Sale To [facility]) Systolic blood pressure 110 mm[Hg] 110 mm[Hg] e CW1 ([facility]ending Sale To [facility]) Body temperature 98.8 [degF] 98.8 [degF] eCW1 ( [facility] Sale To [facility]) Respiratory rate 20 /min 20 /min eCW1 [facility] Heart rate 88 /min 88 /min eCW1 ([facility]) Body mass index (BMI) [Ratio] 31.04 kg/m2 31.04 kg/m2 eCW1 ([facility] To [facility]) Body height 65.25 [in_us] 65.25 [in_us] eCW1 ([facility]) Body weight Measured 188 [lb_av] 188 [lb_av] eC W1 ([facility]ending Sale To [facility]) Respiratory rate 16 min Normal (applies to non-numeric results) 16 min [facility] ([facility]) Body height --lying 102 min Normal (applies to non-nume tyra results) 102 min [facility] ([facility] [address]) Diastolic blood pressure 88 mm[Hg] Normal (applies to non-numeric results) 88 mm[Hg] [facility] ([facility]) Systolic blood pressure 126 mm[Hg] Normal (applies t o non-numeric results) 126 mm[Hg] [facility] ([facility]) Body mass index (BMI) [Ratio] 31.45 kg/m2 No rmal (applies to non-numeric results) 31.45 kg/m2 [facility] ([facility]) Body weight Measured 189.00 lbs Normal (applies to n on-numeric results) 189.00 lbs [facility] ([facility]) Body height 65.00 in Normal (applies to non-numeric resu lts) 65.00 in [facility] ([facility]) Patient Treatment Plan of Care Planned Activity Planned Date Details Description Data Source (s) Diphenhydramine Hydrochloride 25 MG Oral Tablet [Benad ryl] 08/28/2020 12:00:00 AM EDT eCW1 ([facility]) Diphenhydramine Hydrochloride 25 MG Oral Tablet [Benad ryl] 08/28/2020 12:00:00 AM EDT eCW1 ([facility]) Diphenhydramine Hydrochloride 25 MG Oral Tablet [Benad ryl] 08/28/2020 12:00:00 AM EDT eCW1 ([facility]) Betamethasone 0.5 MG/ML / Clotrimazole 10 MG/ML Topica l Cream 05/19/2020 12:00:00 AM EDT eCW1 ([facility]) Betamethasone 0.5 MG/ML / Clotrimazole 10 MG/ML Topica l Cream 05/19/2020 12:00:00 AM EDT eCW1 ([facility]) Betamethasone 0.5 MG/ML / Clotrimazole 10 MG/ML Topica l Cream 05/19/2020 12:00:00 AM EDT eCW1 ([facility]) Betamethasone 0.5 MG/ML / Clotrimazole 10 MG/ML Topica l Cream 05/19/2020 12:00:00 AM EDT eCW1 ([facility]) Betamethasone 0.5 MG/ML / Clotrimazole 10 MG/ML Topica l Cream 05/19/2020 12:00:00 AM EDT eCW1 ([facility]) Betamethasone 0.5 MG/ML / Clotrimazole 10 MG/ML Topica l Cream 05/19/2020 12:00:00 AM EDT eCW1 ([facility]) MetFORMIN HCl ER 500 MG 02/07/2020 12:00:00 AM EDT eCW1 (Pending Sale To [facility]) MetFORMIN HCl ER 500 MG 02/07/2020 12:00:00 AM EDT eCW1 (Pending Sale To [facility]) MetFORMIN HCl ER 500 MG 02/07/2020 12:00:00 AM EDT eCW1 (Pending Sale To [facility]) MetFORMIN HCl ER 500 MG 02/07/2020 12:00:00 AM EDT eCW1 (Pending Sale To [facility]) MetFORMIN HCl ER 500 MG 02/07/2020 12:00:00 AM EDT eCW1 (Pending Sale To [facility]) Metformin hydrochloride 500 MG Oral Tablet 11/09/2019 12:00:[address] eCW1 (Pending Sale To [facility]) Metformin hydrochloride 500 MG Oral Tablet 11/09/2019 12:00:[address] eCW1 (Pending Sale To [facility])
--- OUTSIDE RECORDS SUMMARY | 2020-11-28 20:40 | CCD ---
Author Author [facility] Address Unknown Phone Unavailable Care Team Providers Care [place] Tribunal Member Name Role Phone Marjorie Barr Unavailable Unavailable [...] STATIONARY ENGINEER Unavailable Unavailable Barr, F Marjorie CAMP[facility] INTERVIEWS INTERN-BC Unavailable Unavailable Barr, F Marjorie CAMP[facility] INTERVIEWS INTERN-BC Unavailable Unavailable Barr, F Marjorie CAMP[facility] INTERVIEWS INTERN-BC Unavailable Unavailable Barr, F Marjorie CAMP[facility] INTERVIEWS INTERN-BC Unavailable Unavailable Barr, F Marjorie CAMP[facility] INTERVIEWS INTERN-BC Unavailable Unavailable Barr, F Marjorie CAMP[facility] INTERVIEWS INTERN-BC Unavailable Unavailable Barr, F Marjorie CAMP[facility] INTERVIEWS INTERN-BC Unavailable Unavailable Barr, F Marjorie CAMP[facility] INTERVIEWS INTERN-BC Unavailable Unavailable Barr, F Marjorie CAMP[facility] INTERVIEWS INTERN-BC Unavailable Unavailable Barr, F Marjorie CAMP[facility] INTERVIEWS INTERN-BC Unavailable Unavailable Barr, F Marjorie CAMP[facility] INTERVIEWS INTERN-BC Unavailable Unavailable Barr, F Marjorie CAMP[facility] INTERVIEWS INTERN-BC Unavailable Unavailable Barr, F Marjorie CAMP[facility] INTERVIEWS INTERN-BC Unavailable Unavailable Barr, F Marjorie CAMP[facility] INTERVIEWS INTERN-BC Unavailable Unavailable Barr, F Marjorie CAMP[facility] INTERVIEWS INTERN-BC Unavailable Unavailable Barr, F Marjorie CAMP[facility] INTERVIEWS INTERN-BC Unavailable Unavailable Barr, F Marjorie CAMP[facility] INTERVIEWS INTERN-BC Unavailable Unavailable Barr, F Marjorie CAMP[facility] INTERVIEWS INTERN-BC Unavailable Unavailable Barr, F Majrorie CAMP[facility] INTERVIEWS INTERN-BC Unavailable Unavailable Barr, F Marjorie CAMP[facility] INTERVIEWS INTERN-BC Unavailable Unavailable Barr, F Marjorie [facility] INTERVIEWS INTERN-BC Unavailable Unavailable Barr, F Marjorie [facility]AMP[facility] INTERVIEWS INTERN-BC Unavailable Unavailable Tara Rajput Unavailable Re-disclosure Warning [...] is protected by Article 27-F of the [facility] Public Health law. If you continue you may have access to information: Regarding HIV / AIDS; Provided by facilities licensed or operated by the [facility] Office of Mental Health; or Provided by the [facility] Office for People With Developmental Disabilities. If such information is present, then the following [facility] mandated warning applies: This information has [...] law may result in a fine or fdc sentence or both. A general authorization for the release of medical or other information is NOT sufficient authorization for further disc losure. Allergies and Adverse Reactions Type Description Substance Reaction Status Data Source(s ) Drug allergy PROzac Fluoxetine Hallucinations Active eCW1 ([facility]) Drug allergy Zofran Ondansetron Anaphylaxis Active eCW1 ([facility]) Wellbutrin Wellbutrin Wellbutrin Violence/Aggitation Active eCW1 ([facility]) Wellbutrin Wellbutrin Wellbutrin Violence/Aggitation Active eCW1 ([facility]) Wellbutrin Wellbutrin Wellbutrin Violence/Aggitation Active eCW1 ([facility]) Family History Family Member Name Family Member Gender Family Member Status Date o f Status Description Data Source(s) Unknown Unknown Problem MEDENT ([facility]) Unknown Male Problem MEDENT ([facility]) Unknown Male Problem MEDENT ([facility]) Encounters Encounter Providers Location Date Indications Data Source(s ) Unknown [address] [facility] [address] 11/18/2020 12:00:00 AM EST eCW1 ([facility]) [place] [address] [facility] [place] [address] 11/06/2020 12:00:00 AM EST eCW1 ([facility]) Outpatient [address] [facility] [place] [address] 08/28/2020 12:00:00 AM EDT eCW1 ([facility]) Unknown [address] [facility] [address] 08/18/2020 12:00:00 AM EDT eCW1 ([facility]) Unknown [address] [facility] [place] [address] 08/10/2020 12:00:00 AM EDT eCW1 ([facility]) Outpatient Attender: ANA VARGAS 06/16/2020 12:02:24 AM EDT [facility] Outpatient Attender: Marjorie VARGAS 06/10/2020 01: 22:00 PM EDT [facility] Unknown [address] [facility] [address] 05/18/2020 12:00:00 AM EDT eCW1 ([facility]) Unknown [address] [facility] [address] 05/15/2020 12:00:00 AM EDT eCW1 ([facility]) Outpatient Attender: Marjorie VARGAS 03/16/2020 02: 33:02 PM EDT [facility] [place] [address] [place] [phone] 03/16/2020 12:00:00 AM EDT eCW1 ([facility]) [facility] [address] [facility] [address] 03/13/2020 12:00:00 AM EDT eCW1 ([facility]) [facility] [place] [address] [facility] [address] 02/20/2020 12:00:00 AM EDT eCW1 ([facility]) [facility] [address] [facility] [address] 02/18/2020 12:00:00 AM EDT eCW1 ([facility]) [facility] [address] [place] [phone] 02/17/2020 12:00:00 AM EDT eCW1 ([facility]) [facility] G[facility] Resident [address] [place] [phone] 02/07/2020 12:00:00 AM EDT eCW1 ([facility]) Outpatient Attender: ANA VARGAS 01/24/2020 08:02:09 PM EDT [facility] Resident [address] [place] [phone] 11/30/2019 12:00:00 AM EST eCW1 ([facility]) Outpatient Attender: Marjorie DAMON FP 11/29/2019 04: 53:02 PM EST [facility] [place] [address] [place] [phone] 11/13/2019 12:00:00 AM EST eCW1 ([facility]) Unknown [address] [place] [address] 11/12/2019 12:00:00 AM EST eCW1 ([facility]) [facility] GME Resident [address] [place] [phone] 11/12/2019 12:00:00 AM EST eCW1 ([facility]) [facility] [address] [place] [phone] 11/11/2019 12:00:00 AM EST eCW1 ([facility]) [facility] GME Resident [address] [place] [phone] 11/11/2019 12:00:00 AM EST eCW1 ([facility]) [facility] [place] [address] [place] [phone] 11/11/2019 12:00:00 AM EST eCW1 ([facility]) [facility] GME Resident [address] [place] [phone] 11/09/2019 12:00:00 AM EST eCW1 ([facility]) [facility] G[facility] Resident [address] [place] [phone] 11/08/2019 12:00:00 AM EST eCW1 ([facility]) [facility] G[facility] Resident [address] [place] [phone] 11/08/2019 12:00:00 AM EST eCW1 ([facility]) Outpatient Attender: ANA VARGAS 10/28/2019 03:50:00 PM EST [facility] Outpatient Attender: Marjorie DAMON FP 10/28/2019 03: 49:02 PM EST [facility] Outpatient Attender: RACHNA LOYOLA DIESEL STATIONARY ENGINEER [facility] 10/28/2019 02:30:00 AM EST - 10/28/2019 02:30:00 AM EST [facility] ([facility]) Attender: RACHNA LOYOLA NP 10/28/2019 12:00:00 AM EST [facility] ([facility]) [facility] [address] [place] [phone] 10/19/2019 12:00:00 AM EST eCW1 ([facility]) [facility] GME Resident [address] [place] [phone] 10/17/2019 12:00:00 AM EST [facility]CW[facility] [place] [address] [place] [address], [place] [address] 10/17/2019 12:00:00 AM EST eCW1 ([facility]) Health Monitoring - 30 Min Attender: Tara Rajput [facility] alicia May 10/01/2019 02:00:00 AM EST - 10/01/2019 02:00:00 AM EST [facility] ([facility]) Attender: Tara Rajput 10/01/2019 12:00:00 AM EST [facility] ([facility]) Functional Status Immunizations Vaccine Date Status Description Data Source(s) pneumococcal polysaccharide PPV23 02/20/2020 04:22:00 PM EDT comple vladimir eCW1 ([facility]) pneumococcal polysaccharide PPV23 02/20/2020 04:22:00 PM EDT comple vladimir eCW1 ([facility]) pneumococcal polysaccharide PPV23 02/20/2020 04:22:00 PM EDT comple vladimir eCW1 ([facility]) pneumococcal polysaccharide PPV23 02/20/2020 04:22:00 PM EDT comple vladimir eCW1 ([facility]) pneumococcal polysaccharide PPV23 02/20/2020 04:22:00 PM EDT comple vladimir eCW1 ([facility]) pneumococcal polysaccharide PPV23 02/20/2020 04:22:00 PM EDT comple vladimir eCW1 ([facility]) pneumococcal polysaccharide PPV23 02/20/2020 04:22:00 PM EDT comple vladimir eCW1 ([facility]) pneumococcal polysaccharide PPV23 02/20/2020 04:22:00 PM EDT comple vladimir eCW1 ([facility]) HPV9 02/20/2020 04:21:00 PM EDT completed e CW1 ([facility]) HPV9 02/20/2020 04:21:00 PM EDT completed e CW1 ([facility]) HPV9 02/20/2020 04:21:00 PM EDT completed e CW1 ([facility]) HPV9 02/20/2020 04:21:00 PM EDT completed e CW1 ([facility]) HPV9 02/20/2020 04:21:00 PM EDT completed e CW1 ([facility]) HPV9 02/20/2020 04:21:00 PM EDT completed e CW1 ([facility]) HPV9 02/20/2020 04:21:00 PM EDT completed e CW1 ([facility]) HPV9 02/20/2020 04:21:00 PM EDT completed e CW1 ([facility]) Medications Medication Brand Name Start Date Product Form Dose Route Admi nistrative Instructions Pharmacy Instructions Status Indications Reaction Description Data Source(s) Diphenhydramine Hydrochloride 25 MG Oral Tablet [Benad ryl] Benadryl 25 MG Benadryl 25 MG 08/28/2020 12:00:00 AM EDT 1.0 {tablet} active Benadryl 25 MG eCW1 ([facility]) Diphenhydramine Hydrochloride 25 MG Oral Tablet [Benad ryl] Benadryl 25 MG Benadryl 25 MG 08/28/2020 12:00:00 AM EDT 1.0 {tablet} active Benadryl 25 MG eCW1 ([facility]) Diphenhydramine Hydrochloride 25 MG Oral Tablet [Benad ryl] Benadryl 25 MG Benadryl 25 MG 08/28/2020 12:00:00 AM EDT 1.0 {tablet} active Benadryl 25 MG eCW1 ([facility]) Betamethasone 0.5 MG/ML / Clotrimazole 1 0 MG/ML Topical Cream Clotrimazole- Betamethasone 1-0.05 % Clotrimazole-Betamethasone 1-0.05 % 05/19/2020 12:00:0 0 AM EDT 1.0 {application} active Clotri mazole-Betamethasone 1-0.05 % eCW1 ([facility]) Betamethasone 0.5 MG/ML / Clotrimazole 1 0 MG/ML Topical Cream Clotrimazole- Betamethasone 1-0.05 % Clotrimazole-Betamethasone 1-0.05 % 05/19/2020 12:00:0 0 AM EDT 1.0 {application} active Clotri mazole-Betamethasone 1-0.05 % eCW1 ([facility]) Betamethasone 0.5 MG/ML / Clotrimazole 1 0 MG/ML Topical Cream Clotrimazole- Betamethasone 1-0.05 % Clotrimazole-Betamethasone 1-0.05 % 05/19/2020 12:00:0 0 AM EDT 1.0 {application} active Clotri mazole-Betamethasone 1-0.05 % eCW1 ([facility]) Betamethasone 0.5 MG/ML / Clotrimazole 1 0 MG/ML Topical Cream Clotrimazole- Betamethasone 1-0.05 % Clotrimazole-Betamethasone 1-0.05 % 05/19/2020 12:00:0 0 AM EDT 1.0 {application} active Clotri mazole-Betamethasone 1-0.05 % eCW1 ([facility]) Betamethasone 0.5 MG/ML / Clotrimazole 1 0 MG/ML Topical Cream Clotrimazole- Betamethasone 1-0.05 % Clotrimazole-Betamethasone 1-0.05 % 05/19/2020 12:00:0 0 AM EDT 1.0 {application} active Clotri mazole-Betamethasone 1-0.05 % eCW1 ([facility]) Betamethasone 0.5 MG/ML / Clotrimazole 1 0 MG/ML Topical Cream Clotrimazole- Betamethasone 1-0.05 % Clotrimazole-Betamethasone 1-0.05 % 05/19/2020 12:00:0 0 AM EDT 1.0 {application} active Clotri mazole-Betamethasone 1-0.05 % eCW1 ([facility]) MetFORMIN HCl ER 500 MG MetFORMIN HCl ER 500 MG 02/07/2020 12:00:00 AM EDT 1.0 {tablet_with_evening_meal} active MetF ORMIN HCl ER 500 MG eCW1 ([facility]) 24 HR Metformin hydrochloride 500 MG Ext ended Release Oral Tablet MetFORMIN HCl ER 500 MG MetFORMIN HCl ER 500 MG 02/07/2020 12:00:00 AM EDT 1.0 {tablet_with_evening_meal} suspended Met FORMIN HCl ER 500 MG eCW1 ([facility]) 24 HR Metformin hydrochloride 500 MG Ext ended Release Oral Tablet MetFORMIN HCl ER 500 MG MetFORMIN HCl ER 500 MG 02/07/2020 12:00:00 AM EDT 1.0 {tablet_with_evening_meal} suspended Met FORMIN HCl ER 500 MG eCW1 ([facility]) MetFORMIN HCl ER 500 MG MetFORMIN HCl ER 500 MG 02/07/2020 12:00:00 AM EDT 1.0 {tablet_with_evening_meal} active MetF ORMIN HCl ER 500 MG eCW1 ([facility]) MetFORMIN HCl ER 500 MG MetFORMIN HCl ER 500 MG 02/07/2020 12:00:00 A M EDT active 1 tablet with evenin g meal eCW1 ([facility]) MetFORMIN HCl ER 500 MG MetFORMIN HCl ER 500 MG 02/07/2020 12:00:00 AM EDT 1.0 {tablet_with_evening_meal} active MetF ORMIN HCl ER 500 MG eCW1 ([facility]) MetFORMIN HCl ER 500 MG MetFORMIN HCl ER 500 MG 02/07/2020 12:00:00 AM EDT 1.0 {tablet_with_evening_meal} active MetF ORMIN HCl ER 500 MG eCW1 ([facility]) 24 HR Metformin hydrochloride 500 MG Ext ended Release Oral Tablet MetFORMIN HCl ER 500 MG MetFORMIN HCl ER 500 MG 02/07/2020 12:00:00 AM EDT 1.0 {tablet_with_evening_meal} suspended Met FORMIN HCl ER 500 MG eCW1 ([facility]) Metformin hydrochloride 500 MG Oral Tablet Metformin H Cl 500 MG Metformin HCl 500 MG 11/09/2019 12:00:00 AM EST active 1 tablet with a meal eCW1 ([facility]) Metformin hydrochloride 500 MG Oral Tablet Metformin H Cl 500 MG Metformin HCl 500 MG 11/09/2019 12:00:00 AM EST active 1 tablet with a meal eCW1 ([facility]) Insurance Providers Payer name Policy type / Coverage type Policy ID Covered republican ID Covered republican's relationship to balderas Policy Balderas Plan Information EMEDNY [id number] [id number] [id number] SP [id number] [facility] [id number] SP [id number] [facility] O [id number] S [id number] MEDICAID M [id number] S [id number] [facility] Secure Horizons P [id number] S [id number] Medicare Wrap S [id number] S [id number] UHC UNITED MEDICARE DUAL G [id number] Self [id number] MEDICAID M [id number] Self [id number] MEDICAID [id number] SP [id number] MEDICARE [id number] SP [id number] [facility] COMMUNITY PL[facility] [id number] SP [id number] [facility] [id number] SP [id number] [facility] Secure Horizons P [id number] S [id number] [facility] COMMUNITY PLAN MCDO [id number] SP [id number] Medicare S [id number] S [id number] [facility] CP DUAL COMP [place] [id number] 18 [id number] [facility] COMMUNTY PLAN [id number] 18 [id number] [facility] COMMUNITY PLAN XIX [id number] 18 [id number] MEDICAID [id number] [facility] MEDICARE COMPLETE -PHYS [id number] 18 [id number] [facility] MEDICARE COMPLETE - O/P [id number] 18 [id number] MEDICAID -O/P EMERGENCY ROOM [id number] MEDICAID -PHYSICIAN [id number] UNHC CP DUAL COMP -PHYSICIAN [id number] 18 [id number] UNHC CP DUAL COMP - FACILITY [id number] 18 [id number] [facility] COMMUNITY PLAN [place] [id number] 18 [id number] UNHC COMMUNITY PLAN XIX [id number] 18 [id number] MEDICAID [id number] Managed Care - [facility] O [id number] S [id number] Medicaid [place] Medigap Part B [id number] Self [id number] Dual Complete Commercial [id number] Self [id number] [place] Medigap Part B [id number] Self [id number] Dual Complete Commercial [id number] Self [id number] [facility] Comm Plan Medicare F [id number] SELF [id number] Medicare C [id number] SELF [id number] [place] Medicaid F [id number] SELF [id number] [facility] Comm Plan Medicaid F [id number] SELF [id number] [facility] Comm Plan Medicaid F [id number] SELF [id number] [facility] Communty Plan Medicaid [id number] Self [id number] MEDICAID [id number] [facility] Communty Plan Medicaid [id number] Self [id number] [facility] Communty Plan Medicaid [id number] Self [id number] [facility] COMMUNTY PLAN [id number] 18 [id number] MEDICARE PART A [facility] [id number] 18 [id number] SECURE [employer] UNHC MEDICARE O/P [id number] 18 [id number] MEDICAID -O/P [id number] [facility] Secure Horizons P [id number] S [id number] BLUE CROSS BLUE SHIELD MCR -OP [id number] 18 [id number] MEDICARE [id number] SP [id number] ANSI-Medicaid [id number] ANSI-Medicare Part B [id number] Medicaid [place] Medig[place] Part B [id number] Self [id number] [facility] ([facility]) Commercial [id number] Self [id number] [place]ig[place] Part [place] [id number] Self [id number] [facility] ([facility]) Commercial [id number] Self [id number] [place]ig[place] [id number] Self [id number] [facility] ([facility]) Commercial [id number] Self [id number] [place]ig[place] Part [place] [id number] Self [id number] [facility] ([facility]) Commercial [id number] Self [id number] Medicare Wrap S [id number] S [id number] MEDICARE [id number] SP [id number] [facility] MEDICARE DUAL G [id number] Self [id number] [facility] DUAL COMPLETE O [id number] S [id number] [facility] O [id number] S [id number] [facility] COMMUNITY PLAN XIX [id number] 18 [id number] [facility] Communty Plan Medicaid [id number] Self [id number] Medicaid Commercial [id number] Self [id number] Medicare Part A [place] Primary [id number] Self [id number] Managed Care - [facility] P [id number] S [id number] [place] Medig[place] Part B [id number] Self [id number] [facility] ([facility]) Commercial [id number] Self [id number] MEDICAID [id number] SP [id number] MEDICARE C [id number] S [id number] Problems, Conditions, and Diagnoses Code Display Name Description Problem Type Effective Dates Data Source(s) I10 81812791 Essential (primary) hypertension Problem 09/14/2020 12:00:00 AM EST eCW1 ([facility]) G47.9 67450514 Sleep disturbance, unspecified Problem 08/28/2020 12:00:00 AM EDT eCW1 ([facility]) E78.6 272241395 Low HDL (under 40) Problem 11/15/2019 12:00: 00 AM EST eCW1 ([facility]) E78.6 134842224 Low HDL (under 40) Problem 11/15/2019 12:00: 00 AM EST eCW1 ([facility]) K21.9 544882156 Gastroesophageal reflux disease without e sophagitis Problem 11/07/2019 12:00:00 AM EST eCW1 ([facility]) K21.0 573625720 GERD with esophagitis Problem 11/07/2019 12: 00:00 AM EST eCW1 ([facility]) K21.9 972511300 Gastroesophageal reflux disease without e sophagitis Problem 11/07/2019 12:00:00 AM EST eCW1 ([facility]) K21.0 312492069 GERD with esophagitis Problem 11/07/2019 12: 00:00 AM EST eCW1 ([facility]) F43.12 Post-traumatic stress disorder, chronic Post-traumatic stress disorder, chronic Condition 10/28/2019 12:00:00 AM EST [facility] ([facility]) F20.89 Other schizophrenia Other schizophrenia Condition 1 12:00:00 AM EST [facility] ([facility]) F12.20 Cannabis dependence, uncomplicated Cannabis Use Disorder, Moderate Condition 10/28/2019 12:00:00 AM EST [facility] ([facility]) F32.9 Major depressive disorder, single episod e, unspecified Unspecified depressive Disorder Condition 10/28/2019 12:00:00 AM EST [facility] ([facility]) F17.210 72974719 Cigarette nicotine dependence without com plication Problem 10/18/2019 12:00:00 AM EST eCW1 ([facility]) F41.9 01807222 Anxiety Problem 10/18/2019 12:00:00 AM ES T eCW1 ([facility]) I10 09477701 Essential hypertension Problem 10/18/2019 12 :00:00 AM EST eCW1 ([facility]) F17.210 04722438 Cigarette nicotine dependence without com plication Problem 10/18/2019 12:00:00 AM EST eCW1 ([facility]) F41.9 77734965 Anxiety Problem 10/18/2019 12:00:00 AM ES T eCW1 ([facility]) I10 49288523 Essential hypertension Problem 10/18/2019 12 :00:00 AM EST eCW1 ([facility]) Surgeries/Procedures Procedure Description Date Indications Data Source(s) HPV9 0.5mL (Gardasil 9) 02/20/2020 12:00:00 AM EDT eCW1 ([facility]) Pneumococcal Adult 0.5mL (Pneumovax 23) 02/20/2020 12: 00:00 AM EDT eCW1 ([facility]) IMMUNIZATION ADMIN 02/20/2020 12:00:00 AM EDT eCW1 ([facility]) HPV9 (VFC) 0.5mL (Gardasil 9) 02/07/2020 12:00:00 AM E DT eCW1 ([facility]) VFC Administration Charge 02/07/2020 12:00:00 AM EDT eCW1 ([facility]) Injection: Tuberculin Purified Protein 0.1mL Intradermal (PP D) 11/13/2019 12:00:00 AM EST eCW1 ([facility]) TB Intradermal Test 11/08/2019 12:00:00 AM EST eCW1 ([facility]) OFFICE OUTPATIENT VISIT 15 MINUTES 10/28 12:00:00 AM EST - 10/28/2019 12:00:00 AM EST [facility] ([facility]) OFFICE OUTPATIENT VISIT 15 MINUTES 10/28/2019 12:00:00 AM EST [facility] ([facility]) Office Visit, Est Pt., Level 2 FC 10/17/2019 12:00:00 AM EST eCW1 ([facility]) PREVENT MED ABSTRACT SEARCHER&/RISK FACTOR REDJ SPX 30 MIN 10/01/2019 12:00:00 AM EST - 10/01/2019 12:00:00 AM EST [facility] ([facility]) PREVENT MED ABSTRACT SEARCHER&/RISK FACTOR REDJ SPX 30 MIN 10/01 12:00:00 AM EST [facility] ([facility]) Results ID Date Data Source LIPID PANEL (CARDIAC RISK) 11/01/2019 12:00:00 AM EST eCW1 ( [facility]) Name Value Range Interpretation Code Description Data Avis rce(s) Supporting Document(s) Triglyceride [Mass/volume] in Serum or Plasma by calculation 367 <150 TRIGLYCERIDES LEVEL eCW1 ([facility]) Cholesterol in LDL [Mass/volume] in Serum or Plasma by calculation 43 <100 LDL CHOLESTEROL eCW1 ([facility]) Cholesterol in HDL [Moles/volume] in Serum or Plasma 24 >40 HDL CHOLESTEROL eCW1 ([facility]) 5.833 <5 CHOLESTEROL RISK RATIO eCW1 ([facility]) 116 NON-HDL-C eCW1 ([facility]) Cholesterol [Moles/volume] in Serum or Plasma 140 <200 CHOLESTEROL LEVEL eCW1 ([facility]) ID Date Data Source [id number] 11/01/2019 12:00:00 AM EST eCW1 ([facility]) Name Value Range Interpretation Code Description Data Avis rce(s) Supporting Document(s) Hemoglobin A1c/Hemoglobin.total in Blood 5.6 HEMOGLOBIN A1c eCW1 ([facility]) ID Date Data Source CBC with Differential 11/01/2019 12:00:00 AM EST eCW1 ([facility]) Name Value Range Interpretation Code Description Data Avis rce(s) Supporting Document(s) 10.9 4.0-10.0 WHITE BLOOD COUNT eCW1 ([facility]) 16.0 13.5-17.5 HEMOGLOBIN eCW1 ([facility]) 50.6 42.0-52.0 HEMATOCRIT eCW1 ([facility]) 5.93 4.30-6.10 RED BLOOD COUNT eCW1 ([facility]) 31.6 32.0-36.5 MEAN CORPUSCULAR HGB CONC eCW1 ([facility]) 13.4 11.5-14.5 RED CELL DISTRIBUTION WID TH eCW1 ([facility]) 320 150-450 PLATELET COUNT, AUTOMATED eCW1 ([facility]) 85.3 80.0-96.0 MEAN CORPUSCULAR VOLUME e CW1 ([facility]) 27.0 27.0-33.0 MEAN CORPUSCULAR HEMOGLOB IN eCW1 ([facility]) Procedure Social History Code Duration Value Status Description Data Source(s ) Smoking 09/14/2020 12:00:00 AM EST Current Smoker completed Curre nt Smoker eCW1 ([facility]) Smoking 09/14/2020 12:00:00 AM EST Current Smoker completed Curre nt Smoker eCW1 ([facility]) Smoking 09/14/2020 12:00:00 AM EST Current Smoker completed Curre nt Smoker eCW1 ([facility]) Smoking 02/17/2020 12:00:00 AM EDT Current Smoker completed Curre nt Smoker eCW1 ([facility]) Smoking 02/17/2020 12:00:00 AM EDT Current Smoker completed Curre nt Smoker eCW1 ([facility]) Smoking 02/17/2020 12:00:00 AM EDT Current Smoker completed Curre nt Smoker eCW1 ([facility]) Smoking 02/17/2020 12:00:00 AM EDT Current Smoker completed Curre nt Smoker eCW1 ([facility]) Smoking 10/28/2019 12:00:00 AM EST Unknown if ever smoked comp leted Unknown if ever smoked [facility] ([facility]) Smoking 10/01/2019 12:00:00 AM EST Unknown if ever smoked comp leted Unknown if ever smoked [facility] ([facility]) Vital Signs ID Date Data Source UNK Name Value Range Interpretation Code Description Data Source(s) Diastolic blood pressure 98 mm[Hg] 98 mm[Hg] eCW1 ([facility]) Systolic blood pressure 134 mm[Hg] 134 mm[Hg] e CW1 ([facility]) Body temperature 97.3 [degF] 97.3 [degF] eCW1 ( [facility]) Respiratory rate 18 /min 18 /min eCW1 ([facility]) Heart rate 133 /min 133 /min eCW1 ([facility], [facility]) Body mass index (BMI) [Ratio] 36.69 kg/m2 36.69 kg/m2 eCW1 ([facility]) Body height 65.25 [in_i] 65.25 [in_i] eCW1 ([facility]) Body weight 222.2 [lb_av] 222.2 [lb_av] eCW1 ([facility]) Diastolic blood pressure 70 mm[Hg] 70 mm[Hg] eCW1 ([facility]) Systolic blood pressure 120 mm[Hg] 120 mm[Hg] e CW1 ([facility]) Body temperature 98.4 [degF] 98.4 [degF] eCW1 ( [facility]) Respiratory rate 20 /min 20 /min eCW1 ([facility]) Heart rate 88 /min 88 /min eCW1 ([facility], [facility]) Body mass index (BMI) [Ratio] 34.01 kg/m2 34.01 kg/m2 eCW1 ([facility]) Body height 65.25 [in_us] 65.25 [in_us] eCW1 ([facility]) Body weight Measured 206 [lb_av] 206 [lb_av] eC W1 ([facility]) Diastolic blood pressure 78 mm[Hg] 78 mm[Hg] eCW1 ([facility]) Systolic blood pressure 132 mm[Hg] 132 mm[Hg] e CW1 ([facility]) Body temperature 99.1 [degF] 99.1 [degF] eCW1 ( [facility]) Respiratory rate 18 /min 18 /min eCW1 ([facility]) Heart rate 127 /min 127 /min eCW1 ([facility], [facility]) Body mass index (BMI) [Ratio] 30.71 kg/m2 30.71 kg/m2 eCW1 ([facility]) Body height 65.25 [in_us] 65.25 [in_us] eCW1 ([facility]) Body weight Measured 186 [lb_av] 186 [lb_av] eC W1 ([facility]) Diastolic blood pressure 60 mm[Hg] 60 mm[Hg] eCW1 ([facility]) Systolic blood pressure 110 mm[Hg] 110 mm[Hg] e CW1 ([facility]) Body temperature 98.8 [degF] 98.8 [degF] eCW1 ( [facility]) Respiratory rate 20 /min 20 /min eCW1 ([facility]) Heart rate 88 /min 88 /min eCW1 ([facility], [facility]) Body mass index (BMI) [Ratio] 31.04 kg/m2 31.04 kg/m2 eCW1 ([facility]) Body height 65.25 [in_us] 65.25 [in_us] eCW1 ([facility]) Body weight Measured 188 [lb_av] 188 [lb_av] eC W1 ([facility]) Respiratory rate 16 min Normal (applies to non-numeric results) 16 min [facility] ([facility]) Body height --lying 102 min Normal (applies to non-nume tyra results) 102 min [facility] ([facility]) Diastolic blood pressure 88 mm[Hg] Normal (applies to non-numeric results) 88 mm[Hg] [facility] ([facility]) Systolic blood pressure 126 mm[Hg] Normal (applies t o non-numeric results) 126 mm[Hg] [facility] ([facility]) Body mass index (BMI) [Ratio] 31.45 kg/m2 No rmal (applies to non-numeric results) 31.45 kg/m2 [facility] ([facility]) Body weight Measured 189.00 lbs Normal (applies to n on-numeric results) 189.00 lbs [facility] ([facility]) Body height 65.00 in Normal (applies to non-numeric resu lts) 65.00 in [facility] ([facility]) Patient Treatment Plan of Care Planned Activity Planned Date Details Description Data Source (s) Diphenhydramine Hydrochloride 25 MG Oral Tablet [Benad ryl] 08/28/2020 12:00:00 AM EDT eCW1 ([facility]) Diphenhydramine Hydrochloride 25 MG Oral Tablet [Benad ryl] 08/28/2020 12:00:00 AM EDT eCW1 ([facility]) Diphenhydramine Hydrochloride 25 MG Oral Tablet [Benad ryl] 08/28/2020 12:00:00 AM EDT eCW1 ([facility]) Betamethasone 0.5 MG/ML / Clotrimazole 10 MG/ML Topica l Cream 05/19/2020 12:00:00 AM EDT eCW1 ([facility]) Betamethasone 0.5 MG/ML / Clotrimazole 10 MG/ML Topica l Cream 05/19/2020 12:00:00 AM EDT eCW1 ([facility]) Betamethasone 0.5 MG/ML / Clotrimazole 10 MG/ML Topica l Cream 05/19/2020 12:00:00 AM EDT eCW1 ([facility]) Betamethasone 0.5 MG/ML / Clotrimazole 10 MG/ML Topica l Cream 05/19/2020 12:00:00 AM EDT eCW1 ([facility]) Betamethasone 0.5 MG/ML / Clotrimazole 10 MG/ML Topica l Cream 05/19/2020 12:00:00 AM EDT eCW1 ([facility]) Betamethasone 0.5 MG/ML / Clotrimazole 10 MG/ML Topica l Cream 05/19/2020 12:00:00 AM EDT eCW1 ([facility]) MetFORMIN HCl ER 500 MG 02/07/2020 12:00:00 AM EDT eCW1 ([facility]) MetFORMIN HCl ER 500 MG 02/07/2020 12:00:00 AM EDT eCW1 ([facility]) MetFORMIN HCl ER 500 MG 02/07/2020 12:00:00 AM EDT eCW1 ([facility]) MetFORMIN HCl ER 500 MG 02/07/2020 12:00:00 AM EDT eCW1 ([facility]) MetFORMIN HCl ER 500 MG 02/07/2020 12:00:00 AM EDT eCW1 ([facility]) Metformin hydrochloride 500 MG Oral Tablet 11/09/2019 12:00:[address] eCW1 ([facility]) Metformin hydrochloride 500 MG Oral Tablet 11/09/2019 12:00:[address] eCW1 ([facility])
[2020-11-28] MEDS ORDERED: AUGMENTIN 875 MG TAB PO ONE (21:00)
[2020-11-28] MEDS ORDERED: CIPROFLOXACIN HC OTIC SUSPENSION AD ONE (21:00)
[2020-11-28] MEDS ORDERED: AUGM875T28 PO (21:06)
[2020-11-28] MEDS ORDERED: CIPRHCOTIC OTIC (21:06)
[2020-11-28] MEDS ORDERED: cloNIDine 0.1MG TABLET PO ONE (21:30)
[2020-11-28 21:32] VITALS: BP 142/110
[2020-11-28 21:39] VITALS: BP 142/110
== END 2020-11-28 21:39 | disposition home or self-care (01) ==
LOC: M ED 19:54
DX: H72.91 Unspecified perforation of tympanic membrane, right ear (principal); H60.11 Cellulitis of right external ear; J44.9 Chronic obstructive pulmonary disease, unspecified; R56.9 Unspecified convulsions; Z79.899 Other long term (current) drug therapy; Z88.8 Allergy status to other drugs, medicaments and biological substances; F17.210 Nicotine dependence, cigarettes, uncomplicated

== ENCOUNTER → 2020-12-04 | Outpatient (REF) | payer MEDICARE, MEDICAID ==
[~2020-12-04] MED LIST changes: +AUGM875T28 PO; +CIPRHCOTIC OTIC; +HYDR-3490; -HYDR25TAB
[2020-12-04 17:28] LABS: ALBUMIN 3.8 GM/DL (3.2-5.2); ALT/SGPT 81 U/L (12-78); BILIRUBIN,TOTAL 0.2 MG/DL (0.2-1.0); BLOOD UREA NITROGEN 11 MG/DL (7-18); CALCIUM LEVEL 9.7 MG/DL (8.5-10.1); CARBON DIOXIDE LEVEL 29 MEQ/L (21-32); CHLORIDE LEVEL 105 MEQ/L (98-107); CHOLESTEROL LEVEL 215 MG/DL (<200); CHOLESTEROL RISK RATIO 7.962 (<5); CREATININE FOR GFR 0.74 MG/DL (0.70-1.30); GLOMERULAR FILTRATION RATE > 60.0 (>60); GLUCOSE, FASTING 85 MG/DL (70-100); HDL CHOLESTEROL 27 MG/DL (>40); LDL CHOLESTEROL 129 MG/DL (<100); NON-HDL-C 188 MG/DL; POTASSIUM SERUM 3.9 MEQ/L (3.5-5.1); SODIUM LEVEL 142 MEQ/L (136-145); TOTAL PROTEIN 7.3 GM/DL (6.4-8.2); TRIGLYCERIDES LEVEL 294 MG/DL (<150)
[2020-12-04 17:30] LABS: HEMOGLOBIN A1c 5.5 %
== END ==
LOC: M SFHCPLAZ 15:34
DX: R73.03 Prediabetes (principal); I10 Essential (primary) hypertension
CPT/HCPCS: 36415; 80053; 80061; 83036; G0463

== ENCOUNTER 2021-03-01 21:01 | Emergency (ER) | payer MEDICARE, MEDICAID ==
[~2021-03-01] VITALS: Ht 167.6 cm; Wt 95.5 kg
[2021-03-01] MEDS ORDERED: ASPIRIN 325 MG TAB PO ONE (22:00)
[2021-03-01 22:35] LABS: BASO # 0.1 10^3/uL (0.0-0.2); BASO % 1.1 % (0.0-1.0); EOS # 0.4 10^3/uL (0.0-0.5); EOS % 2.6 % (0.0-3.0); HEMATOCRIT 50.1 % (42.0-52.0); HEMOGLOBIN 16.5 g/dl (13.5-17.5); LYMPH # 4.5 10^3/uL (1.5-5.0); LYMPH % 33.5 % (24.0-44.0); MEAN CORPUSCULAR HEMOGLOBIN 27.7 pg (27.0-33.0); MEAN CORPUSCULAR HGB CONC 32.9 g/dl (32.0-36.5); MEAN CORPUSCULAR VOLUME 84.2 fl (80.0-96.0); MONO # 1.2 10^3/uL (0.0-0.8); NEUTROPHILS # 7.1 10^3/uL (1.5-8.5); NEUTROPHILS % 53.4 % (36.0-66.0); PLATELET COUNT, AUTOMATED 263 10^3/uL (150-450); RED BLOOD COUNT 5.95 10^6/uL (4.30-6.10); WHITE BLOOD COUNT 13.3 10^3/uL (4.0-10.0)
--- NOTE | 2021-03-01 23:46 | REPVR ---
PROCEDURE INFORMATION: Exam: XR Chest Exam date and time: 03/01/2021 10:47 PM Age: 25 years old Clinical indication: Chest pain TECHNIQUE: Imaging protocol: XR of the chest. Views: 2 views. COMPARISON: No relevant prior studies available. FINDINGS: Lungs: Unremarkable. No consolidation. Pleural spaces: Unremarkable. No pleural effusion. No pneumothorax. Heart/Mediastinum: Unremarkable. No cardiomegaly. Bones/joints: Unremarkable. Soft tissues: There are moderately generous overlying soft tissues. IMPRESSION: Negative chest. Electronically signed by: Stanislav Torres On 03/01/2021 23:46:05 PM
[2021-03-02] MEDS ORDERED: ISOVUE-370 76% 100ML VIAL As Ordered ONE (00:34)
[2021-03-02 01:10] LABS: ALBUMIN 3.7 GM/DL (3.2-5.2); ALT/SGPT 85 U/L (12-78); BILIRUBIN,DIRECT < 0.1 MG/DL (0.0-0.2); BILIRUBIN,TOTAL 0.4 MG/DL (0.2-1.0); BLOOD UREA NITROGEN 10 MG/DL (7-18); CALCIUM LEVEL 9.6 MG/DL (8.5-10.1); CARBON DIOXIDE LEVEL 30 MEQ/L (21-32); CHLORIDE LEVEL 103 MEQ/L (98-107); CK-MB VALUE MASS < 1.0 NG/ML (<3.6); CPK CREATINE PHOSPHOKINASE 110 U/L (39-308); CREATININE FOR GFR 0.63 MG/DL (0.70-1.30); FREE T4 1.04 NG/DL (0.76-1.46); GLOMERULAR FILTRATION RATE > 60.0 (>60); GLUCOSE, FASTING 107 MG/DL (70-100); LIPASE 110 U/L (73-393); MB/CK RELATIVE INDEX 0.91 (< OR =4); SODIUM LEVEL 140 MEQ/L (136-145); TOTAL PROTEIN 7.2 GM/DL (6.4-8.2); TROPONIN I < 0.02 NG/ML (< 0.10)
--- NOTE | 2021-03-02 02:13 | REPVR ---
PROCEDURE INFORMATION: Exam: CTA Chest With Contrast Exam date and time: 03/02/2021 1:47 AM Age: 25 years old Clinical indication: Chest pain; Additional info: R/O pe TECHNIQUE: Imaging protocol: Computed tomographic angiography of the chest with contrast. 3D rendering (Not supervised by radiologist): MIP and/or 3D reconstructed images were created by the technologist. Radiation optimization: All CT scans at this facility use at least one of these dose optimization techniques: automated exposure control; mA and/or kV adjustment per patient size (includes targeted exams where dose is matched to clinical indication); or iterative reconstruction. Contrast material: ISOVUE 370; Contrast volume: 75 ml; Contrast route: INTRAVENOUS (IV); COMPARISON: CR Chest, 2 view PA, Lat 03/01/2021 10:38 PM FINDINGS: Pulmonary arteries: The main pulmonary artery measures 22 mm. No pulmonary embolism is identified. Aorta: The ascending thoracic aorta measures 27 mm. Lungs: Minimal scattered ground-glass infiltrates. There is some motion in the lower lobes with image degradation. Pleural spaces: Unremarkable. No pneumothorax. No pleural effusion. Heart: Unremarkable. No cardiomegaly. No pericardial effusion. Mediastinal space: There is heterogeneous soft tissue conforming to the anterior mediastinum consistent with residual thymic tissue. Lymph nodes: Unremarkable. No enlarged lymph nodes. Gallbladder and bile ducts: The gallbladder is contracted with no stones. Bones/joints: Slight anterior wedge configuration of T12 which appears to be chronic. Soft tissues: Unremarkable. IMPRESSION: 1. Minimal scattered ground-glass pulmonary infiltrates. 2. Otherwise negative CTA chest. No pulmonary embolism is identified. Electronically signed by: Stanislav Torres On 03/02/2021 02:12:54 AM
[2021-03-02 02:30] VITALS: BP 119/70
--- NOTE | 2021-03-02 17:46 | ECGEPIP ---
[facility] - ED Test Date: 2021-03-01 Pat Name: HAILEE MANCIA Department: Room: - Gender: Male [employer]: ED : 1995 Requested By: UMBERTO Harper Order Number: [id number] Reading MD: Charu Baumann Measurements Intervals [place] Rate: 108 P: 56 FL: 142 QRS: 49 QRSD: 82 T: 42 QT: 324 QTc: 434 Interpretive Statements Sinus tachycardia Possible Left atrial enlargement nsttw abnormality decreased rate 11/17/20 Electronically Signed on 03-02-2021 17:46:45 EDT by Charu Baumann
== END 2021-03-02 03:20 | disposition home or self-care (01) ==
LOC: M ED 21:01
DX: R07.89 Other chest pain (principal); R06.02 Shortness of breath; I10 Essential (primary) hypertension; F41.9 Anxiety disorder, unspecified; R56.9 Unspecified convulsions; Z79.899 Other long term (current) drug therapy; F17.210 Nicotine dependence, cigarettes, uncomplicated; F12.20 Cannabis dependence, uncomplicated
CPT/HCPCS: 36415; 71046; 71275; 80048; 80076; 82550; 82553; 83690; 84439; 84443; 84484; 85025; 85379; 93005; 93041; 94760; 99285; Q9967

== ENCOUNTER 2021-12-03 19:48 | Emergency (ER) | payer MEDICARE, MEDICAID ==
[~2021-12-03] VITALS: Ht 165.1 cm; Wt 110.9 kg
[~2021-12-03 19:48] MED LIST changes: +LOSA25TA13 PO; -LOSA25TA14 PO; -OLAN10TA2 PO; +OLAN1TAB20 PO; -OMEP-221 PO; +OMEP40CA4; +OMEP40CA5 PO; -OMEP40CA97
[2021-12-03] MEDS ORDERED: ATOR40TA75 PO (20:33)
[2021-12-03] MEDS ORDERED: CITA40TA7 PO (20:33)
[2021-12-03] MEDS ORDERED: TRAZ-252 PO (20:33)
[2021-12-04] MEDS ORDERED: KETOROLAC 30 MG/ML 1ML VIAL IV ONE (01:05)
[2021-12-04 03:01] VITALS: BP 130/70
== END 2021-12-04 03:18 | disposition left against medical advice (07) ==
LOC: EDBD 19:48 → M ED 19:48
DX: Z53.29 Procedure and treatment not carried out because of patient's decision for other reasons (principal)